=== PATIENT | male | born 1950 | race Caucasian/White ===

== ENCOUNTER → 2023-09-30 10:44 | Outpatient (REF) | payer MEDICARE, OTHER, SELFPAY ==
[2023-09-30 12:09] LABS: ALT (SGPT) 18 U/L (0-50); AST (SGOT) 31 U/L (17-59); Albumin 4.4 g/dl (3.5-5.0); Alkaline Phosphatase 36 U/L (38-126); Direct Bilirubin 0.6 mg/dl (0.0-0.4); Glucose 83 mg/dl (70-99); HDL Cholesterol 55 mg/dl; LDL Cholesterol, Calculated 26 mg/dl; Total Bilirubin 0.6 mg/dl (0.2-1.3); Total Cholesterol 105 mg/dl (50-199); Total Protein 6.4 g/dl (6.3-8.2); Triglyceride 123 mg/dl (10-149); Very Low Density Lipoprotein 24 mg/dl (0-30)
[2023-09-30 12:13] LABS: Glycohemoglobin (HgbA1c) 6.3 % (4.0-5.6)
[2023-10-04 08:35] LABS: Pancreatic Elastase, Fecal 80 ug/g (>=100)
== END ==
LOC: REG 10:44
PROVIDERS: ATTENDING PHYSICIAN Internal Medicine Gastroenterology; FAMILY PHYSICIAN Internal Medicine
DX: K86.1 Other chronic pancreatitis (principal); E11.59 Type 2 diabetes mellitus with other circulatory complications; E78.2 Mixed hyperlipidemia; I10 Essential (primary) hypertension
CPT/HCPCS: 36415; 80061; 80076; 82653; 82947; 83036

== ENCOUNTER → 2024-02-15 09:20 | Outpatient (REF) | payer MEDICARE, OTHER, SELFPAY ==
[2024-02-15 10:50] LABS: Protein/creatinine Ratio 0.1; Urine Protein 5 mg/dl
[2024-02-15 11:04] LABS: % Basophils 0.4 % (0-2); % Eosinophils 2.2 % (0-6); % Immature Granulocytes 0.4 % (0-0.5); % Lymphocytes 21.9 % (20.5-51.1); % Monocytes 7.8 % (1.7-9.3); % Neutrophils 67.3 % (42.2-75.2); Absolute Eosinophils 0.1 10^3/uL (0-0.7); Absolute Lymphocytes 1.2 10^3/uL (1.2-3.4); Absolute Monocytes 0.4 10^3/uL (0.1-0.6); Absolute Neutrophils 3.7 10^3/uL (1.4-6.5); Hematocrit 42.8 % (39.0-52.0); Hemoglobin 14.1 g/dL (13.0-18.0); Mean Corp Hgb Conc. 32.9 g/dL (33.0-37.0); Mean Corpuscular Hgb 31.3 pg (27.0-31.0); Mean Corpuscular Volume 94.9 fL (80.0-94.0); Mean Platelet Volume 12.3 fL (7.4-10.4); Nucleated Red Blood Cells % 0 % (-); Platelet Count 122 10^3/uL (130-400); Red Blood Cell Count 4.51 10^6/uL (4.70-6.10); Red Cell Dist. Width 12.1 % (11.5-14.5); White Blood Cell Count 5.5 10^3/uL (4.8-10.8)
[2024-02-15 11:55] LABS: ALT (SGPT) 15 U/L (0-50); AST (SGOT) 29 U/L (17-59); Albumin 4.7 g/dl (3.5-5.0); Alkaline Phosphatase 34 U/L (38-126); Blood Urea Nitrogen 29 mg/dl (9-20); Carbon Dioxide 30 mmol/L (22-30); Chloride 102 mmol/L (98-107); Direct Bilirubin 0.3 mg/dl (0.0-0.4); Glucose 88 mg/dl (70-99); HDL Cholesterol 59 mg/dl; LDL Cholesterol, Calculated 49 mg/dl; Magnesium 1.8 mg/dl (1.6-2.3); Phosphorus 3.6 mg/dl (2.5-4.5); Potassium 4.9 mmol/L (3.5-5.1); Sodium 140 mmol/L (135-145); Total Bilirubin 0.6 mg/dl (0.2-1.3); Total Cholesterol 126 mg/dl (50-199); Total Protein 6.8 g/dl (6.3-8.2); Triglyceride 94 mg/dl (10-149); Very Low Density Lipoprotein 18 mg/dl (0-30); eGFR 52.74
[2024-02-15 12:15] LABS: Glycohemoglobin (HgbA1c) 6.1 % (4.0-5.6)
[2024-02-16 09:26] LABS: Intact PTH 22.5 pg/ml (13.6-85.8)
[2024-02-17 12:20] LABS: Tacrolimus (Prograft - FK506) 2.9 ng/mL
== END ==
LOC: REG 09:20
PROVIDERS: ATTENDING PHYSICIAN Specialist; FAMILY PHYSICIAN Internal Medicine
DX: Z94.0 Kidney transplant status (principal); E11.59 Type 2 diabetes mellitus with other circulatory complications; E78.5 Hyperlipidemia, unspecified
CPT/HCPCS: 36415; 80053; 80061; 80197; 82248; 82570; 83036; 83735; 83970; 84100; 84156; 85025

== ENCOUNTER → 2024-04-18 15:04 | Outpatient (REF) | payer MEDICARE, OTHER, SELFPAY ==
[2024-04-18 16:03] LABS: % Basophils 0.2 % (0-2); % Eosinophils 0.5 % (0-6); % Immature Granulocytes 1.5 % (0-0.5); % Lymphocytes 36.1 % (20.5-51.1); % Monocytes 8.2 % (1.7-9.3); % Neutrophils 53.5 % (42.2-75.2); Absolute Immature Granulocytes 0.1 10^3/uL (0-0.05); Absolute Lymphocytes 1.5 10^3/uL (1.2-3.4); Absolute Monocytes 0.3 10^3/uL (0.1-0.6); Absolute Neutrophils 2.2 10^3/uL (1.4-6.5); Mean Corp Hgb Conc. 33.3 g/dL (33.0-37.0); Mean Corpuscular Hgb 32.4 pg (27.0-31.0); Mean Corpuscular Volume 97.3 fL (80.0-94.0); Mean Platelet Volume 12.3 fL (7.4-10.4); Nucleated Red Blood Cells % 0 % (-); Platelet Count 95 10^3/uL (130-400); Red Blood Cell Count 4.01 10^6/uL (4.70-6.10); Red Cell Dist. Width 12.2 % (11.5-14.5)
[2024-04-18 16:10] LABS: ALT (SGPT) 21 U/L (0-50); AST (SGOT) 33 U/L (17-59); Albumin 4.3 g/dl (3.5-5.0); Alkaline Phosphatase 33 U/L (38-126); Amylase 52 U/L (30-110); Direct Bilirubin 0.3 mg/dl (0.0-0.4); Lipase 97 U/L (23-300); Total Bilirubin 0.6 mg/dl (0.2-1.3); Total Protein 6.2 g/dl (6.3-8.2)
== END ==
LOC: REG 15:04
PROVIDERS: ATTENDING PHYSICIAN Internal Medicine
DX: R10.13 Epigastric pain (principal); Z86.79 Personal history of other diseases of the circulatory system; I48.0 Paroxysmal atrial fibrillation
CPT/HCPCS: 36415; 80076; 82150; 83690; 85025

== ENCOUNTER 2024-05-15 10:17 | Inpatient (IN) | payer MEDICARE, OTHER, SELFPAY ==
[2024-05-15 06:54] VITALS: BP 128/69
--- NOTE | 2024-05-15 07:24 | ED.MUSCINJ ---
HPI-Injury
General
Chief Complaint: Musculo-Skeletal Complaint
Source: patient
Exam Limitations: none
Time Seen by Provider: 05/15/24 07:24
Nursing documentation reviewed up to this point in time: agreed with
History of Present Illness-Injury
Initial Injury comments:
74-year-old male with history of acute on chronic pancreatitis, renal transplant, PAF on Eliquis, CABG, polycythemia vera, gout, chronic alcohol use disorder, chronic pain under care of [facility], is on day 8 of [facility], presents for
swelling, pain right elbow.
'My arm is killing me.'
Pain right elbow started one week ago. Was on vacation 3 weeks ago and retuned one week ago. Was lifting heavy suitcases.
Saw [facility] last week and elbow was injected with steroid and pt was told 'it may be infected.'
Has had worsening pain and swelling since.
Denies fever. Chronic nausea/vomiting/diarrhea and has abdominal pain from chronic gastritis. Has Zofran prn. Denies nausea at this time. Last emesis 'a few days ago.' On Prilosec BID past two weeks from PCP. Followed by GI.
Past History
Past History
ED Past Medical History: Arrthythmia (paroxysmal afib), CAD, HTN, Hypercholesterolemia, [place], Other (thrombocytopenia, polycythemia vera.), Other (DVT) and Other
ED Past Surgical History: Cardiac (CABG 2006) and Other (renal transplant 2004)
Patient has exhibited threatening behavior?: No
PSI?: No
Social History
Tobacco: Non-smoker
Alcohol: Chronic alcoholic (states he no longer drinks)
Personal:
Living: with family
Review of Systems
Review of Systems
Allergies reviewed?: Yes
All Other Systems: ROS reviewed and negative except as documented in HPI and ROS
Constitutional: Denies fever or chills
Respiratory: Denies trouble breathing
Cardiac: Denies chest pain
ABD/GI: Reports abdominal pain (chronic); Denies nausea, vomiting or diarrhea
Musculoskeletal: Reports other (pain, redness, swelling right elbow)
Neurological: Reports no symptoms
Phy Exam
Physical Exam
Physical Exam:
GENERAL: No acute distress. A&Ox3.
CONSTITUTIONAL: Afebrile.
EYES: clear, conjunctivae normal
ENMT: moist mucus membranes, Pharynx nl
RESPIRATORY: Regular respirations, nonlabored, lungs clear.
CARDIOVASCULAR: Regular rate and rhythm, no murmurs, no rubs.
GI: Soft, nontender, normal BS
MUSCULOSKELETAL: Right elbow mildly swollen, mildly erythematous lateral and posteriorly, full ROM but with pain, tender to touch, warm. Distal n/v intact. Moves with ease. Well perfused.
SKIN: Warm, dry, pink
PSYCH: anxious mood and affect. Well kept, interactive and appropriate
NEUROLOGIC: Awake, alert and oriented. No focal neurological deficits
Injury Course
Orders/Labs/Results
Orders:
Orders
05/15/24 07:33
HYDROmorphone [Dilaudid] 1 mg IV NOW STA
05/15/24 07:34
Ondansetron Injectable [Zofran] 4 mg IV NOW STA
Elbow, Right 3 View [CR Elbow - Right Min 3 Views] Urgent
Comment:
Reason For Exam: red, swollen,painful
05/15/24 08:04
Complete Blood Count/With Diff Urgent
Comprehensive Metabolic Panel Urgent
Uric Acid Urgent
05/15/24 09:22
0.9% Sodium Chloride 500 ml [Nss] 500 ml IV BOLUS
05/15/24 09:36
Vancomycin [Vancocin] 1,500 mg 0.9% Sodium Chloride [Nss] 20 ml 0.9% Sodium Chloride 250 ml [Nss] 250 ml IV NOW
05/15/24 09:52
Add On- LAB Routine
Tests Added?: tacrolimus level
05/15/24 Lunch
Cholesterol Lowering
At Your Request: Full Participation
Cholesterol Lowering: Sodium, 2 Gram
05/15/24 10:04
INFECTIOUS DISEASE CONSULT Routine
Consulting Provider: Ezio Jalloh
Was physician already notified: Yes
ORTHOPEDIC CONSULT Routine
Consulting Provider: Eddie Peck
Was physician already notified: Yes
05/15/24 10:07
Admit/Transfer Patient As Directed
Co-Sign Provider:
Level of Care: Inpatient admission
Assign to:: Telemetry
Physician / Group: Neeraj/hospitalist
Diagnosis: R elbow bursitis
Reason for Telemetry: Arrhythmia
Date to Stop Telemetry: 05/18/24
Time to Stop Telemetry: 11:00
Reason for Hospitalization: R elbow bursitis
Expected length of stay greater than two midnights?: Yes
ELOS- Estimated Length of Stay in days: 3
I certify the patient meets the requirements for IP care: Yes
PRN Pain Medication Management As Directed
May give lesser potent ordered pain med per pt: Yes
preference::
Protocol:: Medication orders for pain may be administered in a
manner that supports deferring to patient preference
when the pt is:
- Requesting an ordered lesser potent pain medication.
Least to most potent pain medications are defined
as: acetaminophen < NSAID < tramadol < opioids
(morphine, oxycodone, hydromorphone).
- Requesting a lesser dose of the same medication IF
ORDERED.
- Requesting a less intrusive route of administration
if both routes are prescribed by the provider (PO <
IV).
05/15/24 10:10
Code Status As Directed
Resuscitation Status: Full Code
05/15/24 11:53
Oxycodone [Roxicodone] 20 mg PO Q6HPRN PRN
05/15/24 14:08
0.9% Sodium Chloride 1000 ml [Nss] 1,000 ml IV 60 mls/hr
Bisacodyl [Dulcolax] 10 mg RECTAL [id number] PRN
Dextrose 50%-Water [Dextrose 50% Syringe] 12.5 grams IV [id number] PRN
Docusate W/Senna [Senokot-S] 1 tablet PO BIDPRN PRN
Glucagon [GlucaGen] 1 mg IM PRN PRN
Insulin Aspart Corrective Low [Novolog Flexpen-Low Resistance] See Protocol SC AC
Morphine Sulfate 2 mg IV Q4HPRN PRN
Ondansetron Injectable [Zofran] 4 mg IV Q6HPRN PRN
Pantoprazole [Protonix IV] 40 mg IV DAILY
Polyethylene Glycol Powder [Miralax] 17 grams PO DAILYPRN PRN
05/15/24 14:08
Activity As Directed
Activity Level: As Tolerated
Bedside Glucose Monitoring As Directed
Frequency: AC&HS
Additional Instructions:: Change to q6h if pt on TPN, tube feeding or not eating
Vital Signs As Directed
Frequency: Per unit guidelines
DX Deep Vein Thrombosis Video Routine
05/15/24 18:00
Rosuvastatin Calcium [Crestor] 20 mg PO QPM
Tacrolimus [Prograf] 0.5 mg PO QPM
05/15/24 20:00
Fenofibrate [Tricor] 48 mg PO BID
Mycophenolate [Cellcept] 500 mg PO BID
Tacrolimus [Prograf] 1 mg PO BID
05/16/24 06:00
Basic Metabolic Panel IN AM
Complete Blood Count/With Diff IN AM
Glycohemoglobin (HgbA1c) IN AM
Magnesium IN AM
05/16/24 08:00
Glimepiride [Amaryl] 2 mg PO DAILY
Metoprolol Xl [Toprol Xl] 12.5 mg PO DAILY
Prednisone [Deltasone] 5 mg PO DAILY
05/17/24 06:00
Basic Metabolic Panel IN AM
Complete Blood Count/With Diff IN AM
Magnesium IN AM
05/18/24 06:00
Basic Metabolic Panel IN AM
Complete Blood Count/With Diff IN AM
Magnesium IN AM
05/18/24 11:00
DC Protocol for Telemetry ONCE
05/19/24 06:00
Basic Metabolic Panel IN AM
Complete Blood Count/With Diff IN AM
05/20/24 06:00
Basic Metabolic Panel IN AM
Complete Blood Count/With Diff IN AM
05/21/24 06:00
Basic Metabolic Panel IN AM
Complete Blood Count/With Diff IN AM
05/22/24 06:00
Basic Metabolic Panel IN AM
Complete Blood Count/With Diff IN AM
Abnormal Lab Results
05/15/24
08:04
RBC 4.34 L 10^6/uL
(4.70-6.10)
Hct 38.5 L %
(39.0-52.0)
MCH 31.1 H pg
(27.0-31.0)
MPV 11.9 H fL
(7.4-10.4)
Abs Immat Gran (auto) 0.1 H 10^3/uL
(0-0.05)
Absolute Neuts (auto) 8.2 H 10^3/uL
(1.4-6.5)
Absolute Lymphs (auto) 0.5 L 10^3/uL
(1.2-3.4)
Absolute Monos (auto) 1.3 H 10^3/uL
(0.1-0.6)
Neutrophils % 81.9 H %
(42.2-75.2)
Lymphocytes % 4.5 L %
(20.5-51.1)
Monocytes % 13.0 H %
(1.7-9.3)
Sodium 128 L mmol/L
(135-145)
Potassium 5.4 H mmol/L
(3.5-5.1)
Chloride 91 L mmol/L
(98-107)
BUN 56 H mg/dl
(9-20)
Creatinine 2.7 H mg/dL
(0.7-1.3)
Glucose 288 H mg/dl
(70-99)
05/15/24 08:04
05/15/24 08:04
MDM/Problems Addressed
Differential Diagnosis Includes:
septic joint, cellulitis, osteoarthritis, gout
MDM/Problems Addressed:
74-year-old male with history of acute on chronic pancreatitis, renal transplant, PAF on Eliquis, CABG, polycythemia vera, gout, chronic alcohol use disorder, chronic pain under care of [facility], is on day 8 of [facility], presents for
swelling, pain right elbow.
'My arm is killing me.'
Pain right elbow started one week ago. Was on vacation 3 weeks ago and retuned one week ago. Was lifting heavy suitcases.
Saw [facility] last week and elbow was injected with steroid and pt was told 'it may be infected.'
Has had worsening pain and swelling since.
Denies fever. Chronic nausea/vomiting/diarrhea and has abdominal pain from chronic gastritis. Has Zofran prn. Denies nausea at this time. Last emesis 'a few days ago.' On Prilosec BID past two weeks from PCP. Followed by GI.
9:15 AM:
CBC elevated neutrophils otherwise no clinically significant abnormality
CMP: Sodium 128, potassium 5.4, BUN/creat 56/2.7, glucose 288
Xray R elbow: STS, no bony abnormality
Plan: Admit: Cellulitis right elbow, Hyponatremia, mild hyperkalemia, acute kidney insufficiency in renal transplant patient
Hospitalist notified of admission
In lieu of kidney status, spoke with Liv, Pharmacist for Vanco dosage: recommends 20mg/kg. or 1500 mg now the check level tomorrow.
Pt and updated
Pt states no relief of pain after Dilaudid, cold compress provided.
*Critical Care Note
Total Time (30-74mins, 75-104mins- exclusive of procedures): Not Applicable
ED Attending Note
-
Portions of this chart may have been created with voice recognition software.� Occasional wrong word or��sound alike� substitutions may have occurred due to the inherent limitations of voice recognition software.
Discharge Plan
Departure
Patient Disposition: Admit
Date of Disposition: 05/15/24
Time of Disposition: 09:14
Admit to: Med/Surg
Presentation/result/management discussed w/ accepting MD/DO: Hospitalist
Condition: Fair
Discharge Problem:
Renal transplant, status post, Acute hyponatremia, Acute kidney insufficiency, Cellulitis of right elbow
Interventions
Interventions:
*Risk Screen - Suicide Last Done: 05/15/24 06:59
*General Assessment Last Done: 05/15/24 07:55
*Neglect/Abuse Screening Last Done: 05/15/24 06:59
ED- Fall Risk Assessment Last Done: 05/15/24 07:55
*ED COVID-19 Vaccine History Last Done: 05/15/24 07:55
ED-Musculoskeletal Assessment Last Done: 05/15/24 07:55
[2024-05-15] MEDS: DILAUDID 1 MG IV ×3 (08:04→20:56)
[2024-05-15] MEDS: ZOFRAN 4 MG IV (08:04)
[2024-05-15 08:43] LABS: % Basophils 0.1 % (0-2); % Immature Granulocytes 0.5 % (0-0.5); % Lymphocytes 4.5 % (20.5-51.1); % Neutrophils 81.9 % (42.2-75.2); Absolute Immature Granulocytes 0.1 10^3/uL (0-0.05); Absolute Lymphocytes 0.5 10^3/uL (1.2-3.4); Absolute Monocytes 1.3 10^3/uL (0.1-0.6); Absolute Neutrophils 8.2 10^3/uL (1.4-6.5); Hematocrit 38.5 % (39.0-52.0); Hemoglobin 13.5 g/dL (13.0-18.0); Mean Corp Hgb Conc. 35.1 g/dL (33.0-37.0); Mean Corpuscular Hgb 31.1 pg (27.0-31.0); Mean Corpuscular Volume 88.7 fL (80.0-94.0); Mean Platelet Volume 11.9 fL (7.4-10.4); Nucleated Red Blood Cells % 0 % (-); Platelet Count 181 10^3/uL (130-400); Red Blood Cell Count 4.34 10^6/uL (4.70-6.10); Red Cell Dist. Width 12.8 % (11.5-14.5)
[2024-05-15 08:57] LABS: ALT (SGPT) 19 U/L (0-50); AST (SGOT) 20 U/L (17-59); Albumin 4.1 g/dl (3.5-5.0); Alkaline Phosphatase 41 U/L (38-126); Blood Urea Nitrogen 56 mg/dl (9-20); Calcium 9.4 mg/dl (8.4-10.2); Carbon Dioxide 22 mmol/L (22-30); Chloride 91 mmol/L (98-107); Glucose 288 mg/dl (70-99); Potassium 5.4 mmol/L (3.5-5.1); Sodium 128 mmol/L (135-145); Total Bilirubin 1.3 mg/dl (0.2-1.3); Total Protein 6.3 g/dl (6.3-8.2); eGFR 23.83
[2024-05-15 09:29] LABS: Uric Acid 4.9 mg/dl (3.5-8.5)
--- NOTE | 2024-05-15 09:44 | HPS.HSE ---
Family Physician
-
Family Physician: Richard Paz
Chief Complaint
-
R elbow pain
History of Present Illness
HPI: 74-year-old male with PMH chronic pancreatitis, renal transplant, PAF on Eliquis, CABG, polycythemia vera, gout, chronic back pain under care of [facility], currently day 8 of , presented for swelling and pain in right
elbow.
Pain in right elbow started one week ago. He was on vacation 3 weeks ago and retuned one week ago. He was lifting heavy suitcases.
Pt saw [facility] the week prior and his elbow was injected with steroid. Has had worsening pain and swelling since.
Pt denies to fever/chills etc.
He endorsed to chronic nausea/vomiting/diarrhea and has abdominal pain from chronic gastritis. He us on Prilosec BID past two weeks from PCP. Followed by GI.
Medical History
Past Medical History
Past Medical History: Reports Other (Arrthythmia (paroxysmal afib), CAD, HTN, Hypercholesterolemia, [place], Other (thrombocytopenia, polycythemia vera) and Other (DVT))
Past Surgical History: Reports Other (Cardiac (CABG 2006) and Other (renal transplant 2004))
Social History
Tobacco: Non-smoker
Alcohol: Former (quit 1 year ago)
Personal:
Living: With Family
Family History
Family History: Not pertinent
Allergies / Home Medications
Allergies reflects when Allergies were last updated in [employer].
Home Medications with original date entered in [employer]
Allergy/Medication List:
Allergies
Allergy/AdvReac Type Severity Reaction Status Date / Time
No Known Allergies Allergy Verified 05/15/24 06:59
Home Medications
fenofibrate nanocrystallized 48 mg tablet (Tricor) 48 mg PO BID High cholesterol 03/12/08
mycophenolate mofetil 250 mg capsule (CellCept) 500 mg PO BID Transplant 03/12/08
tacrolimus 0.5 mg capsule, immediate-release 0.5 mg PO QPM Transplant 01/01/16
tacrolimus 1 mg capsule, immediate-release 1 mg PO BID Transplant 01/01/16
apixaban 5 mg tablet (Eliquis) 5 mg PO BID #60 tabs 04/21/20
glimepiride 2 mg tablet 2 mg PO DAILY 08/16/22
prednisone 5 mg tablet 5 mg PO DAILY Transplant #0 tabs 08/17/22
metoprolol succinate 25 mg tablet,extended release 24 hr 12.5 mg PO DAILY 03/22/23
multivitamin 1 tab PO DAILY 03/22/23
pantoprazole 40 mg tablet,delayed release 40 mg PO DAILY #30 tabs 03/25/23
oxycodone 20 mg tablet 20 mg PO Q6HPRN PRN severe pain 05/15/24
rosuvastatin 20 mg tablet 20 mg PO QPM 05/15/24
multivitamin 1 tab PO DAILY 03/22/23
Review of Systems
-
Abdomen/GI: Reports See HPI
Musculoskeletal: Reports See HPI, Joint Pain (R elbow) and Joint Swelling (R elbow)
Physical Exam
Vital Signs
Vital Signs
Temp Pulse Resp BP Pulse Ox
37.1 C 82 16 128/69 96
05/15/24 06:54 05/15/24 06:54 05/15/24 06:54 05/15/24 06:54 05/15/24 06:54
Physical Exam
General: Well Developed, Well Nourished, Conversant and Pain
HEENT: NormoCephalic, Moist mucous membranes and Atraumatic
Respiratory: Clear and Non Labored Respirations; No Accessory Resp Muscle Use
Cardiac: S1/S2 and Regular Rhythm; No Murmur or Rub
GI: Soft, Non Tender, Non Distended and Normal Bowel Sounds; No Organomegaly
Rectal: Deferred by Provider
Musculoskeletal: Other (R elbow swelling and redness)
Neuro: Awake and Alert
Psych: Calm and Intact Judgment/Insight
Laboratory Results
-
05/15/24 08:04
05/15/24 08:04
Laboratory Results
Total Bilirubin 1.3 mg/dl (0.2-1.3) 05/15/24 08:04
AST 20 U/L (17-59) 05/15/24 08:04
ALT 19 U/L (0-50) 05/15/24 08:04
Alkaline Phosphatase 41 U/L (38-126) 05/15/24 08:04
Data Reviewed
-
Diagnostic Radiology: Report Reviewed by me
Lab Data: Labs Reviewed by me
Impression/Plan
-
HPI: 74-year-old male with PMH chronic pancreatitis, renal transplant, PAF on Eliquis, CABG, polycythemia vera, gout, chronic back pain under care of [facility], currently day 8 of [facility], presented for swelling and pain in right
elbow.
Pain in right elbow started one week ago. He was on vacation 3 weeks ago and retuned one week ago. He was lifting heavy suitcases.
Pt saw [facility] the week prior and his elbow was injected with steroid. Has had worsening pain and swelling since.
Pt denies to fever/chills etc.
He endorsed to chronic nausea/vomiting/diarrhea and has abdominal pain from chronic gastritis. He us on Prilosec BID past two weeks from PCP. Followed by GI.
A/P:
# Right elbow pain and swelling, likely due to bursitis with surrounding cellulitis
Elbow XR: Diffuse soft tissue swelling of the right elbow. No definite radiographic evidence of osteomyelitis.
s/p Vanc in ED
Ortho CS for arthrocentesis , holding REVERSE ENGINEER Eliquis for now
ID CS for Abx recc
Pain control with REVERSE ENGINEER oxycodone and IV morphine
Eventual PT OT
# DANYA on CKD stage 2, suspect DANYA 2/2 dehydration
# Polycystic Kidney Disease
# s/p Renal Transplant
SCr at 2.7 on admission, from baseline 1.1
s/p 500 cc bolus in ED, cont gentle IVF
Continue tacrolimus and check level.
continue REVERSE ENGINEER prednisone and Cellcept
Consider renal CS if SCr does not improve
# Hyponatremia, likely hypovolemic
Sodium level 128 on admission
IVF as above
# chronic pancreatitis
# Paroxysmal A fib
REVERSE ENGINEER Eliquis for stroke risk reduction.
# DMT2
SSI low
REVERSE ENGINEER glimepiride
# Chronic Back Pain
# DDD
Patient severely limited in terms of spine mobility due to pain / stiffness.
Cont Pain control with REVERSE ENGINEER oxycodone and tizanidine
Followed by Pain Management as an outpatient.
DVT Prophylaxis:� REVERSE ENGINEER Eliquis on hold anticipating arthrocentesis, HSQ for now
Code Status:� Full
[2024-05-15] MEDS: VANCOCIN 300 MG IV (09:49)
[2024-05-15] MEDS: NSS 500 IV (09:49)
[2024-05-15] MEDS: VANCOCIN 300 ML IV (09:49)
[2024-05-15 11:35] VITALS: BP 130/90
[2024-05-15] MEDS: ROXICODONE 20 MG PO ×2 (12:03→18:27)
[2024-05-15] MEDS: NOVOLOG FLEXPEN-LOW RESISTANCE SC (14:11)
--- NOTE | 2024-05-15 14:11 | CON.ID ---
Consultation
-
Date/Time Consultation Requested: 05/15/24 10:04
Date/Time Consultation Performed: 05/15/24 14:11
Requesting Provider: Dr Pickard
Performing Provider: Dr Pascual
Reason for Consultation: R elbow pain
Chief Complaint / Past History
Chief Complaint
right elbow pain
History of Present Illness
Mr Dee is a 74 year old male with history of renal transplant 2004, chronic pancreatitis, alcohol use disorder, gout who presented here today for right elbow pain and swelling x 1 week. Saying pain began with lifting heavy suitcases 3 weeks ago.
Reports he had a steroid injection into the elbow 1 week ago and was told that it might be infected at that time (?) No fevers or chills. Reports chronic gastritis with chronic nausea, vomiting and diarrhea.
Since arrival here he has been afebrile, bp stable, wbc count 10.0, hgb 13.5, plt 181, L shift is noted, Na 128, K 5.4, Cr 2.7 today from 1.3 at baseline, a1c within the last two months 6.1, tacro level pending, elbow xray today: diffuse soft tissue
swelling, no definite effusion, no evidence of osteomyelitis, had a dose of vancomycin and not currently on antibiotics
Past History
Additional Past Medical History:
Arrthythmia (paroxysmal afib), CAD, HTN, Hypercholesterolemia, [place], Other (thrombocytopenia, polycythemia vera) and Other (DVT)
Additional Past Surgical History:
(Cardiac (CABG 2006) and Other (renal transplant 2004))
Allergy History:
No Known Allergies Allergy (Verified 05/15/24 06:59)
Medications Reviewed: Yes
Social History
Tobacco: Non-Smoker
Alcohol: Former (quit 1 year ago)
Personal:
Family History
Family History: Not Pertinent
Review of Systems
Review of Systems
General: Negative Fever or Chills
All systems: All other systems were reviewed and were negative
Vital Signs
Temp Pulse Resp BP Pulse Ox
98.2 F 66 18 130/90 96
05/15/24 10:00 05/15/24 13:45 05/15/24 13:45 05/15/24 11:35 05/15/24 13:45
Physical Exam
Physical Exam
Constitutional: No Acute Distress
Cardiovascular: Regular Rate and S1/S2; Negative Murmur or Rub
Pulmonary: Clear and Symmetric; Negative Wheezes, Rales or Rhonchi
Gastrointestinal: Soft, Non Tender, Non Distended and Normal Bowel Sounds
Musculoskeletal: Other (marked swelling, decreased range of motion, mild erythema over right elbow)
Skin: Warm and Dry; Negative Rash or Jaundice
Lab / Diagnostic Study Results
05/15/24 08:04
05/15/24 08:04
Abs Immat Gran (auto) 0.1 10^3/uL (0-0.05) H 05/15/24 08:04
Absolute Neuts (auto) 8.2 10^3/uL (1.4-6.5) H 05/15/24 08:04
Absolute Lymphs (auto) 0.5 10^3/uL (1.2-3.4) L 05/15/24 08:04
Absolute Monos (auto) 1.3 10^3/uL (0.1-0.6) H 05/15/24 08:04
Absolute Basos (auto) 0.0 10^3/uL (0-0.2) 05/15/24 08:04
Immature Gran % 0.5 % (0-0.5) 05/15/24 08:04
Neutrophils % 81.9 % (42.2-75.2) H 05/15/24 08:04
Lymphocytes % 4.5 % (20.5-51.1) L 05/15/24 08:04
Monocytes % 13.0 % (1.7-9.3) H 05/15/24 08:04
Eosinophils % 0.0 % (0-6) 05/15/24 08:04
Basophils % 0.1 % (0-2) 05/15/24 08:04
Assessment / Plan
Suspected Septic R Elbow Joint
DANYA on CKD
Immunosuppression
S/p Renal Transplant 2004
Gout
- blood cultures x2 recommended when [place] septic joint considered
- Xray without definite lesions
- MR elbow - noncontrast per discussion with Dr Garber radiology
- uric acid level on the serum - h/o gout and currently in DANYA which can lead to gout flare
- no known h/o lyme - sent serology and please send PCR from synovial fluid
- would tap joint when feasible whether with orthopedics or IR
- records request from Dr Markos Zuleta [phone]
- continue vancomycin
- add ceftriaxone
- pain management per medical team
- follow clinically
[2024-05-15] MEDS: NSS 1000 IV (14:53)
[2024-05-15] MEDS: PROTONIX IV 40 MG IV (14:54)
[2024-05-15] MEDS: MORPHINE SULFATE 2 MG IV (14:54)
[2024-05-15 16:39] VITALS: BP 153/83
[2024-05-15] MEDS: HEPARIN 5000 UNITS SC ×2 (16:46→23:10)
[2024-05-15 17:18] LABS: Glucose - Point of Care 216 mg/dl (70-99)
--- NOTE | 2024-05-15 17:27 | CON.ORTHO ---
Consultation
-
Date/Time Consultation Requested: 05/15/2024
Date/Time Consultation Performed: 9 Am
Requesting Provider: Primary
Performing Provider: Liv
Reason for Consultation: Right elbow pain
Consultation - Orthopedics
History
74-year-old male [id number] presented v to the emergency department complaints of right elbow pain. He was admitted to the hospitalist service and orthopedics was consulted for further evaluation and treatment. Reports he has had several
weeks of pain that is acutely worsened the last few days. He was seen on outpatient basis by her provider and was reportedly given a steroid injection right elbow. He is unclear what his diagnosis was or where he was injected in his elbow. He
reports diffuse pain with any motion of the right elbow. Patient with a history of chronic pancreatitis, gout, polycythemia vera as well as renal transplantation 2004 on tacrolimus. Denies any fevers or chills.
Allergies / Home Medications
Past medical history: Coronary artery disease, A-fib, hypertension, hypercholesterolemia, [place], polycythemia vera, DVT, chronic pancreatitis
Past surgical history: CABG, renal transplant 2004
Social history: Non-smoker, former alcohol use,
Family history: Not pertinent
Allergy/AdvReac Type Severity Reaction Status Date / Time
No Known Allergies Allergy Verified 05/15/24 06:59
�Medication �Instructions �Recorded
fenofibrate nanocrystallized 48 mg 48 mg PO BID High cholesterol 03/12/08
tablet (Tricor)
mycophenolate mofetil 250 mg 500 mg PO BID Transplant 03/12/08
capsule (CellCept)
tacrolimus 0.5 mg capsule, 0.5 mg PO QPM Transplant 01/01/16
immediate-release
tacrolimus 1 mg capsule, 1 mg PO BID Transplant 01/01/16
immediate-release
apixaban 5 mg tablet (Eliquis) 5 mg PO BID #60 tabs 04/21/20
glimepiride 2 mg tablet 2 mg PO DAILY 08/16/22
prednisone 5 mg tablet 5 mg PO DAILY Transplant #0 tabs 08/17/22
metoprolol succinate 25 mg 12.5 mg PO DAILY 03/22/23
tablet,extended release 24 hr
multivitamin 1 tab PO DAILY 03/22/23
pantoprazole 40 mg tablet,delayed 40 mg PO DAILY #30 tabs 03/25/23
release
oxycodone 20 mg tablet 20 mg PO Q6HPRN PRN severe pain 05/15/24
rosuvastatin 20 mg tablet 20 mg PO QPM 05/15/24
Vital Signs / Lab Results
Temp Pulse Resp BP Pulse Ox
98.0 F 76 20 153/83 100
05/15/24 16:39 05/15/24 16:39 05/15/24 16:39 05/15/24 16:39 05/15/24 16:39
05/15/24 08:04
05/15/24 08:04
10 point review systems reviewed and negative unless otherwise stated
General: Uncomfortable appearing, in some distress at rest
Musculoskeletal right upper extremity
Has diffuse tenderness palpation about the right elbow including tenderness palpation over tip of olecranon, common extensors, lateral epicondyle, medial epicondyle, flexor pronator mass
Limited active flexion extension pronation supination secondary to pain
There are some reproducible lateral elbow pain with resisted wrist extension
There is no palpable fluctuance or palpable superficial fluid collection over the tip of olecranon
There is some moderate bogginess however diffusely without discrete fluid palpable
There is faint erythema diffusely over elbow
Diagnostic studies
X-rays elbow reviewed by myself. No fracture dislocations. Well-preserved joint space. There is negative posterior fat pad sign.
Assessment / Plan
74-year-old male history of renal transplant, gout with several weeks of worsening right elbow pain. Patient not currently septic in appearance. Patient status post recent corticosteroid injection. Differential would include septic arthritis
versus septic bursitis, tennis elbow, gout, overlying cellulitis. There is low index of suspicion based on examination for septic olecranon bursitis given lack of discrete fluid collection. Given patient's recent steroid injection, injection
certainly on the differential. There is no obvious effusion clinically or on plain radiographs. There is an MRI ordered and hopefully this will shed some light on whether or not patient has fusion or discrete fluid collection that may be amenable
to aspiration. He does have some clinical evidence of a lateral condyle lightest although I doubt this would be the only contributor to his significant symptoms on examination. I would recommend immobilization, pain control. Antibiotics per
primary team/infectious disease. Please reach out with questions or concerns. Will follow-up MRI to identify if there is evidence of fluid collection that may be amenable to the bedside aspiration or IR guided aspiration.
[2024-05-15] MEDS: STERILE WATER FOR INJECTION 20 ML IV (17:54)
--- NOTE | 2024-05-15 17:55 | PHA.VAN.IN ---
Assessment
- Assessment
Renal Function: Appears elevated from baseline (02/15/24 BASELINE SCR: 1.4)
Concomitant Antimicrobials: ROCEPHIN
- Previous Dosing Experience
Previous Regimen: NONE
Plan
- Plan
Initial / Loading Dose: 1500MG
Maintenance Regimen: DOSING BY RANDOM LEVELS
Monitoring: RANDOM VANCOMYCIN LEVEL 05/16/24 AM
Pharmacokinetics Vancomycin I
- -
Patient Age: 74
Patient Sex: Male
Vancomycin Day #: 1
Indication: Bone And Joint ([R] ELBOW JOINT INFECTION)
Requesting Provider: SERGE
Height / Weight:
Height 5 ft 11 in
Actual Weight 70.9 kg
- Vital Signs / Lab Results
Temp Pulse Resp BP Pulse Ox
98.0 F 76 20 153/83 100
05/15/24 16:39 05/15/24 16:39 05/15/24 16:39 05/15/24 16:39 05/15/24 16:39
Lab Results - Hematology
05/15/24
08:04
WBC 10.0
Lab Results - Chemistry
05/15/24
08:04
BUN 56 H
Creatinine 2.7 H
Albumin 4.1
[2024-05-15] MEDS: ROCEPHIN 2000 MG IV (17:56)
[2024-05-15] MEDS: CRESTOR 20 MG PO (17:56)
[2024-05-15] MEDS: NOVOLOG FLEXPEN-LOW RESISTANCE 2 UNITS SC (18:03)
[2024-05-15] MEDS: PROGRAF 0.5 MG PO (18:26)
[2024-05-15 19:48] VITALS: BP 137/78
[2024-05-15] MEDS: PROGRAF 1 MG PO (20:23)
[2024-05-15] MEDS: TRICOR 48 MG PO (20:23)
[2024-05-15] MEDS: CELLCEPT 500 MG PO (20:43)
[2024-05-15 21:05] LABS: Glucose - Point of Care 257 mg/dl (70-99)
[2024-05-15 23:10] VITALS: BP 126/75
[2024-05-16 03:30] VITALS: BP 128/69
[2024-05-16 07:04] LABS: Blood Urea Nitrogen 40 mg/dl (9-20); Calcium 9.3 mg/dl (8.4-10.2); Carbon Dioxide 16 mmol/L (22-30); Chloride 101 mmol/L (98-107); Estimated Creatinine Clearance 36 ml/min; Glucose 187 mg/dl (70-99); Magnesium 1.6 mg/dl (1.6-2.3); Potassium 5.1 mmol/L (3.5-5.1); Sodium 132 mmol/L (135-145); eGFR 38.77
[2024-05-16 07:06] LABS: % Immature Granulocytes 0.3 % (0-0.5); % Monocytes 12.5 % (1.7-9.3); % Neutrophils 73.2 % (42.2-75.2); Absolute Lymphocytes 0.9 10^3/uL (1.2-3.4); Absolute Monocytes 0.9 10^3/uL (0.1-0.6); Hemoglobin 13.6 g/dL (13.0-18.0); Mean Corp Hgb Conc. 35.1 g/dL (33.0-37.0); Mean Corpuscular Volume 88.5 fL (80.0-94.0); Mean Platelet Volume 11.5 fL (7.4-10.4); Nucleated Red Blood Cells % 0 % (-); Platelet Count 136 10^3/uL (130-400); Red Blood Cell Count 4.35 10^6/uL (4.70-6.10); Red Cell Dist. Width 13.2 % (11.5-14.5); White Blood Cell Count 6.8 10^3/uL (4.8-10.8)
[2024-05-16 07:09] LABS: Vancomycin Random 9.3 ug/ml
[2024-05-16 07:35] VITALS: BP 130/77
[2024-05-16 08:05] LABS: Glucose - Point of Care 192 mg/dl (70-99)
--- NOTE | 2024-05-16 08:38 | PHA.VAN.FU ---
Vancomycin Assessment / Plan
- Assessment
Renal Function: SCR Decreasing
WBC's are: WNL
In the past 24 hrs, patient has been: Afebrile
Concomitant Antimicrobials: ceftriaxone
- Assessment - Therapeutic Drug Monitoring
Random Level: 9.3 - drawn ~20.5H after initial dose of 1500mg
- Dosing Plan
Dosing by Level: Re-dose today (Vanc 1000mg)
- Monitoring Plan
Random Level: 05/17 0600
- Follow Up
Pharmacy will continue to follow.
Vancomycin Follow UP
- -
Patient Age: 74
Patient Sex: Male
Vancomycin Day #: 2
Indication: Bone And Joint
Requesting Provider: Dr. Pascual
Pertinent Antimicrobial Allergies:
NKDA
Height / Weight:
Height 5 ft 11 in
Actual Weight 70.9 kg
Pertinent Past Medical History: Renal Transplant (2004), CKD (baseline ~1.1)
- Vital Signs / Lab Results
Temp Pulse Resp BP Pulse Ox
98.3 F 94 18 130/77 96
05/16/24 07:35 05/16/24 07:35 05/16/24 07:35 05/16/24 07:35 05/16/24 07:35
Lab Results - Hematology
05/15/24 05/16/24
08:04 06:30
WBC 10.0 6.8
Lab Results - Chemistry
05/15/24 05/16/24
08:04 06:30
BUN 56 H 40 H
Creatinine 2.7 H 1.8 H
Estimated Creat Clear 36
Albumin 4.1
Therapeutic Drug Monitoring
Random Vancomycin 9.3 ug/ml 05/16/24 06:30
[2024-05-16] MEDS: NOVOLOG FLEXPEN-LOW RESISTANCE 1 UNITS SC (08:42)
[2024-05-16] MEDS: NSS 1000 IV ×2 (08:42→23:47)
[2024-05-16] MEDS: DELTASONE 5 MG PO (08:43)
[2024-05-16] MEDS: TOPROL XL 12.5 MG PO (08:43)
[2024-05-16] MEDS: PROTONIX IV 40 MG IV (08:43)
[2024-05-16] MEDS: TRICOR 48 MG PO ×2 (08:44→19:14)
[2024-05-16] MEDS: HEPARIN 5000 UNITS SC ×3 (08:44→23:44)
[2024-05-16] MEDS: PROGRAF 1 MG PO ×2 (08:45→19:14)
[2024-05-16] MEDS: AMARYL 2 MG PO (08:45)
[2024-05-16] MEDS: CELLCEPT 500 MG PO ×2 (08:45→19:14)
[2024-05-16] MEDS: DILAUDID 1 MG IV ×2 (08:46→17:08)
[2024-05-16 09:06] LABS: Glycohemoglobin (HgbA1c) 6.4 % (4.0-5.6)
[2024-05-16] MEDS: VANCOCIN 200 IV (10:13)
[2024-05-16 11:16] VITALS: BP 115/72
--- NOTE | 2024-05-16 11:24 | W.PN.HOSP.TC ---
Today's Communication/Plan
-
see A/P
Assessment / Plan
Assessment / Plan
HPI: 74-year-old male with PMH chronic pancreatitis, renal transplant, PAF on Eliquis, CABG, polycythemia vera, gout, chronic back pain under care of [facility], currently day 8 of , presented for swelling and pain in right
elbow.
Pain in right elbow started one week ago. He was on vacation 3 weeks ago and retuned one week ago. He was lifting heavy suitcases.
Pt saw [facility] the week prior and his elbow was injected with steroid. Has had worsening pain and swelling since.
Pt denies to fever/chills etc.
He endorsed to chronic nausea/vomiting/diarrhea and has abdominal pain from chronic gastritis. He us on Prilosec BID past two weeks from PCP. Followed by GI.
A/P:
# Right elbow pain and swelling, Suspected Septic R Elbow Joint
Elbow XR: Diffuse soft tissue swelling of the right elbow. No definite radiographic evidence of osteomyelitis.
cont vancomycin and ceftriaxone per ID
Follow blood cultures x2
Lyme serology sent
Check MR elbow
Ortho CSed for arthrocentesis , recc to follow-up MRI to identify if there is evidence of fluid collection that may be amenable to the bedside aspiration or IR guided aspiration.
holding INSTRUCTOR WATCH ASSEMBLY Eliquis for now in case of procedure
Pain control with INSTRUCTOR WATCH ASSEMBLY oxycodone and IV Dilaudid
Eventual PT OT
# DANYA on CKD stage 2, suspect DANYA 2/2 dehydration
# Polycystic Kidney Disease
# s/p Renal Transplant
SCr at 2.7 -> 1.8; baseline around 1.1
cont gentle IVF
Continue tacrolimus and follow level.
continue INSTRUCTOR WATCH ASSEMBLY prednisone and Cellcept
# Hyponatremia, likely hypovolemic, improved with IVF
Sodium level 128 to 132
IVF as above
# chronic pancreatitis
# Paroxysmal A fib
INSTRUCTOR WATCH ASSEMBLY Eliquis for stroke risk reduction.
# DMT2
SSI low
INSTRUCTOR WATCH ASSEMBLY glimepiride
# Chronic Back Pain
# DDD
Patient severely limited in terms of spine mobility due to pain / stiffness.
Cont Pain control with INSTRUCTOR WATCH ASSEMBLY oxycodone and tizanidine
Followed by Pain Management as an outpatient.
DVT Prophylaxis:�INSTRUCTOR WATCH ASSEMBLY Eliquis on hold anticipating arthrocentesis, HSQ for now
Code Status:�Full
Anticipated Discharge: > 48 hours
Subjective/Interval History
-
Date of Service: May 16, 2024
Objective Data
-
Labs:
Laboratory Results
05/16/24
06:30
WBC 6.8
Hgb 13.6
Hct 39.0
Plt Count 136 D
Sodium 132 L
Potassium 5.1
Chloride 101
Carbon Dioxide 16 L
BUN 40 H
Creatinine 1.8 H
Glucose 187 H
Calcium 9.3
Vital Signs:
Vital Signs
Temp Pulse Resp BP Pulse Ox
36.9 C 81 18 115/72 99
05/16/24 11:16 05/16/24 11:16 05/16/24 11:16 05/16/24 11:16 05/16/24 11:16
I&O
05/15/24 05/16/24 05/17/24
06:59 06:59 06:59
Intake Total 960 / 960
Output Total 400 / 400
Balance 560 / 560
Review of Systems
-
Musculoskeletal: Reports Joint Pain (R elbow )
Physical Exam
-
General: Well Developed, Well Nourished, No Apparent Distress, Comfortable and Conversant
HEENT: Normocephalic and Atraumatic
Respiratory: Clear to Auscultation and Non Labored Respirations; Negative Wheezes, Rales or Accessory Resp Muscle Use
Cardiac: Regular Rhythm and S1/S2
GI: Soft and Nontender
Musculoskeletal: Other (R elbow in sling)
Neuro: Awake, Alert and Oriented
Psych: Calm and Intact Judgement/Insight
Data Reviewed
-
Labs: Labs Reviewed by me and Discussed with Patient
[2024-05-16 12:27] LABS: Glucose - Point of Care 281 mg/dl (70-99)
[2024-05-16] MEDS: NOVOLOG FLEXPEN-LOW RESISTANCE 3 UNITS SC ×2 (12:45→17:10)
[2024-05-16] MEDS: ROXICODONE 20 MG PO (12:54)
--- NOTE | 2024-05-16 12:57 | CM ---
CM reviewed chart, placed call to patient due to Covid positive. Patient resides with spouse in a single story home, four steps to enter (front), two steps to enter (back). Patient denies DME, VN, or SNF history. Patient confirms PCP Dr. Paz,
pharmacy [facility], confirms prescription coverage. Patient denies any needs to CM at this time, will continue to follow for all discharge planning needs.
Plan; home no needs anticipated.
[2024-05-16 15:32] VITALS: BP 116/72
--- NOTE | 2024-05-16 15:47 | W.PN.ID1 ---
Date of Service
Date of Service: May 16, 2024
Today's Communication
await MRI
continue vanc/ceftriaxone
isolation for covid through the end of tomorrow, off of isolation 05/18
Assessment / Plan
Suspected Septic R Elbow Joint
DANYA on CKD
Immunosuppression
S/p Renal Transplant 2004
Gout
- blood cultures x2 in progress no growth to date
- Xray without definite lesions
- MR elbow pending
- uric acid level normal - doesnt rule out gout
- no known h/o lyme - sent serology and please send PCR from synovial fluid if there is fluid aspirated
- if there is sufficient fluid, would tap joint when feasible whether with orthopedics or IR
- records request from Dr Markos Zuleta [phone]
- continue vancomycin and ceftriaxone
COVID
- remains on room air
- no therapies indicated at this time
- isolation 10 days from onset of symptoms - today is day 9
- follow clinically
Chief Complaint
-: Other (septic joint)
Subjective / Review of Systems
afebrile
bp stable
arm still very sore
shares he had gout flare after last episode of covid a few years ago - has not had gout in the elbow before
Vital Signs / Physical Exam
Vital Signs
Vital Signs
Temp Pulse Resp BP Pulse Ox
100.0 F 82 17 116/72 97
05/16/24 15:32 05/16/24 15:32 05/16/24 15:32 05/16/24 15:32 05/16/24 15:32
Physical Exam
Constitutional: No Acute Distress
Cardiovascular: Regular Rate and S1/S2; Negative Murmur or Rub
Pulmonary: Clear and Symmetric; Negative Wheezes or Rales
Gastrointestinal: Soft, Non Tender, Non Distended and Normal Bowel Sounds
Extremities: Other (swelling, mildly red right elbow)
Skin: Warm and Dry; Negative Rash or Jaundice
Objective Data
Lab Data
Lab Results
05/16/24 06:30
05/16/24 06:30
Estimated Creat Clear 36 ml/min 05/16/24 06:30
Total Bilirubin 1.3 mg/dl (0.2-1.3) 05/15/24 08:04
AST 20 U/L (17-59) 05/15/24 08:04
ALT 19 U/L (0-50) 05/15/24 08:04
Alkaline Phosphatase 41 U/L (38-126) 05/15/24 08:04
Most recent labs reviewed.
Micro Results:
05/15/24 17:56 Blood Culture - Pending
Blood/Venous
05/15/24 17:15 Blood Culture - Pending
Blood/Venous
[2024-05-16 16:36] LABS: Glucose - Point of Care 259 mg/dl (70-99)
[2024-05-16] MEDS: ROCEPHIN 2000 MG IV (16:54)
[2024-05-16] MEDS: CRESTOR 20 MG PO (16:54)
[2024-05-16] MEDS: STERILE WATER FOR INJECTION 20 ML IV (16:54)
[2024-05-16] MEDS: PROGRAF 0.5 MG PO (16:54)
[2024-05-16 19:45] VITALS: BP 122/66
[2024-05-16 21:41] LABS: Glucose - Point of Care 250 mg/dl (70-99)
[2024-05-16 23:20] VITALS: BP 123/70
[2024-05-17] VITALS (8 sets, daily range): BP systolic 78–118; BP diastolic 45–79
[2024-05-17] MEDS: DILAUDID 1 MG IV ×4 (04:24→21:55)
[2024-05-17 07:37] LABS: Glucose - Point of Care 160 mg/dl (70-99)
[2024-05-17] MEDS: NOVOLOG FLEXPEN-LOW RESISTANCE 1 UNITS SC ×2 (08:50→17:45)
[2024-05-17] MEDS: ROXICODONE 20 MG PO ×2 (08:51→14:45)
[2024-05-17] MEDS: CELLCEPT 500 MG PO ×2 (08:51→19:34)
[2024-05-17] MEDS: PROGRAF 1 MG PO ×2 (08:51→19:34)
[2024-05-17] MEDS: TOPROL XL 12.5 MG PO (08:52)
[2024-05-17] MEDS: NSS (PRESERVATIVE FREE) 10 ML IV (08:52)
[2024-05-17] MEDS: DELTASONE 5 MG PO (08:52)
[2024-05-17] MEDS: TRICOR 48 MG PO ×2 (08:52→19:34)
[2024-05-17] MEDS: PROTONIX IV 40 MG IV (08:52)
[2024-05-17] MEDS: HEPARIN 5000 UNITS SC ×2 (08:53→23:42)
[2024-05-17] MEDS: AMARYL 2 MG PO (08:53)
[2024-05-17 08:56] LABS: % Immature Granulocytes 0.4 % (0-0.5); % Lymphocytes 13.8 % (20.5-51.1); % Monocytes 10.6 % (1.7-9.3); % Neutrophils 75.2 % (42.2-75.2); Absolute Lymphocytes 0.8 10^3/uL (1.2-3.4); Absolute Monocytes 0.6 10^3/uL (0.1-0.6); Absolute Neutrophils 4.3 10^3/uL (1.4-6.5); Hematocrit 37.3 % (39.0-52.0); Hemoglobin 12.7 g/dL (13.0-18.0); Mean Corpuscular Hgb 31.4 pg (27.0-31.0); Mean Corpuscular Volume 92.3 fL (80.0-94.0); Mean Platelet Volume 12.1 fL (7.4-10.4); Nucleated Red Blood Cells % 0 % (-); Platelet Count 106 10^3/uL (130-400); Red Blood Cell Count 4.04 10^6/uL (4.70-6.10); White Blood Cell Count 5.7 10^3/uL (4.8-10.8)
[2024-05-17 09:07] LABS: Vancomycin Random 11.4 ug/ml
[2024-05-17 09:19] LABS: Blood Urea Nitrogen 35 mg/dl (9-20); Calcium 9.1 mg/dl (8.4-10.2); Carbon Dioxide 18 mmol/L (22-30); Chloride 104 mmol/L (98-107); Estimated Creatinine Clearance 43 ml/min; Glucose 156 mg/dl (70-99); Magnesium 1.6 mg/dl (1.6-2.3); Potassium 5.1 mmol/L (3.5-5.1); Sodium 135 mmol/L (135-145); eGFR 48.25
--- NOTE | 2024-05-17 10:09 | PHA.VAN.FU ---
Vancomycin Assessment / Plan
- Assessment
Renal Function: SCR Decreasing
WBC's are: WNL
In the past 24 hrs, patient has been: Afebrile
Concomitant Antimicrobials: ceftriaxone
- Assessment - Therapeutic Drug Monitoring
Random Level: 11.4 - drawn ~21.5H after previous dose of 1000mg
- Dosing Plan
Dosing by Level: Re-dose today (Vanc 1000mg)
- Monitoring Plan
Random Level: 05/18 06
- Follow Up
Pharmacy will continue to follow.
Vancomycin Follow UP
- -
Patient Age: 74
Patient Sex: Male
Vancomycin Day #: 3
Indication: Bone And Joint
Requesting Provider: Dr. Pascual
Pertinent Antimicrobial Allergies:
NKDA
Height / Weight:
Height 5 ft 11 in
Actual Weight 70.9 kg
Pertinent Past Medical History: Renal Transplant (2004), CKD (baseline ~1.1)
- Vital Signs / Lab Results
Temp Pulse Resp BP Pulse Ox
98.6 F 88 16 118/70 97
05/17/24 07:00 05/17/24 07:00 05/17/24 07:00 05/17/24 07:00 05/17/24 07:00
Lab Results - Hematology
05/15/24 05/16/24 05/17/24
08:04 06:30 08:29
WBC 10.0 6.8 5.7
Lab Results - Chemistry
05/15/24 05/16/24 05/17/24
08:04 06:30 08:28
BUN 56 H 40 H 35 H
Creatinine 2.7 H 1.8 H 1.5 H
Estimated Creat Clear 36 43
Albumin 4.1
Microbiology Results
05/15/24 17:56 Blood Culture - Preliminary
Blood/Venous No Growth in 24 hours- Final report to follow
05/15/24 17:15 Blood Culture - Preliminary
Blood/Venous No Growth in 24 hours- Final report to follow
Therapeutic Drug Monitoring
Random Vancomycin 11.4 ug/ml 05/17/24 08:05
--- NOTE | 2024-05-17 10:57 | W.PN.HOSP.TC ---
Today's Communication/Plan
-
see A/P
Assessment / Plan
Assessment / Plan
HPI: 74-year-old male with PMH chronic pancreatitis, renal transplant, PAF on Eliquis, CABG, polycythemia vera, gout, chronic back pain under care of [facility], currently day 8 of , presented for swelling and pain in right
elbow.
Pain in right elbow started one week ago. He was on vacation 3 weeks ago and retuned one week ago. He was lifting heavy suitcases.
Pt saw [facility] the week prior and his elbow was injected with steroid. Has had worsening pain and swelling since.
Pt denies to fever/chills etc.
He endorsed to chronic nausea/vomiting/diarrhea and has abdominal pain from chronic gastritis. He us on Prilosec BID past two weeks from PCP. Followed by GI.
A/P:
# Right elbow pain and swelling, Suspected Septic R Elbow Joint
Elbow XR: Diffuse soft tissue swelling of the right elbow. No definite radiographic evidence of osteomyelitis.
cont vancomycin and ceftriaxone per ID
blood cultures x2 negative
Follow Lyme serology
MR elbow noted Large joint effusion with synovitis. No convincing MR evidence for osteomyelitis or levi septic arthritis at this time, although early septic arthritis not excluded by MRI.
IR CS for arthrocentesis
Ortho on board
holding [employer]DRINIER WIRE WEAVER Eliquis prior to procedure
Pain control with FOURDRINIER WIRE WEAVER oxycodone and IV Dilaudid
Eventual PT OT
# DANYA on CKD stage 2, suspect DANYA 2/2 dehydration
# Polycystic Kidney Disease
# s/p Renal Transplant
SCr at 2.7 -> 1.5; baseline around 1.1
cont gentle IVF
Continue tacrolimus and follow level.
continue [employer]IN[employer] WIRE WEAVER prednisone and Cellcept
# Hyponatremia, likely hypovolemic, resolved
# chronic pancreatitis
# Paroxysmal A fib
FOURDRINIER WIRE WEAVER Eliquis for stroke risk reduction.
# DMT2
SSI low
FOURDRINIER WIRE WEAVER glimepiride
# Chronic Back Pain
# DDD
Patient severely limited in terms of spine mobility due to pain / stiffness.
Cont Pain control with FOURDRIN[employer] WIRE WEAVER oxycodone and tizanidine
Followed by Pain Management as an outpatient.
DVT Prophylaxis:�FOURDRINIER WIRE WEAVER Eliquis on hold anticipating arthrocentesis, HSQ for now
Code Status:�Full
DW Ortho and ID
Anticipated Discharge: > 48 hours
Subjective/Interval History
-
Date of Service: May 17, 2024
Objective Data
-
Labs:
Laboratory Results
05/17/24 05/17/24
08:28 08:29
WBC 5.7
Hgb 12.7 L
Hct 37.3 L
Plt Count 106 L D
Sodium 135
Potassium 5.1
Chloride 104
Carbon Dioxide 18 L
BUN 35 H
Creatinine 1.5 H
Glucose 156 H
Calcium 9.1
Vital Signs:
Vital Signs
Temp Pulse Resp BP Pulse Ox
37.0 C 88 16 118/70 97
05/17/24 07:00 05/17/24 07:00 05/17/24 07:00 05/17/24 07:00 05/17/24 07:00
I&O
05/16/24 05/17/24 05/18/24
06:59 06:59 06:59
Intake Total 960 / 960 2360 / 2360
Output Total 400 / 400 1000 / 1000
Balance 560 / 560 1360 / 1360
Review of Systems
-
Musculoskeletal: Reports Joint Pain (R elbow)
Physical Exam
-
General: Well Developed, Well Nourished, No Apparent Distress, Comfortable and Conversant
HEENT: Normocephalic and Atraumatic
Respiratory: Clear to Auscultation and Non Labored Respirations; Negative Wheezes, Rales or Accessory Resp Muscle Use
Cardiac: Regular Rhythm and S1/S2
GI: Soft and Nontender
Musculoskeletal: Other (R elbow in sling)
Neuro: Awake, Alert and Oriented
Psych: Calm and Intact Judgement/Insight
Data Reviewed
-
MRI: Report Reviewed by me and Discussed with Patient
Labs: Labs Reviewed by me and Discussed with Patient
--- NOTE | 2024-05-17 11:57 | CM ---
CM reviewed chart, per chart, patient off isolation 05/18. Patient remains on IV medications. CM will continue to follow for all discharge planning needs.
Plan; home, watch for possible VN needs closer to discharge.
[2024-05-17 12:46] LABS: Glucose - Point of Care 223 mg/dl (70-99)
[2024-05-17] MEDS: VANCOCIN 200 IV (12:51)
[2024-05-17] MEDS: NOVOLOG FLEXPEN-LOW RESISTANCE 2 UNITS SC (12:51)
--- NOTE | 2024-05-17 13:05 | W.PN.ID1 ---
Date of Service
Date of Service: May 17, 2024
Today's Communication
- discussed with orthopedics and consulted IR this am for aspiration for cell count, gram stain/culture, crystals, lyme pcr
- continue vancomycin and ceftriaxone
last day of covid isolation
Assessment / Plan
Suspected Septic R Elbow Joint
DANYA on CKD - improving
Immunosuppression
S/p Renal Transplant 2004
Gout
- blood cultures x2 in progress no growth to date
- Xray without definite lesions
- MR elbow - large effusion with synovitis - no evidence of septic joint but not fully excluded via MRI
- uric acid level normal - doesnt rule out gout
- no known h/o lyme - sent serology
- discussed with orthopedics and consulted IR this am for aspiration for cell count, gram stain/culture, crystals, lyme pcr
- continue vancomycin and ceftriaxone
COVID
- remains on room air
- no therapies indicated at this time
- isolation 10 days from onset of symptoms - today is day 10 - remove from isolation tomorrow
- follow clinically
Chief Complaint
-: Other (septic joint, covid)
Subjective / Review of Systems
afebrile
bp stable
no events overnight
elbow still painful
no new complaints
Vital Signs / Physical Exam
Vital Signs
Vital Signs
Temp Pulse Resp BP Pulse Ox
97.8 F 98 16 110/69 95
05/17/24 11:00 05/17/24 11:00 05/17/24 11:00 05/17/24 11:00 05/17/24 11:00
Physical Exam
Constitutional: No Acute Distress
Cardiovascular: Regular Rate and S1/S2; Negative Murmur or Rub
Pulmonary: Clear and Symmetric; Negative Wheezes or Rales
Gastrointestinal: Soft, Non Tender, Non Distended and Normal Bowel Sounds
Extremities: Other (stable swelling of the R elbow, minimal erythema, markedly tender)
Skin: Warm and Dry; Negative Rash or Jaundice
Objective Data
Lab Data
Lab Results
05/17/24 08:29
05/17/24 08:28
Estimated Creat Clear 43 ml/min 05/17/24 08:28
Total Bilirubin 1.3 mg/dl (0.2-1.3) 05/15/24 08:04
AST 20 U/L (17-59) 05/15/24 08:04
ALT 19 U/L (0-50) 05/15/24 08:04
Alkaline Phosphatase 41 U/L (38-126) 05/15/24 08:04
Most recent labs reviewed as above
Micro Results:
05/15/24 17:56 Blood Culture - Preliminary
Blood/Venous No Growth in 24 hours- Final report to follow
05/15/24 17:15 Blood Culture - Preliminary
Blood/Venous No Growth in 24 hours- Final report to follow
[2024-05-17] MEDS: HEPARIN SC (16:06)
[2024-05-17 17:08] LABS: Glucose - Point of Care 178 mg/dl (70-99)
[2024-05-17 17:22] LABS: Body Fluid WBC 38640 /CUMM
[2024-05-17 17:25] LABS: Body Fluid Second Tech RP
[2024-05-17] MEDS: ROCEPHIN 2000 MG IV (17:44)
[2024-05-17] MEDS: STERILE WATER FOR INJECTION 20 ML IV (17:44)
[2024-05-17] MEDS: CRESTOR 20 MG PO (17:44)
[2024-05-17] MEDS: PROGRAF 0.5 MG PO (17:44)
[2024-05-17] MEDS: NSS 1000 IV (17:46)
[2024-05-17 22:36] LABS: Glucose - Point of Care 232 mg/dl (70-99)
[2024-05-18] MEDS: DILAUDID 1 MG IV ×3 (03:47→19:00)
[2024-05-18 03:55] VITALS: BP 117/66
[2024-05-18 07:24] LABS: Glucose - Point of Care 165 mg/dl (70-99)
[2024-05-18] MEDS: ROXICODONE 20 MG PO (07:29)
[2024-05-18 07:30] VITALS: BP 114/82
--- NOTE | 2024-05-18 08:17 | W.PN.HOSP.TC ---
Today's Communication/Plan
-
see A/P
Assessment / Plan
Assessment / Plan
HPI: 74-year-old male with PMH chronic pancreatitis, renal transplant, PAF on Eliquis, CABG, polycythemia vera, gout, chronic back pain under care of [facility], currently day 8 of , presented for swelling and pain in right
elbow.
Pain in right elbow started one week ago. He was on vacation 3 weeks ago and retuned one week ago. He was lifting heavy suitcases.
Pt saw [facility] the week prior and his elbow was injected with steroid. Has had worsening pain and swelling since.
Pt denies to fever/chills etc.
He endorsed to chronic nausea/vomiting/diarrhea and has abdominal pain from chronic gastritis. He us on Prilosec BID past two weeks from PCP. Followed by GI.
A/P:
# Right elbow pain and swelling, Suspected Septic R Elbow Joint
Elbow XR: Diffuse soft tissue swelling of the right elbow. No definite radiographic evidence of osteomyelitis.
cont vancomycin and ceftriaxone per ID
blood cultures x2 negative
Follow Lyme serology
MR elbow noted Large joint effusion with synovitis. No convincing MR evidence for osteomyelitis or levi septic arthritis at this time, although early septic arthritis not excluded by MRI.
s/p IR arthrocentesis R elbow 05/17, follow culture result
Ortho on board
resume HOME ENERGY INSPECTOR Eliquis
Pain control with HOME ENERGY INSPECTOR oxycodone and IV Dilaudid
PT OT eval
# DANYA on CKD stage 2, suspect DANYA 2/2 dehydration
# Polycystic Kidney Disease
# s/p Renal Transplant
SCr at 2.7 -> 1.5; baseline around 1.1
cont gentle IVF
Continue tacrolimus and follow level.
continue HOME ENERGY INSPECTOR prednisone and Cellcept
# Hyponatremia, likely hypovolemic, resolved
# chronic pancreatitis
# Paroxysmal A fib
HOME ENERGY INSPECTOR Eliquis for stroke risk reduction.
# DMT2
SSI low
HOME ENERGY INSPECTOR glimepiride
# Chronic Back Pain
# DDD
Patient severely limited in terms of spine mobility due to pain / stiffness.
Cont Pain control with HOME ENERGY INSPECTOR oxycodone and tizanidine
Followed by Pain Management as an outpatient.
DVT Prophylaxis:�resume HOME ENERGY INSPECTOR Eliquis
Code Status:�Full
Anticipated Discharge: 24 - 48 hours
Subjective/Interval History
-
Date of Service: May 18, 2024
Objective Data
-
Labs:
Laboratory Results
05/18/24
06:00
WBC Pending
Hgb Pending
Hct Pending
Plt Count Pending
Sodium Pending
Potassium Pending
Chloride Pending
Carbon Dioxide Pending
BUN Pending
Creatinine Pending
Glucose Pending
Calcium Pending
Vital Signs:
Vital Signs
Temp Pulse Resp BP Pulse Ox
36.8 C 87 22 117/66 98
05/18/24 03:55 05/18/24 03:55 05/18/24 03:55 05/18/24 03:55 05/18/24 03:55
I&O
05/17/24 05/18/24 05/19/24
06:59 06:59 06:59
Intake Total 2360 / 2360 1580 / 1580
Output Total 1000 / 1000 600 / 600
Balance 1360 / 1360 980 / 980
Review of Systems
-
Musculoskeletal: Reports Joint Pain (R elbow)
Physical Exam
-
General: Well Developed, Well Nourished, No Apparent Distress, Comfortable and Conversant
HEENT: Normocephalic and Atraumatic
Respiratory: Clear to Auscultation and Non Labored Respirations; Negative Wheezes, Rales or Accessory Resp Muscle Use
Cardiac: Regular Rhythm and S1/S2
GI: Soft and Nontender
Musculoskeletal: Other (R elbow in sling)
Neuro: Awake, Alert and Oriented
Psych: Calm and Intact Judgement/Insight
Data Reviewed
-
MRI: Report Reviewed by me and Discussed with Patient
Labs: Labs Reviewed by me and Discussed with Patient
[2024-05-18 09:27] LABS: % Eosinophils 0.6 % (0-6); % Immature Granulocytes 1.6 % (0-0.5); % Monocytes 10.7 % (1.7-9.3); % Neutrophils 69.1 % (42.2-75.2); Absolute Immature Granulocytes 0.1 10^3/uL (0-0.05); Absolute Lymphocytes 1.1 10^3/uL (1.2-3.4); Absolute Monocytes 0.7 10^3/uL (0.1-0.6); Absolute Neutrophils 4.3 10^3/uL (1.4-6.5); Hematocrit 38.3 % (39.0-52.0); Hemoglobin 12.8 g/dL (13.0-18.0); Mean Corp Hgb Conc. 33.4 g/dL (33.0-37.0); Mean Corpuscular Hgb 30.4 pg (27.0-31.0); Nucleated Red Blood Cells % 0 % (-); Red Blood Cell Count 4.21 10^6/uL (4.70-6.10); Red Cell Dist. Width 13.2 % (11.5-14.5); White Blood Cell Count 6.2 10^3/uL (4.8-10.8)
[2024-05-18 09:35] LABS: Vancomycin Random 12.4 ug/ml
[2024-05-18 09:46] LABS: Mean Platelet Volume 12.8 fL (7.4-10.4); Platelet Count 103 10^3/uL (130-400)
[2024-05-18 10:24] LABS: Blood Urea Nitrogen 37 mg/dl (9-20); Calcium 9.6 mg/dl (8.4-10.2); Carbon Dioxide 16 mmol/L (22-30); Chloride 103 mmol/L (98-107); Estimated Creatinine Clearance 43 ml/min; Glucose 184 mg/dl (70-99); Magnesium 1.5 mg/dl (1.6-2.3); Potassium 5.4 mmol/L (3.5-5.1); Sodium 134 mmol/L (135-145); eGFR 48.25
[2024-05-18] MEDS: DELTASONE 5 MG PO (11:49)
[2024-05-18] MEDS: AMARYL 2 MG PO (11:49)
[2024-05-18] MEDS: TOPROL XL 12.5 MG PO (11:49)
[2024-05-18] MEDS: PROTONIX IV 40 MG IV (11:50)
[2024-05-18] MEDS: NSS (PRESERVATIVE FREE) 10 ML IV (11:50)
[2024-05-18] MEDS: CELLCEPT 500 MG PO ×2 (11:50→20:09)
[2024-05-18] MEDS: ELIQUIS 5 MG PO ×2 (11:50→20:09)
[2024-05-18] MEDS: NOVOLOG FLEXPEN-LOW RESISTANCE 2 UNITS SC (11:51)
[2024-05-18 11:52] LABS: Glucose - Point of Care 201 mg/dl (70-99)
[2024-05-18] MEDS: NSS 1000 IV (11:54)
[2024-05-18] MEDS: NOVOLOG FLEXPEN-LOW RESISTANCE SC (11:54)
[2024-05-18 11:55] VITALS: BP 137/78
[2024-05-18] MEDS: HEPARIN SC (11:58)
[2024-05-18] MEDS: TRICOR 48 MG PO ×2 (12:03→20:12)
--- NOTE | 2024-05-18 13:23 | PHA.VAN.FU ---
Vancomycin Assessment / Plan
- Assessment
Renal Function: Stable
WBC's are: WNL
In the past 24 hrs, patient has been: Afebrile
Concomitant Antimicrobials: ceftriaxone
- Assessment - Therapeutic Drug Monitoring
Random Level: 12.4 - drawn ~20H after previous dose of 1000mg
- Dosing Plan
Dosing by Level: Re-dose today (Vanc 1000mg)
- Monitoring Plan
Random Level: 05/19 0600
- Follow Up
Pharmacy will continue to follow.
Vancomycin Follow UP
- -
Patient Age: 74
Patient Sex: Male
Vancomycin Day #: 4
Indication: Bone And Joint
Requesting Provider: Dr. Pascual
Pertinent Antimicrobial Allergies:
NKDA
Height / Weight:
Height 5 ft 11 in
Actual Weight 70.9 kg
Pertinent Past Medical History: Renal Transplant (2004), CKD (baseline ~1.1)
- Vital Signs / Lab Results
Temp Pulse Resp BP Pulse Ox
98.6 F 103 20 137/78 98
05/18/24 11:55 05/18/24 11:55 05/18/24 11:55 05/18/24 11:55 05/18/24 11:55
Lab Results - Hematology
05/16/24 05/17/24 05/18/24
06:30 08:29 08:58
WBC 6.8 5.7 6.2
Lab Results - Chemistry
05/16/24 05/17/24 05/18/24
06:30 08:28 08:58
BUN 40 H 35 H 37 H
Creatinine 1.8 H 1.5 H 1.5 H
Estimated Creat Clear 36 43 43
Microbiology Results
05/17/24 16:19 Body Fluid Culture - Preliminary
Synovial Fluid No Growth After 18-24 Hours
Gram Stain - Preliminary
05/15/24 17:56 Blood Culture - Preliminary
Blood/Venous No Growth in 48 hours- Final report to follow
05/15/24 17:15 Blood Culture - Preliminary
Blood/Venous No Growth in 48 hours- Final report to follow
Therapeutic Drug Monitoring
Random Vancomycin 12.4 ug/ml 05/18/24 08:58
--- NOTE | 2024-05-18 14:10 | CM ---
Patient seen bedside, patient reports no needs at this time. Patient upset with receiving multiple spam calls, CM offered apologizes/support to patient. Patient remains on IV antibiotics. CM will watch for PT/OT evals, will continue to follow for
all discharge planning needs.
Plan; watch for PT/OT evals for further medical needs
[2024-05-18] MEDS: VANCOCIN 200 IV (14:28)
--- NOTE | 2024-05-18 14:40 | PTOTSP ---
The patient is independent with ambulation and elevations, offering no concerns regarding mobility upon return home. No PT needs at this time, will sign off. The patient is aware our services are available if needs arise.
[2024-05-18] MEDS: PROGRAF 1 MG PO (14:58)
[2024-05-18 14:59] LABS: Lyme Antibody Screen, EIA Negative (Negative)
[2024-05-18 15:00] VITALS: BP 118/76
--- NOTE | 2024-05-18 16:29 | W.PN.ID1 ---
Date of Service
Date of Service: May 18, 2024
Today's Communication
- follow culture
- continue vancomycin and ceftriaxone
- completed isolation, stopped
Assessment / Plan
Suspected Septic R Elbow Joint
DANYA on CKD - improving
Immunosuppression
S/p Renal Transplant 2004
Gout
- blood cultures x2 in progress no growth to date
- cell count and PMN count could be septic
- MR elbow - large effusion with synovitis - no evidence of septic joint but not fully excluded via MRI
- uric acid level normal and no crystals seen
- no known h/o lyme - sent serology, pcr on synovial fluid pending
- appreciate orthopedics input
- continue vancomycin and ceftriaxone
Recent COVID infection - resolved
- completed isolation, stopped
Chief Complaint
-: Other (septic joint, covid)
Subjective / Review of Systems
afebrile
bp stable
tolerating current therapies
less pain
Vital Signs / Physical Exam
Vital Signs
Vital Signs
Temp Pulse Resp BP Pulse Ox
98.6 F 103 20 137/78 98
05/18/24 11:55 05/18/24 11:55 05/18/24 11:55 05/18/24 11:55 05/18/24 11:55
Physical Exam
Constitutional: No Acute Distress
Cardiovascular: Regular Rate and S1/S2; Negative Murmur or Rub
Pulmonary: Clear and Symmetric; Negative Wheezes or Rales
Gastrointestinal: Soft, Non Tender, Non Distended and Normal Bowel Sounds
Musculoskeletal: Other (swelling and tenderness of the R elbow, no erythema)
Skin: Warm and Dry; Negative Rash or Jaundice
Objective Data
Lab Data
Lab Results
05/18/24 08:58
05/18/24 08:58
Estimated Creat Clear 43 ml/min 05/18/24 08:58
Total Bilirubin 1.3 mg/dl (0.2-1.3) 05/15/24 08:04
AST 20 U/L (17-59) 05/15/24 08:04
ALT 19 U/L (0-50) 05/15/24 08:04
Alkaline Phosphatase 41 U/L (38-126) 05/15/24 08:04
Most recent labs reviewed.
Micro Results:
05/17/24 16:19 Body Fluid Culture - Preliminary
Synovial Fluid No Growth After 18-24 Hours
Gram Stain - Preliminary
05/15/24 17:56 Blood Culture - Preliminary
Blood/Venous No Growth in 48 hours- Final report to follow
05/15/24 17:15 Blood Culture - Preliminary
Blood/Venous No Growth in 48 hours- Final report to follow
--- NOTE | 2024-05-18 17:14 | W.PN.UPDATE ---
Update Note
Progress Note Update
Patient seen and examined at bedside. Does report elbow pain is mildly improved with mildly improved ROM. Does still complain of pain with motion of right elbow however. I had a long discussion with the patient and his regarding his symptoms
and potential diagnoses. We discussed the possiblity of both an inflammatory condition such as gout or an infectious etiology. He does report today he believes he had an injection in his elbow last week for Tennis elbow. Discussed the diagnostic
difficulty of his situation given his immunocompromised state. His WBC cell count from aspiration is not typically concerning for septic arthritis but certainly numbers could be skewed given his immunocompromised state. Also has a history of gout
after COVID in the past but crystals have been negative. He was in agreement with following cultures and seeing if anything results, although he does understand the fact he was on antibiotics prior to aspiration could confound the results.
Reassuring his exam has improved somewhat but will continue to follow clinically. He understands the risks associated with potential surgery as well as the risks of septic arthritis to skilled nursing health of joint.
Continue immobilization in sling
Will follow clinically
antibiotics per ID and primary team
Please reach out with questions or concerns.
[2024-05-18 17:26] LABS: Glucose - Point of Care 195 mg/dl (70-99)
[2024-05-18] MEDS: ZOFRAN 4 MG IV (17:55)
[2024-05-18] MEDS: NOVOLOG FLEXPEN-LOW RESISTANCE 1 UNITS SC (17:56)
[2024-05-18] MEDS: STERILE WATER FOR INJECTION 20 ML IV (18:56)
[2024-05-18] MEDS: CRESTOR 20 MG PO (18:56)
[2024-05-18] MEDS: PROGRAF 0.5 MG PO (18:56)
[2024-05-18] MEDS: ROCEPHIN 2000 MG IV (18:57)
[2024-05-18 21:01] LABS: Glucose - Point of Care 216 mg/dl (70-99)
[2024-05-18 23:40] VITALS: BP 125/66
[2024-05-19] MEDS: DILAUDID 1 MG IV ×4 (02:15→20:17)
[2024-05-19] MEDS: NSS 1000 IV (05:20)
[2024-05-19 07:24] LABS: Glucose - Point of Care 111 mg/dl (70-99)
[2024-05-19 07:28] LABS: % Eosinophils 0.3 % (0-6); % Immature Granulocytes 0.3 % (0-0.5); % Lymphocytes 26.9 % (20.5-51.1); % Monocytes 12.8 % (1.7-9.3); % Neutrophils 59.7 % (42.2-75.2); Absolute Lymphocytes 0.8 10^3/uL (1.2-3.4); Absolute Monocytes 0.4 10^3/uL (0.1-0.6); Absolute Neutrophils 1.9 10^3/uL (1.4-6.5); Hematocrit 33.3 % (39.0-52.0); Hemoglobin 11.4 g/dL (13.0-18.0); Mean Corp Hgb Conc. 34.2 g/dL (33.0-37.0); Mean Corpuscular Hgb 32.3 pg (27.0-31.0); Mean Corpuscular Volume 94.3 fL (80.0-94.0); Mean Platelet Volume 12.2 fL (7.4-10.4); Nucleated Red Blood Cells % 0 % (-); Platelet Count 115 10^3/uL (130-400); Red Blood Cell Count 3.53 10^6/uL (4.70-6.10); Red Cell Dist. Width 13.2 % (11.5-14.5); White Blood Cell Count 3.1 10^3/uL (4.8-10.8)
[2024-05-19 07:44] LABS: Vancomycin Random 13.3 ug/ml
[2024-05-19 07:49] VITALS: BP 103/59
[2024-05-19 07:54] LABS: Blood Urea Nitrogen 31 mg/dl (9-20); Calcium 9.2 mg/dl (8.4-10.2); Carbon Dioxide 21 mmol/L (22-30); Chloride 103 mmol/L (98-107); Estimated Creatinine Clearance 46 ml/min; Glucose 123 mg/dl (70-99); Potassium 5.2 mmol/L (3.5-5.1); Sodium 135 mmol/L (135-145); eGFR 52.41
[2024-05-19] MEDS: MAGNESIUM SULFATE 100 IV (08:19)
[2024-05-19] MEDS: CELLCEPT 500 MG PO ×2 (08:23→20:07)
[2024-05-19] MEDS: TOPROL XL 12.5 MG PO (08:23)
[2024-05-19] MEDS: DELTASONE 5 MG PO (08:24)
[2024-05-19] MEDS: ELIQUIS 5 MG PO ×2 (08:24→20:07)
[2024-05-19] MEDS: TRICOR 48 MG PO ×2 (08:24→20:08)
[2024-05-19] MEDS: AMARYL 2 MG PO (08:24)
[2024-05-19] MEDS: NOVOLOG FLEXPEN-LOW RESISTANCE SC (08:25)
[2024-05-19] MEDS: PROTONIX IV 40 MG IV (08:26)
[2024-05-19] MEDS: NSS (PRESERVATIVE FREE) 10 ML IV (08:26)
--- NOTE | 2024-05-19 09:57 | W.CON.NEPH ---
Consultation
-
Date/Time Consultation Requested: 05/19/24929
Date/Time Consultation Performed: 05/19/24939
Requesting Provider: Rochelle Bronson
Performing Provider: Candice Villalobos
Reason for Consultation: DANYA, s/p K txp and high Tac level
Medical History
-
Chief Complaint: Right elbow pain
History of Present Illness:
74-year-old male with PMH of DDKTP [address] Wang baseline cr 1.3-1.5, PCKD ESRD on HD prior TXP, P afib on Eliquis, MGUS, ITP, chronic pancreatitis, CABG, polycythemia vera, gout, HLD on statin, fibrate, DM on glemipride, chronic back
pain on under care of [facility] on 05/15 day of Cov, presented for swelling and pain in right elbow for 1 week with out fever. pt was taking Paxlovid and completed course SHIPPING/RECEIVING MANAGER.
He was on vacation 3 weeks ago prior onset of symptoms where he lifting heavy suit cases. Subsequently he saw Pain [facility] and his elbow was injected with steroid. since then had worsening pain and swelling. He is treated for septic arthritis of
right elbow with IV abx.
On admit his cr was 2.7 which has improved to baseline 1.4 with IVF. HIs tac level on admit was at 255, repeat was 47 yesterday. He reports not missing dose and has not taken any double dose with vomiting too. No change in tac dose recently, he has
been same dose for 20yrs. His tac currently held. Nephrology asked to assist in management of immunosuppression with high levels.
He endorsed to chronic nausea/vomiting/diarrhea and has abdominal pain from chronic gastritis. He us on Prilosec BID past two weeks from PCP, SHIPPING/RECEIVING MANAGER. currently no active GI symptoms. No Cp or sob or cough or fevers. C/o severe pain and swelling of
right elbow.
Past Medical History
1. PKD.
2. ESRD.
3. Renal transplant, donor.
4. Cardiovascular disease.
5. Atrial fibrillation.
6. ITP, PV
7. MGUS.
8. Degenerate joint disease.
9. Chronic pain.
10.Hypertension.
11.Diabetes mellitus, type 2.
12.Skin cancer.
13.Atrial fibrillation ablation.
14.Cholecystectomy.
15.Colonoscopy.
16.Epidural injection for the cervical spine.
steroid injection of right elbow SHIPPING/RECEIVING MANAGER
Past Surgical History: Other (CABG 2006, KTP 2004)
Social History
Tobacco: Non-Smoker
Alcohol: Former (quit 1 yr ago)
Living: With Family
Family History
Significant for PKD in mother, daughter.
Allergies / Home Medications
Allergy/AdvReac Type Severity Reaction Status Date / Time
No Known Allergies Allergy Verified 05/15/24 06:59
�Medication �Instructions �Recorded �Confirmed �Type
fenofibrate nanocrystallized 48 mg 48 mg PO BID High cholesterol 03/12/08 05/15/24 History
tablet (Tricor)
mycophenolate mofetil 250 mg 500 mg PO BID Transplant 03/12/08 05/15/24 History
capsule (CellCept)
tacrolimus 0.5 mg capsule, 0.5 mg PO QPM Transplant 01/01/16 05/15/24 History
immediate-release
tacrolimus 1 mg capsule, 1 mg PO BID Transplant 01/01/16 05/15/24 History
immediate-release
glimepiride 2 mg tablet 2 mg PO DAILY Diabetes 08/16/22 05/15/24 History
prednisone 5 mg tablet 5 mg PO DAILY Transplant #0 tabs 08/17/22 05/15/24 Rx
metoprolol succinate 25 mg 12.5 mg PO DAILY Blood Pressure 03/22/23 05/15/24 History
tablet,extended release 24 hr
multivitamin 1 tab PO DAILY Supplement 03/22/23 05/15/24 History
oxycodone 20 mg tablet 20 mg PO Q6HPRN PRN severe pain 05/15/24 05/15/24 History
rosuvastatin 20 mg tablet 20 mg PO QPM High Cholesterol 05/15/24 05/15/24 History
apixaban 5 mg tablet (Eliquis) 5 mg PO BID Blood Clot 05/16/24 05/15/24 History
Prevention/Tx
pantoprazole 40 mg tablet,delayed 40 mg PO DAILY GERD 05/16/24 05/15/24 History
release
Review of Systems
-
All complete 12 point ROS have been inquired and found negative other than stated in HPI
Physical Exam
Vital Signs
Vital Signs
Temp Pulse Resp BP Pulse Ox
97.9 F 88 18 103/59 98
05/19/24 07:49 05/19/24 07:49 05/19/24 07:49 05/19/24 07:49 05/19/24 07:49
Lab Results
WBC 3.1 10^3/uL (4.8-10.8) L 05/19/24 06:58
RBC 3.53 10^6/uL (4.70-6.10) L 05/19/24 06:58
Hgb 11.4 g/dL (13.0-18.0) L 05/19/24 06:58
Hct 33.3 % (39.0-52.0) L 05/19/24 06:58
Plt Count 115 10^3/uL (130-400) L 05/19/24 06:58
Sodium 135 mmol/L (135-145) 05/19/24 06:58
Potassium 5.2 mmol/L (3.5-5.1) H 05/19/24 06:58
Chloride 103 mmol/L (98-107) 05/19/24 06:58
Carbon Dioxide 21 mmol/L (22-30) L 05/19/24 06:58
BUN 31 mg/dl (9-20) H 05/19/24 06:58
Creatinine 1.4 mg/dL (0.7-1.3) H 05/19/24 06:58
eGFR 52.41 05/19/24 06:58
Glucose 123 mg/dl (70-99) H 05/19/24 06:58
Calcium 9.2 mg/dl (8.4-10.2) 05/19/24 06:58
Albumin 4.1 g/dl (3.5-5.0) 05/15/24 08:04
MRI:elbow
IMPRESSION:
Large joint effusion with synovitis. No convincing MR evidence for osteomyelitis or levi septic arthritis at this time, although early septic arthritis not excluded by MRI.
Physical Exam
General: Awake, Alert, Oriented, AOx3 and No Distress
HEENT: EOMI, Anicteric, Facial Symmetry and Neck Supple
Respiratory: Clear, Normal Excursion and Nonlabored Respirations
Cardiac: S1/S2 and Regular Rate/Rhythm
Breast: Deferred by me
Abdomen: Soft, Nontender and Nondistended
Musculoskeletal: No Cyanosis, No Edema and Other (right elbow edema and TTP)
Skin: No Rash
Neuro: Nonfocal/Grossly Intact
Psych: Mood/afflect pleasant, Insight/judgement good and Appropriate
Data Reviewed
-
Radiology: Report Reviewed by me
Labs: Labs Reviewed by me, Discussed with Physician and Discussed with Patient
Assessment/Plan
-
IMp:
Suspected Septic R Elbow Joint
DANYA on CKD stage 3-baseline cr 1.3-1.5
Tac toxicity-based on lab
DDRTx 2004
-ADPKD
-recent COVID-SHIPPING/RECEIVING MANAGER
-DM2
-chronic back pain
-PAFib
-Hyponatremia
mild hyperkalemia
chronic pancreatitis
DDD
Plan:
A/w Right elbow pain and swelling, COVID SHIPPING/RECEIVING MANAGER s/p Paxlovid
Currently treated for septic arthritis , abx per ID
DANYA-likely prerenal and Tac toxicity level 266
cr improving to baseline with IVF
Tac level repeat at 47 on 05/18, cont to hold Tac
fortunately pt with out overt clinical symp of toxicity
suspect interaction with Paxlovid is likely the reason for elevated tac level
check daily levels till it improves to therapeutic range
cont other IS meds MMF and steroid
BP are soft, on IVF-attempt to wean off soon as po intake improves
dose meds renally
monitor mild hyperkalemia with low k diet
met acidosis is improving, follow labs
improved hyponatremia with IVF suggest hypovolemia etiology
d/w primary and pt
--- NOTE | 2024-05-19 10:55 | PHA.VAN.FU ---
Vancomycin Assessment / Plan
- Assessment
Renal Function: Stable
In the past 24 hrs, patient has been: Afebrile
Concomitant Antimicrobials: ceftriaxone
- Assessment - Therapeutic Drug Monitoring
Random Level: 13.3 - drawn ~16.5H after previous dose of 1000mg
- Dosing Plan
Dosing by Level: Re-dose today (Vanc 1000mg)
- Monitoring Plan
Random Level: 05/20 06
- Follow Up
Pharmacy will continue to follow.
Vancomycin Follow UP
- -
Patient Age: 74
Patient Sex: Male
Vancomycin Day #: 5
Indication: Bone And Joint
Requesting Provider: Dr. Pascual
Pertinent Antimicrobial Allergies:
NKDA
Height / Weight:
Height 5 ft 11 in
Actual Weight 70.9 kg
Pertinent Past Medical History: Renal Transplant (2004), CKD (baseline ~1.1)
- Vital Signs / Lab Results
Temp Pulse Resp BP Pulse Ox
97.9 F 88 18 103/59 98
05/19/24 07:49 05/19/24 07:49 05/19/24 07:49 05/19/24 07:49 05/19/24 07:49
Lab Results - Hematology
05/17/24 05/18/24 05/19/24
08:29 08:58 06:58
WBC 5.7 6.2 3.1 L
Lab Results - Chemistry
05/17/24 05/18/24 05/19/24
08:28 08:58 06:58
BUN 35 H 37 H 31 H
Creatinine 1.5 H 1.5 H 1.4 H
Estimated Creat Clear 43 43 46
Microbiology Results
05/15/24 17:56 Blood Culture - Preliminary
Blood/Venous No Growth in 72 hours- Final report to follow
05/15/24 17:15 Blood Culture - Preliminary
Blood/Venous No Growth in 72 hours- Final report to follow
05/17/24 16:19 Body Fluid Culture - Preliminary
Synovial Fluid No Growth After 18-24 Hours
Gram Stain - Preliminary
Therapeutic Drug Monitoring
Random Vancomycin 13.3 ug/ml 05/19/24 06:58
[2024-05-19 11:02] LABS: Glucose - Point of Care 163 mg/dl (70-99)
--- NOTE | 2024-05-19 11:12 | W.PN.HOSP.TC ---
Today's Communication/Plan
-
see A/P
Assessment / Plan
Assessment / Plan
HPI: 74-year-old male with PMH chronic pancreatitis, renal transplant, PAF on Eliquis, CABG, polycythemia vera, gout, chronic back pain under care of [facility], currently day 8 of , presented for swelling and pain in right
elbow.
Pain in right elbow started one week ago. He was on vacation 3 weeks ago and retuned one week ago. He was lifting heavy suitcases.
Pt saw Pain and Sp[facility] the week prior and his elbow was injected with steroid. Has had worsening pain and swelling since.
Pt denies to fever/chills etc.
He endorsed to chronic nausea/vomiting/diarrhea and has abdominal pain from chronic gastritis. He us on Prilosec BID past two weeks from PCP. Followed by GI.
A/P:
# Right elbow pain and swelling, Suspected Septic R Elbow Joint
Elbow XR: Diffuse soft tissue swelling of the right elbow. No definite radiographic evidence of osteomyelitis.
cont vancomycin and ceftriaxone per ID
blood cultures x2 negative
Follow Lyme serology
MR elbow noted Large joint effusion with synovitis. No convincing MR evidence for osteomyelitis or levi septic arthritis at this time, although early septic arthritis not excluded by MRI.
s/p IR arthrocentesis R elbow 05/17, culture so far no growth
resumed CIVIL TECHNICIAN Eliquis
Pain control with CIVIL TECHNICIAN oxycodone and IV Dilaudid
PT OT eval: No PT needs at this time,
# DANYA on CKD stage 2, suspect DANYA 2/2 dehydration
# Polycystic Kidney Disease
# s/p Renal Transplant
SCr at 2.7 -> 1.4; baseline around 1.1
cont gentle IVF
tacrolimus trough noted to be elevated, will CS renal to address this
Tacrolimus on hold
continue CIVIL TECHNICIAN prednisone and Cellcept
# Hyponatremia, likely hypovolemic, resolved
# chronic pancreatitis
# Paroxysmal A fib
CIVIL TECHNICIAN Eliquis for stroke risk reduction.
# DMT2
SSI low
CIVIL TECHNICIAN glimepiride
# Chronic Back Pain
# DDD
Patient severely limited in terms of spine mobility due to pain / stiffness.
Cont Pain control with CIVIL TECHNICIAN oxycodone and tizanidine
Followed by Pain Management as an outpatient.
DVT Prophylaxis:�CIVIL TECHNICIAN Eliquis
Code Status:�Full
DW Renal and pharmacy
total time spent 51 min
Anticipated Discharge: 24 - 48 hours
Subjective/Interval History
-
Date of Service: May 19, 2024
Objective Data
-
Labs:
Laboratory Results
05/19/24
06:58
WBC 3.1 L
Hgb 11.4 L
Hct 33.3 L
Plt Count 115 L
Sodium 135
Potassium 5.2 H
Chloride 103
Carbon Dioxide 21 L
BUN 31 H
Creatinine 1.4 H
Glucose 123 H
Calcium 9.2
Vital Signs:
Vital Signs
Temp Pulse Resp BP Pulse Ox
36.6 C 88 18 103/59 98
05/19/24 07:49 05/19/24 07:49 05/19/24 07:49 05/19/24 07:49 05/19/24 07:49
I&O
05/18/24 05/19/24 05/20/24
06:59 06:59 06:59
Intake Total 1580 / 1580 1700 / 1700
Output Total 600 / 600 725 / 725
Balance 980 / 980 975 / 975
Review of Systems
-
Musculoskeletal: Reports Joint Pain (R elbow)
Physical Exam
-
General: Well Developed, Well Nourished, No Apparent Distress, Comfortable and Conversant
HEENT: Normocephalic and Atraumatic
Respiratory: Clear to Auscultation and Non Labored Respirations; Negative Wheezes, Rales or Accessory Resp Muscle Use
Cardiac: Regular Rhythm and S1/S2
GI: Soft and Nontender
Musculoskeletal: Other (R elbow swelling has improved )
Neuro: Awake, Alert and Oriented
Psych: Calm and Intact Judgement/Insight
Data Reviewed
-
MRI: Report Reviewed by me
Labs: Labs Reviewed by me
[2024-05-19] MEDS: VANCOCIN 200 IV (11:59)
[2024-05-19] MEDS: NOVOLOG FLEXPEN-LOW RESISTANCE 1 UNITS SC ×2 (12:00→17:18)
--- NOTE | 2024-05-19 14:38 | W.PN.ID1 ---
Date of Service
Date of Service: May 19, 2024
Today's Communication
Continue vancomycin and ceftriaxone pending final cx data.
Assessment / Plan
Suspected Septic R Elbow Joint
DANYA on CKD - improving
Immunosuppression
S/p Renal Transplant 2004
Gout
- blood cultures x2 in progress no growth to date
- cell count and PMN count could be septic
- MR elbow - large effusion with synovitis - no evidence of septic joint but not fully excluded via MRI
- uric acid level normal and no crystals seen
- no known h/o lyme - sent serology, pcr on synovial fluid pending
- appreciate orthopedics input
- Synovial fluid cx neg x 48h (specimen obtained on day 3 abx's).
- continue vancomycin and ceftriaxone pending final cx data.
Recent COVID infection - resolved
- completed isolation, stopped
Chief Complaint
-: Other (septic joint, covid)
Subjective / Review of Systems
Right elbow slowly improve.
Vital Signs / Physical Exam
Vital Signs
Vital Signs
Temp Pulse Resp BP Pulse Ox
97.9 F 88 18 103/59 98
05/19/24 07:49 05/19/24 07:49 05/19/24 07:49 05/19/24 07:49 05/19/24 07:49
Physical Exam
Constitutional: No Acute Distress
Gastrointestinal: Soft, Non Tender and Non Distended
Musculoskeletal: Other (Right UE 3+ edema elbow to wrist, + warmth)
Neurological: AO x 3
Objective Data
Lab Data
Lab Results
05/19/24 06:58
05/19/24 06:58
Estimated Creat Clear 46 ml/min 05/19/24 06:58
Total Bilirubin 1.3 mg/dl (0.2-1.3) 05/15/24 08:04
AST 20 U/L (17-59) 05/15/24 08:04
ALT 19 U/L (0-50) 05/15/24 08:04
Alkaline Phosphatase 41 U/L (38-126) 05/15/24 08:04
Most recent labs reviewed.
Micro Results:
05/17/24 16:19 Body Fluid Culture - Preliminary
Synovial Fluid No Growth After 48 Hours
Gram Stain - Preliminary
05/15/24 17:56 Blood Culture - Preliminary
Blood/Venous No Growth in 72 hours- Final report to follow
05/15/24 17:15 Blood Culture - Preliminary
Blood/Venous No Growth in 72 hours- Final report to follow
--- NOTE | 2024-05-19 15:15 | CM ---
CM reviewed chart, met with patient bedside. CM discussed OT recommendations of outpatient therapy, patient not agreeable at this time. Patient remains on IV antibiotics. CM will continue to follow for all discharge planning needs.
Plan; home when stable, declining outpatient OT at this time, watch for antibiotic needs.
[2024-05-19 15:26] VITALS: BP 118/64
[2024-05-19 16:14] LABS: Glucose - Point of Care 192 mg/dl (70-99)
[2024-05-19] MEDS: CRESTOR 20 MG PO (17:18)
[2024-05-19] MEDS: STERILE WATER FOR INJECTION 20 ML IV (17:18)
[2024-05-19] MEDS: ROCEPHIN 2000 MG IV (17:19)
[2024-05-19 21:35] LABS: Glucose - Point of Care 154 mg/dl (70-99)
[2024-05-19 22:13] LABS: Lyme Disease DNA by PCR Not Detected; Lyme Source Synovial fluid
[2024-05-19 23:06] VITALS: BP 118/61
[2024-05-20] MEDS: DILAUDID 1 MG IV ×4 (00:41→22:34)
[2024-05-20 07:11] LABS: % Eosinophils 0.3 % (0-6); % Immature Granulocytes 0.3 % (0-0.5); % Lymphocytes 22.2 % (20.5-51.1); % Monocytes 15.7 % (1.7-9.3); % Neutrophils 61.5 % (42.2-75.2); Absolute Lymphocytes 0.7 10^3/uL (1.2-3.4); Absolute Monocytes 0.5 10^3/uL (0.1-0.6); Absolute Neutrophils 1.9 10^3/uL (1.4-6.5); Hematocrit 33.4 % (39.0-52.0); Hemoglobin 11.4 g/dL (13.0-18.0); Mean Corp Hgb Conc. 34.1 g/dL (33.0-37.0); Mean Corpuscular Hgb 30.9 pg (27.0-31.0); Mean Corpuscular Volume 90.5 fL (80.0-94.0); Mean Platelet Volume 11.6 fL (7.4-10.4); Nucleated Red Blood Cells % 0 % (-); Platelet Count 126 10^3/uL (130-400); Red Blood Cell Count 3.69 10^6/uL (4.70-6.10); White Blood Cell Count 3.1 10^3/uL (4.8-10.8)
[2024-05-20 07:20] LABS: Blood Urea Nitrogen 27 mg/dl (9-20); Carbon Dioxide 23 mmol/L (22-30); Chloride 101 mmol/L (98-107); Estimated Creatinine Clearance 53 ml/min; Glucose 118 mg/dl (70-99); Potassium 5.2 mmol/L (3.5-5.1); Sodium 134 mmol/L (135-145); eGFR > 60.00
[2024-05-20 07:21] LABS: Vancomycin Random 14.2 ug/ml
[2024-05-20 07:27] VITALS: BP 114/79
[2024-05-20 07:47] LABS: Glucose - Point of Care 114 mg/dl (70-99)
--- NOTE | 2024-05-20 07:52 | W.PN.UPDATE ---
Update Note
Progress Note Update
Pt states he is slowly feeling better
R UE NVI
no signs of compartment syndrome
Moderate edema R elbow but can fully pronate supinate--moderate limitation of F/E arc
All cxs are neg thus far including 2 elbow and blood
Also with history of gout
Tx options discussed at length with patient
He prefers observation as he is improving
Hopefully he will continue to improve--but if worsens clinically may need to consider operative treatment
Very difficult case given all clinical information
Our service will follow
GGMD
--- NOTE | 2024-05-20 08:15 | PHA.VAN.FU ---
Vancomycin Assessment / Plan
- Assessment
Renal Function: SCR Decreasing
WBC's are: Stable
In the past 24 hrs, patient has been: Afebrile
Concomitant Antimicrobials: CEFTRIAXONE
- Assessment - Therapeutic Drug Monitoring
Random Level: 14.2
- Dosing Plan
Dosing by Level: Re-dose today (1000MG)
- Monitoring Plan
Random Level: 10/6 IN AM
- Follow Up
Pharmacy will continue to follow.
Vancomycin Follow UP
- -
Patient Age: 74
Patient Sex: Male
Vancomycin Day #: 6
Indication: Bone And Joint
Requesting Provider: Dr. Pascual
Pertinent Antimicrobial Allergies:
NKDA
Height / Weight:
Height 5 ft 11 in
Actual Weight 70.9 kg
Pertinent Past Medical History: Renal Transplant (2004), CKD (baseline ~1.1)
- Vital Signs / Lab Results
Temp Pulse Resp BP Pulse Ox
98.2 F 82 18 118/61 99
05/19/24 23:06 05/19/24 23:06 05/19/24 23:06 05/19/24 23:06 05/19/24 23:06
Lab Results - Hematology
05/17/24 05/18/24 05/19/24
08:29 08:58 06:58
WBC 5.7 6.2 3.1 L
05/20/24
06:56
WBC 3.1 L
Lab Results - Chemistry
05/17/24 05/18/24 05/19/24
08:28 08:58 06:58
BUN 35 H 37 H 31 H
Creatinine 1.5 H 1.5 H 1.4 H
Estimated Creat Clear 43 43 46
05/20/24
06:56
BUN 27 H
Creatinine 1.2
Estimated Creat Clear 53
Microbiology Results
05/15/24 17:56 Blood Culture - Preliminary
Blood/Venous No Growth in 4 days- Final report to follow
05/15/24 17:15 Blood Culture - Preliminary
Blood/Venous No Growth in 4 days- Final report to follow
05/17/24 16:19 Body Fluid Culture - Preliminary
Synovial Fluid No Growth After 48 Hours
Gram Stain - Preliminary
Therapeutic Drug Monitoring
Random Vancomycin 14.2 ug/ml 05/20/24 06:56
--- NOTE | 2024-05-20 08:43 | W.PN.HOSP.TC ---
Today's Communication/Plan
-
see A/P
Assessment / Plan
Assessment / Plan
HPI: 74-year-old male with PMH chronic pancreatitis, renal transplant, PAF on Eliquis, CABG, polycythemia vera, gout, chronic back pain under care of [facility], currently day 8 of , presented for swelling and pain in right
elbow.
Pain in right elbow started one week ago. He was on vacation 3 weeks ago and retuned one week ago. He was lifting heavy suitcases.
Pt saw Pain and Spine the week prior and his elbow was injected with steroid. Has had worsening pain and swelling since.
Pt denies to fever/chills etc.
He endorsed to chronic nausea/vomiting/diarrhea and has abdominal pain from chronic gastritis. He us on Prilosec BID past two weeks from PCP. Followed by GI.
A/P:
# Right elbow pain and swelling, Suspected Septic R Elbow Joint
Elbow XR: Diffuse soft tissue swelling of the right elbow. No definite radiographic evidence of osteomyelitis.
cont vancomycin and ceftriaxone per ID
blood cultures x2 negative, Lyme serology negative
MR elbow noted Large joint effusion with synovitis. No convincing MR evidence for osteomyelitis or levi septic arthritis at this time, although early septic arthritis not excluded by MRI.
s/p IR arthrocentesis R elbow 05/17, culture so far no growth
resumed SUBSTATION OPERATOR HELPER GENERATION Eliquis
Pain control with SUBSTATION OPERATOR HELPER GENERATION oxycodone and IV Dilaudid
PT OT eval: No PT needs at this time,
# DANYA on CKD stage 2, suspect DANYA 2/2 dehydration which has resolved
# Polycystic Kidney Disease
# s/p Renal Transplant
SCr at 2.7 -> 1.2; baseline around 1.1
s/p gentle IVF
tacrolimus level noted to be significantly elevated, initially at 266, then repeat trough on 05/18 at 47, felt likely 2/2 interaction with Paxlovid (clinically no evidence of taciolimus toxicity)
follow repeat tacrolimus trough (05/19 and 05/20)
Cont to hold Tacrolimus and monitor level
continue SUBSTATION OPERATOR HELPER GENERATION prednisone and Cellcept
# Recent COVID infection s/p Paxlovid 5 days
# Hyponatremia, likely hypovolemic, improved
# chronic pancreatitis
# Paroxysmal A fib
SUBSTATION OPERATOR HELPER GENERATION Eliquis for stroke risk reduction.
# DMT2
SSI low
SUBSTATION OPERATOR HELPER GENERATION glimepiride
# Chronic Back Pain
# DDD
Patient severely limited in terms of spine mobility due to pain / stiffness.
Cont Pain control with SUBSTATION OPERATOR HELPER GENERATION oxycodone and tizanidine
Followed by Pain Management as an outpatient.
DVT Prophylaxis:�SUBSTATION OPERATOR HELPER GENERATION Eliquis
Code Status:�Full
total time spent 51 min
Anticipated Discharge: 24 - 48 hours
Subjective/Interval History
-
Date of Service: May 20, 2024
Objective Data
-
Labs:
Laboratory Results
05/20/24
06:56
WBC 3.1 L
Hgb 11.4 L
Hct 33.4 L
Plt Count 126 L
Sodium 134 L
Potassium 5.2 H
Chloride 101
Carbon Dioxide 23
BUN 27 H
Creatinine 1.2
Glucose 118 H
Calcium 9.0
Vital Signs:
Vital Signs
Temp Pulse Resp BP Pulse Ox
36.4 C 94 16 114/79 98
05/20/24 07:27 05/20/24 07:27 05/20/24 07:27 05/20/24 07:27 05/20/24 07:27
I&O
05/19/24 05/20/24 05/21/24
06:59 06:59 06:59
Intake Total 1700 / 1700 720 / 720
Output Total 725 / 725 800 / 800
Balance 975 / 975 -80 / -80
Review of Systems
-
Musculoskeletal: Reports Joint Pain (R elbow)
Physical Exam
-
General: Well Developed, Well Nourished, No Apparent Distress, Comfortable and Conversant
HEENT: Normocephalic and Atraumatic
Respiratory: Clear to Auscultation and Non Labored Respirations; Negative Wheezes, Rales or Accessory Resp Muscle Use
Cardiac: Regular Rhythm and S1/S2
GI: Soft and Nontender
Musculoskeletal: Other (R elbow swelling has improved )
Neuro: Awake, Alert and Oriented
Psych: Calm and Intact Judgement/Insight
Data Reviewed
-
MRI: Report Reviewed by me
Labs: Labs Reviewed by me
[2024-05-20] MEDS: NOVOLOG FLEXPEN-LOW RESISTANCE SC ×2 (09:02→17:26)
[2024-05-20 09:17] LABS: Magnesium 1.8 mg/dl (1.6-2.3)
[2024-05-20] MEDS: CELLCEPT 500 MG PO ×2 (09:48→20:11)
[2024-05-20] MEDS: DELTASONE 5 MG PO (09:49)
[2024-05-20] MEDS: TRICOR 48 MG PO ×2 (09:49→20:11)
[2024-05-20] MEDS: TOPROL XL 12.5 MG PO (09:49)
[2024-05-20] MEDS: AMARYL 2 MG PO (09:49)
[2024-05-20] MEDS: ELIQUIS 5 MG PO ×2 (09:51→20:11)
[2024-05-20] MEDS: NSS (PRESERVATIVE FREE) 10 ML IV (09:51)
[2024-05-20] MEDS: PROTONIX IV 40 MG IV (09:52)
--- NOTE | 2024-05-20 09:53 | W.PN.ID1 ---
Date of Service
Date of Service: May 20, 2024
Today's Communication
Continue current antibiotics. Upper extremity elevation.
Assessment / Plan
Suspected Septic R Elbow Joint +/- forearm cellulitis
DANYA on CKD - improving
Immunosuppression
Hx Renal Transplant (2004)
Hx Gout
- blood cultures x2 NGTD
- MR elbow - large effusion with synovitis - no evidence of septic joint but not fully excluded via MRI
-Borrelia PCR on synovial fluid negative.
- Synovial fluid cx neg x 48h (cx on day 3 abx's).
- continue vancomycin and ceftriaxone pending final cx data.
Recent COVID infection - resolved
- completed isolation, stopped
����������������������������������������������������������
Chief Complaint
-: Other (Suspected (R) elbow septic joint. Recent covid.)
Subjective / Review of Systems
Patient seen and examined. Reports ongoing right arm pain from right elbow and along the forearm. Notes ongoing swelling of the forearm.
Review of Systems: No Fever
Vital Signs / Physical Exam
Vital Signs
Vital Signs
Temp Pulse Resp BP Pulse Ox
97.6 F 94 16 114/79 98
05/20/24 07:27 05/20/24 07:27 05/20/24 07:27 05/20/24 07:27 05/20/24 07:27
Physical Exam
Constitutional: No Acute Distress, Comfortable and Non-toxic
Eyes: Sclera Anicteric
Cardiovascular: S1/S2; Negative S3/S4
Gastrointestinal: Soft, Non Tender and Non Distended
Musculoskeletal: Other (Right UE 3+ edema elbow to wrist. (+) warmth. Good radial/ulnar pulses.)
Skin: Warm and Dry
Neurological: AO x 3
Objective Data
Lab Data
Lab Results
05/20/24 06:56
05/20/24 06:56
Estimated Creat Clear 53 ml/min 05/20/24 06:56
Total Bilirubin 1.3 mg/dl (0.2-1.3) 05/15/24 08:04
AST 20 U/L (17-59) 05/15/24 08:04
ALT 19 U/L (0-50) 05/15/24 08:04
Alkaline Phosphatase 41 U/L (38-126) 05/15/24 08:04
Most recent labs reviewed.
Micro Results:
05/15/24 17:56 Blood Culture - Preliminary
Blood/Venous No Growth in 4 days- Final report to follow
05/15/24 17:15 Blood Culture - Preliminary
Blood/Venous No Growth in 4 days- Final report to follow
05/17/24 16:19 Body Fluid Culture - Preliminary
Synovial Fluid No Growth After 48 Hours
Gram Stain - Preliminary
[2024-05-20] MEDS: VANCOCIN 200 IV (10:01)
[2024-05-20 11:40] LABS: Glucose - Point of Care 162 mg/dl (70-99)
[2024-05-20] MEDS: NOVOLOG FLEXPEN-LOW RESISTANCE 1 UNITS SC (12:13)
--- NOTE | 2024-05-20 13:25 | W.PN.NEPH.PH ---
Today's Communication / Plan
-
await Tac levels
Assessment/Plan
-
IMp:
Suspected Septic R Elbow Joint
JAYA on CKD stage 3-baseline cr 1.3-1.5
Tac toxicity-based on lab
DDRTx 2004
-ADPKD
-recent COVID-RACK CARRIER
-DM2
-chronic back pain
-PAFib
-Hyponatremia
mild hyperkalemia
chronic pancreatitis
DDD
Plan:
A/w Right elbow pain and swelling, COVID RACK CARRIER s/p Paxlovid
Currently treated for infection , abx per ID
JAYA-likely prerenal , cr down to 1.2 baseline and off IVF
Initial Tac 266, repeat at 47 on 05/18, cont to hold Tac , await repeat level 05/19, 05/20
fortunately pt with out overt clinical symp of toxicity
suspect interaction with Paxlovid is likely the reason for elevated tac level
check daily levels till it improves to therapeutic range
cont other IS meds MMF and steroid
BP are soft and stable
monitor mild hyperkalemia with low k diet
monitor hyponatremia
d/w primary and pt
-
-
Date of Service: May 20, 2024
CC / HPI / ROS
-
Chief Complaint:
Jaya, CKD, h/o KTP
History of Present Illness:
cr better at 1.2, k at 5.2 no change
BP soft but stable
sodium 134
Review of Systems:
improving right elbow pain and swelling but slow
no other complaints
no fever
no cp or sob
Labs
-
Labs:
WBC 3.1 10^3/uL (4.8-10.8) L 05/20/24 06:56
RBC 3.69 10^6/uL (4.70-6.10) L 05/20/24 06:56
Hgb 11.4 g/dL (13.0-18.0) L 05/20/24 06:56
Hct 33.4 % (39.0-52.0) L 05/20/24 06:56
Plt Count 126 10^3/uL (130-400) L 05/20/24 06:56
Sodium 134 mmol/L (135-145) L 05/20/24 06:56
Potassium 5.2 mmol/L (3.5-5.1) H 05/20/24 06:56
Chloride 101 mmol/L (98-107) 05/20/24 06:56
Carbon Dioxide 23 mmol/L (22-30) 05/20/24 06:56
BUN 27 mg/dl (9-20) H 05/20/24 06:56
Creatinine 1.2 mg/dL (0.7-1.3) 05/20/24 06:56
eGFR > 60.00 05/20/24 06:56
Glucose 118 mg/dl (70-99) H 05/20/24 06:56
Calcium 9.0 mg/dl (8.4-10.2) 05/20/24 06:56
Albumin 4.1 g/dl (3.5-5.0) 05/15/24 08:04
Physical Exam
-
Vital Signs:
Vital Signs
Temp Pulse Resp BP Pulse Ox
97.6 F 94 16 114/79 98
05/20/24 07:27 05/20/24 07:27 05/20/24 07:27 05/20/24 07:27 05/20/24 07:27
Cardiovascular:: Regular rate and rhythm
Respiratory:: Bilateral: CTA
Lung Excursion:: Normal
Abdomen:: Nontender and Soft
Extremity Edema:: None: Bilateral:
Courtney Catheter: No
Other Findings::
right forearm edema noted
[2024-05-20 15:05] VITALS: BP 116/69
[2024-05-20 16:59] LABS: Glucose - Point of Care 113 mg/dl (70-99)
[2024-05-20] MEDS: ROCEPHIN 2000 MG IV (17:25)
[2024-05-20] MEDS: CRESTOR 20 MG PO (17:25)
[2024-05-20] MEDS: STERILE WATER FOR INJECTION 20 ML IV (17:26)
[2024-05-20 21:18] LABS: Glucose - Point of Care 159 mg/dl (70-99)
[2024-05-20 22:54] LABS: Tacrolimus (Prograft - FK506) 29.4 ng/mL
[2024-05-20 23:00] VITALS: BP 113/63
[2024-05-21] MEDS: DILAUDID 1 MG IV ×3 (03:34→22:29)
[2024-05-21 07:00] VITALS: BP 121/65
[2024-05-21] MEDS: NOVOLOG FLEXPEN-LOW RESISTANCE SC (07:30)
[2024-05-21] MEDS: AMARYL PO (07:30)
[2024-05-21 07:31] LABS: Glucose - Point of Care 60 mg/dl (70-99)
[2024-05-21 07:33] LABS: Blood Urea Nitrogen 29 mg/dl (9-20); Calcium 9.7 mg/dl (8.4-10.2); Carbon Dioxide 24 mmol/L (22-30); Chloride 99 mmol/L (98-107); Estimated Creatinine Clearance 46 ml/min; Glucose 68 mg/dl (70-99); Magnesium 1.5 mg/dl (1.6-2.3); Potassium 4.9 mmol/L (3.5-5.1); Sodium 137 mmol/L (135-145); eGFR 52.41
[2024-05-21 07:33] LABS: Glucose - Point of Care 59 mg/dl (70-99)
[2024-05-21 07:42] LABS: Vancomycin Random 15.4 ug/ml
[2024-05-21 07:51] LABS: Glucose - Point of Care 57 mg/dl (70-99)
[2024-05-21 08:13] LABS: Glucose - Point of Care 70 mg/dl (70-99)
--- NOTE | 2024-05-21 08:23 | PHA.VAN.FU ---
Vancomycin Assessment / Plan
- Assessment
Renal Function: SCR Increasing
WBC's are: Trending Down
In the past 24 hrs, patient has been: Afebrile
- Assessment - Therapeutic Drug Monitoring
Random Level: 15.4
- Dosing Plan
Dosing by Level: Re-dose today (750MG)
- Monitoring Plan
Random Level: 10 IN AM
- Follow Up
Pharmacy will continue to follow.
Vancomycin Follow UP
- -
Patient Age: 74
Patient Sex: Male
Vancomycin Day #: 7
Indication: Bone And Joint
Requesting Provider: Dr. Pascual
Pertinent Antimicrobial Allergies:
NKDA
Height / Weight:
Height 5 ft 11 in
Actual Weight 70.9 kg
Pertinent Past Medical History: Renal Transplant (2004), CKD (baseline ~1.1)
- Vital Signs / Lab Results
Temp Pulse Resp BP Pulse Ox
98.6 F 88 18 121/65 98
05/21/24 07:00 05/21/24 07:00 05/21/24 07:00 05/21/24 07:00 05/21/24 07:00
Lab Results - Hematology
05/18/24 05/19/24 05/20/24
08:58 06:58 06:56
WBC 6.2 3.1 L 3.1 L
Lab Results - Chemistry
05/18/24 05/19/24 05/20/24
08:58 06:58 06:56
BUN 37 H 31 H 27 H
Creatinine 1.5 H 1.4 H 1.2
Estimated Creat Clear 43 46 53
05/21/24
07:02
BUN 29 H
Creatinine 1.4 H
Estimated Creat Clear 46
Microbiology Results
05/15/24 17:56 Blood Culture - Final
Blood/Venous No Growth - Final Report
05/15/24 17:15 Blood Culture - Final
Blood/Venous No Growth - Final Report
05/17/24 16:19 Body Fluid Culture - Final
Synovial Fluid No Growth After 72 Hours
Gram Stain - Final
Therapeutic Drug Monitoring
Random Vancomycin 15.4 ug/ml 05/21/24 07:02
[2024-05-21 08:25] LABS: % Eosinophils 0.4 % (0-6); % Immature Granulocytes 0.5 % (0-0.5); % Lymphocytes 13.5 % (20.5-51.1); % Monocytes 10.2 % (1.7-9.3); % Neutrophils 75.4 % (42.2-75.2); Absolute Lymphocytes 0.7 10^3/uL (1.2-3.4); Absolute Monocytes 0.6 10^3/uL (0.1-0.6); Absolute Neutrophils 4.1 10^3/uL (1.4-6.5); Hematocrit 37.5 % (39.0-52.0); Hemoglobin 12.4 g/dL (13.0-18.0); Mean Corp Hgb Conc. 33.1 g/dL (33.0-37.0); Mean Corpuscular Hgb 30.5 pg (27.0-31.0); Mean Corpuscular Volume 92.4 fL (80.0-94.0); Nucleated Red Blood Cells % 0 % (-); Platelet Count 155 10^3/uL (130-400); Red Blood Cell Count 4.06 10^6/uL (4.70-6.10); Red Cell Dist. Width 13.2 % (11.5-14.5); White Blood Cell Count 5.5 10^3/uL (4.8-10.8)
[2024-05-21] MEDS: VANCOCIN 150 IV (09:37)
[2024-05-21] MEDS: TOPROL XL 12.5 MG PO (09:41)
[2024-05-21] MEDS: ELIQUIS 5 MG PO ×2 (09:41→20:13)
[2024-05-21] MEDS: DELTASONE 5 MG PO (09:42)
[2024-05-21] MEDS: CELLCEPT 500 MG PO ×2 (09:42→20:13)
[2024-05-21] MEDS: NSS (PRESERVATIVE FREE) 10 ML IV (09:44)
[2024-05-21] MEDS: PROTONIX IV 40 MG IV (09:44)
[2024-05-21] MEDS: FLUSH (NSS) 1 FLUSH IV (09:46)
[2024-05-21] MEDS: TRICOR 48 MG PO ×2 (09:49→20:12)
--- NOTE | 2024-05-21 10:41 | W.PN.HOSP.TC ---
Today's Communication/Plan
-
see A/P
Assessment / Plan
Assessment / Plan
HPI: 74-year-old male with PMH chronic pancreatitis, renal transplant, PAF on Eliquis, CABG, polycythemia vera, gout, chronic back pain under care of [facility], currently day 8 of , presented for swelling and pain in right
elbow.
Pain in right elbow started one week ago. He was on vacation 3 weeks ago and retuned one week ago. He was lifting heavy suitcases.
Pt saw [facility] the week prior and his elbow was injected with steroid. Has had worsening pain and swelling since.
Pt denies to fever/chills etc.
He endorsed to chronic nausea/vomiting/diarrhea and has abdominal pain from chronic gastritis. He us on Prilosec BID past two weeks from PCP. Followed by GI.
A/P:
# Right elbow pain and swelling, Suspected Septic R Elbow Joint
Elbow XR: Diffuse soft tissue swelling of the right elbow. No definite radiographic evidence of osteomyelitis.
cont vancomycin and ceftriaxone per ID
blood cultures x2 negative, Lyme serology negative
MR elbow noted Large joint effusion with synovitis. No convincing MR evidence for osteomyelitis or levi septic arthritis at this time, although early septic arthritis not excluded by MRI.
s/p IR arthrocentesis R elbow 05/17, culture so far no growth
resumed INSTALLER INSPECTOR FINAL Eliquis
Pain control with INSTALLER INSPECTOR FINAL oxycodone and IV Dilaudid
PT OT eval: No PT needs at this time,
# DANYA on CKD stage 2, suspect DANYA 2/2 dehydration which has resolved
# Polycystic Kidney Disease
# s/p Renal Transplant
SCr at 2.7 -> 1.4; baseline around 1.1
s/p gentle IVF
tacrolimus level noted to be significantly elevated, initially at 266, repeat trough on 05/18 at 47, felt likely 2/2 interaction with Paxlovid (clinically no evidence of taciolimus toxicity)
follow up tacrolimus trough on 05/19 at 29
follow tacrolimus from 05/20
tacrolimus level ordered for 05/22
Cont to hold Tacrolimus and monitor level
continue INSTALLER INSPECTOR FINAL prednisone and Cellcept
Renal on board
# Recent COVID infection s/p Paxlovid 5 days
# Hyponatremia, likely hypovolemic, improved
# chronic pancreatitis
# Paroxysmal A fib
INSTALLER INSPECTOR FINAL Eliquis for stroke risk reduction.
# DMT2
SSI low
INSTALLER INSPECTOR FINAL glimepiride
# Chronic Back Pain
# DDD
Patient severely limited in terms of spine mobility due to pain / stiffness.
Cont Pain control with INSTALLER INSPECTOR FINAL oxycodone and tizanidine
Followed by Pain Management as an outpatient.
DVT Prophylaxis:�INSTALLER INSPECTOR FINAL Eliquis
Code Status:�Full
Anticipated Discharge: > 48 hours
Subjective/Interval History
-
Date of Service: May 21, 2024
Objective Data
-
Labs:
Laboratory Results
05/21/24
07:02
WBC 5.5
Hgb 12.4 L
Hct 37.5 L
Plt Count 155 D
Sodium 137
Potassium 4.9
Chloride 99
Carbon Dioxide 24
BUN 29 H
Creatinine 1.4 H
Glucose 68 L
Calcium 9.7
Vital Signs:
Vital Signs
Temp Pulse Resp BP Pulse Ox
37.0 C 88 18 121/65 98
05/21/24 07:00 05/21/24 07:00 05/21/24 07:00 05/21/24 07:00 05/21/24 07:00
I&O
05/20/24 05/21/24 05/22/24
06:59 06:59 06:59
Intake Total 720 / 720 750 / 750 150 / 150
Output Total 800 / 800
Balance -80 / -80 750 / 750 150 / 150
Review of Systems
-
Musculoskeletal: Reports Joint Pain (R elbow)
Physical Exam
-
General: Well Developed, Well Nourished, No Apparent Distress, Comfortable and Conversant
HEENT: Normocephalic and Atraumatic
Respiratory: Clear to Auscultation and Non Labored Respirations; Negative Wheezes, Rales or Accessory Resp Muscle Use
Cardiac: Regular Rhythm and S1/S2
GI: Soft and Nontender
Musculoskeletal: Other (R elbow swelling has improved )
Neuro: Awake, Alert and Oriented
Psych: Calm and Intact Judgement/Insight
Data Reviewed
-
MRI: Report Reviewed by me
Labs: Labs Reviewed by me
[2024-05-21 11:25] LABS: Glucose - Point of Care 170 mg/dl (70-99)
--- NOTE | 2024-05-21 11:29 | W.PN.ID1 ---
Date of Service
Date of Service: May 21, 2024
Today's Communication
continue abx.
Assessment / Plan
Suspected Septic R Elbow Joint +/- forearm cellulitis
DANYA on CKD - improving
Immunosuppression
Hx Renal Transplant (2004)
Hx Gout
- blood cultures x2 NGTD
- MR elbow - large effusion with synovitis - no evidence of septic joint but not fully excluded via MRI
-Borrelia PCR on synovial fluid negative.
- Synovial fluid cx neg x 48h (cx obtained on day 3 abx's).
- continue vancomycin and ceftriaxone.
Recent COVID infection - resolved
- completed isolation, stopped
����������������������������������������������������������
Chief Complaint
-: Other (Suspected (R) elbow septic joint. Recent covid.)
Subjective / Review of Systems
Patient seen and examined. Reports ongoing right elbow joint pain. Notes increased range of motion.
Review of Systems: No Fever and No Chills
Vital Signs / Physical Exam
Vital Signs
Vital Signs
Temp Pulse Resp BP Pulse Ox
98.6 F 88 18 121/65 98
05/21/24 07:00 05/21/24 07:00 05/21/24 07:00 05/21/24 07:00 05/21/24 07:00
Physical Exam
Constitutional: No Acute Distress, Comfortable and Non-toxic
Eyes: Sclera Anicteric
Pulmonary: Non Labored
Gastrointestinal: Non Distended
Musculoskeletal: Other (Right UE 3+ edema elbow to wrist. (+) warmth. Good radial/ulnar pulses.)
Skin: Warm and Dry
Neurological: AO x 3
Objective Data
Lab Data
Lab Results
05/21/24 07:02
05/21/24 07:02
Estimated Creat Clear 46 ml/min 05/21/24 07:02
Total Bilirubin 1.3 mg/dl (0.2-1.3) 05/15/24 08:04
AST 20 U/L (17-59) 05/15/24 08:04
ALT 19 U/L (0-50) 05/15/24 08:04
Alkaline Phosphatase 41 U/L (38-126) 05/15/24 08:04
Most recent labs reviewed.
Micro Results:
05/15/24 17:56 Blood Culture - Final
Blood/Venous No Growth - Final Report
05/15/24 17:15 Blood Culture - Final
Blood/Venous No Growth - Final Report
05/17/24 16:19 Body Fluid Culture - Final
Synovial Fluid No Growth After 72 Hours
Gram Stain - Final
[2024-05-21] MEDS: MAGNESIUM SULFATE 100 IV (12:21)
[2024-05-21] MEDS: AMARYL 2 MG PO (12:26)
[2024-05-21] MEDS: NOVOLOG FLEXPEN-LOW RESISTANCE 1 UNITS SC (12:27)
--- NOTE | 2024-05-21 13:43 | W.PN.UPDATE ---
Update Note
Progress Note Update
Patient seen at bedside. Reports moderate improvement in pain swelling and range of motion. is at bedside.
Patient with improved flexion extension arc compared to last several days ago. He is able to supinate approximately 60 degrees with near complete pronation
Very little warmth palpable over elbow, mild bogginess and diffuse moderate swelling
Motor and sensation grossly intact distally
74-year-old male continued right elbow pain with right elbow effusion on MRI. Cultures remain negative. Clinically he continues to improve. I did discuss both surgical nonsurgical options with him. I explained to him that the difficult clinical
picture given his history of of renal transplant with his immunocompromise status, history of gout particularly after bouts of COVID in the past. At this point he would like to continue to take a watch and wait approach. Certainly if he continues
to clinically improve would not recommend more aggressive intervention. Should symptoms worsen, he understands that surgical irrigation debridement would be a treatment option available to him. Will continue to follow clinically. Please reach out
any questions or concerns.
[2024-05-21 15:00] VITALS: BP 130/58
--- NOTE | 2024-05-21 16:26 | W.PN.NEPH.PH ---
Today's Communication / Plan
-
follow Tac level, resume med tomorrow
Assessment/Plan
-
IMp:
Suspected Septic R Elbow Joint
JAYA on CKD stage 3-baseline cr 1.3-1.5
Tac toxicity-based on lab
DDRTx 2004
-ADPKD
-recent COVID-SECRETARY RECEPTIONIST
-DM2
-chronic back pain
-PAFib
-Hyponatremia
mild hyperkalemia
chronic pancreatitis
DDD
Plan:
A/w Right elbow pain and swelling, COVID s/p Paxlovid SECRETARY RECEPTIONIST
Currently treated for infection right elbow, abx per ID
JAYA-likely prerenal , cr 1.4 baseline and off IVF
Initial Tac 266, repeat at 47 on 05/18, 21.6 on 05/20cont to hold Tac , await repeat level 05/21
resume Tac from tomorrow while awaiting levels
fortunately pt with out overt clinical symp of toxicity
suspect interaction with Paxlovid is likely the reason for elevated tac level
check daily levels till it improves to therapeutic range
cont other IS meds MMF and steroid
BP are stable
replace mg
monitor mild hyperkalemia with low k diet-improved
monitor hyponatremia-resolved
d/w pt and at bedside
-
-
Date of Service: May 21, 2024
CC / HPI / ROS
-
Chief Complaint:
Jaya, CKD, h/o KTP
History of Present Illness:
cr 1.4 baseline, k normal
BP stable, better
sodium 137 better
no fever
Review of Systems:
improving right elbow pain and swelling
no other complaints
no cp or sob
Labs
-
Labs:
WBC 5.5 10^3/uL (4.8-10.8) 05/21/24 07:02
RBC 4.06 10^6/uL (4.70-6.10) L 05/21/24 07:02
Hgb 12.4 g/dL (13.0-18.0) L 05/21/24 07:02
Hct 37.5 % (39.0-52.0) L 05/21/24 07:02
Plt Count 155 10^3/uL (130-400) D 05/21/24 07:02
Sodium 137 mmol/L (135-145) 05/21/24 07:02
Potassium 4.9 mmol/L (3.5-5.1) 05/21/24 07:02
Chloride 99 mmol/L (98-107) 05/21/24 07:02
Carbon Dioxide 24 mmol/L (22-30) 05/21/24 07:02
BUN 29 mg/dl (9-20) H 05/21/24 07:02
Creatinine 1.4 mg/dL (0.7-1.3) H 05/21/24 07:02
eGFR 52.41 05/21/24 07:02
Glucose 68 mg/dl (70-99) L 05/21/24 07:02
Calcium 9.7 mg/dl (8.4-10.2) 05/21/24 07:02
Albumin 4.1 g/dl (3.5-5.0) 05/15/24 08:04
Physical Exam
-
Vital Signs:
Vital Signs
Temp Pulse Resp BP Pulse Ox
98.5 F 88 18 130/58 98
05/21/24 15:00 05/21/24 15:00 05/21/24 15:00 05/21/24 15:00 05/21/24 15:00
Cardiovascular:: Regular rate and rhythm
Respiratory:: Bilateral: CTA
Lung Excursion:: Normal
Abdomen:: Nontender and Soft
Extremity Edema:: None: Bilateral:
Courtney Catheter: No
[2024-05-21 16:43] LABS: Glucose - Point of Care 225 mg/dl (70-99)
[2024-05-21] MEDS: STERILE WATER FOR INJECTION 20 ML IV (18:32)
[2024-05-21] MEDS: NOVOLOG FLEXPEN-LOW RESISTANCE 2 UNITS SC (18:33)
[2024-05-21] MEDS: CRESTOR 20 MG PO (18:41)
[2024-05-21] MEDS: ROCEPHIN 2000 MG IV (18:41)
[2024-05-21] MEDS: ROXICODONE 20 MG PO (20:13)
[2024-05-21 23:23] LABS: Glucose - Point of Care 166 mg/dl (70-99)
[2024-05-21 23:29] VITALS: BP 102/61
[2024-05-22 03:53] LABS: Glucose - Point of Care 129 mg/dl (70-99)
[2024-05-22 07:40] VITALS: BP 122/70
[2024-05-22 07:40] LABS: % Basophils 0.2 % (0-2); % Eosinophils 0.6 % (0-6); % Immature Granulocytes 0.2 % (0-0.5); % Lymphocytes 23.6 % (20.5-51.1); % Monocytes 7.9 % (1.7-9.3); % Neutrophils 67.5 % (42.2-75.2); Absolute Lymphocytes 1.5 10^3/uL (1.2-3.4); Absolute Monocytes 0.5 10^3/uL (0.1-0.6); Absolute Neutrophils 4.2 10^3/uL (1.4-6.5); Hematocrit 37.6 % (39.0-52.0); Hemoglobin 12.4 g/dL (13.0-18.0); Mean Corpuscular Hgb 30.2 pg (27.0-31.0); Mean Corpuscular Volume 91.7 fL (80.0-94.0); Mean Platelet Volume 11.7 fL (7.4-10.4); Nucleated Red Blood Cells % 0 % (-); Platelet Count 186 10^3/uL (130-400); Red Cell Dist. Width 13.1 % (11.5-14.5); White Blood Cell Count 6.2 10^3/uL (4.8-10.8)
[2024-05-22 07:44] LABS: Glucose - Point of Care 104 mg/dl (70-99)
[2024-05-22 07:55] LABS: Vancomycin Random 12.7 ug/ml
[2024-05-22] MEDS: NOVOLOG FLEXPEN-LOW RESISTANCE SC ×2 (08:01→12:39)
[2024-05-22 08:05] LABS: Erythrocyte Sed Rate 45 mm/hour (0-20)
[2024-05-22] MEDS: NSS (PRESERVATIVE FREE) 10 ML IV (08:25)
[2024-05-22] MEDS: ELIQUIS 5 MG PO ×2 (08:27→20:56)
[2024-05-22] MEDS: TOPROL XL 12.5 MG PO (08:28)
[2024-05-22 08:32] LABS: Blood Urea Nitrogen 25 mg/dl (9-20); Calcium 9.8 mg/dl (8.4-10.2); Carbon Dioxide 26 mmol/L (22-30); Chloride 97 mmol/L (98-107); Estimated Creatinine Clearance 49 ml/min; Glucose 113 mg/dl (70-99); Magnesium 2.1 mg/dl (1.6-2.3); Sodium 137 mmol/L (135-145); eGFR 57.29
[2024-05-22] MEDS: AMARYL 2 MG PO (08:34)
[2024-05-22] MEDS: TRICOR 48 MG PO ×2 (08:34→20:58)
[2024-05-22] MEDS: CELLCEPT 500 MG PO ×2 (08:34→20:54)
[2024-05-22] MEDS: DELTASONE 5 MG PO (08:34)
[2024-05-22] MEDS: PROTONIX IV 40 MG IV (08:35)
[2024-05-22] MEDS: PROGRAF 1 MG PO ×2 (08:35→20:55)
[2024-05-22] MEDS: ROXICODONE 20 MG PO ×2 (08:57→17:39)
--- NOTE | 2024-05-22 09:35 | W.PN.HOSP.TC ---
Today's Communication/Plan
-
see bold
Assessment / Plan
Assessment / Plan
HPI: 74-year-old male with PMH chronic pancreatitis, renal transplant, PAF on Eliquis, CABG, polycythemia vera, gout, chronic back pain under care of [facility], currently day 8 of , presented for swelling and pain in right
elbow.
Pain in right elbow started one week ago. He was on vacation 3 weeks ago and retuned one week ago. He was lifting heavy suitcases.
Pt saw [facility] the week prior and his elbow was injected with steroid. Has had worsening pain and swelling since.
Pt denies to fever/chills etc.
He endorsed to chronic nausea/vomiting/diarrhea and has abdominal pain from chronic gastritis. He us on Prilosec BID past two weeks from PCP. Followed by GI.
A/P:
# Right elbow pain and swelling, Suspected Septic R Elbow Joint
Elbow XR: Diffuse soft tissue swelling of the right elbow. No definite radiographic evidence of osteomyelitis.
Blood cultures x2 negative, Lyme serology negative
MR elbow noted Large joint effusion with synovitis. No convincing MR evidence for osteomyelitis or levi septic arthritis at this time, although early septic arthritis not excluded by MRI.
S/p IR arthrocentesis R elbow 05/17, culture so far no growth
Appreciate ID input, suspect inflammatory arthritis, less likely septic joint
ID changed Rocephin/vancomycin to ciprofloxacin and doxycycline to complete two weeks of treatment 05/15-05/28
Needs to follow-up with rheumatology outpatient
Resumed UTILITY AGENT Eliquis
Pain control with UTILITY AGENT oxycodone and IV Dilaudid
PT OT eval: No PT needs at this time,
# DANYA on CKD stage 2, suspect DANYA 2/2 dehydration which has resolved
# Polycystic Kidney Disease
# s/p Renal Transplant
SCr at 2.7 -> 1.4; baseline around 1.1
s/p gentle IVF
tacrolimus level noted to be significantly elevated, initially at 266, repeat trough on 05/18 at 47, felt likely 2/2 interaction with Paxlovid (clinically no evidence of taciolimus toxicity)
follow up tacrolimus trough on 05/19 at 29
follow tacrolimus from 05/20 - pending
tacrolimus level ordered for 05/22 - pending
Cont to hold Tacrolimus and monitor level
continue UTILITY AGENT prednisone and Cellcept
Renal on board
# Recent COVID infection s/p Paxlovid 5 days
# Hyponatremia, likely hypovolemic, improved
# chronic pancreatitis
# Paroxysmal A fib
UTILITY AGENT Eliquis for stroke risk reduction.
# DMT2
SSI low
UTILITY AGENT glimepiride
# Chronic Back Pain
# DDD
Patient severely limited in terms of spine mobility due to pain / stiffness.
Cont Pain control with UTILITY AGENT oxycodone and tizanidine
Followed by Pain Management as an outpatient.
DVT Prophylaxis:�UTILITY AGENT Eliquis
Code Status:�Full
Total time spent to see the patient on the floor, examine the patient, review data and lab results, discuss treatment plan with patient, nursing staff around 39 minutes.
Physical Exam
General: No acute distress
HEENT: Normocephalic, Atraumatic, EOMI, MMM
Respiratory: Clear to Auscultation bilaterally
Cardiac: Normal S1/S2, Regular Rate and Rhythm
GI: Soft, Nontender, Nondistended, Normal Bowel Sounds
Extremities: No Clubbing, Cyanosis
Right elbow with edema, effusion, no erythema noted
Neuro: Nonfocal/Grossly Intact
Psych: Calm, Cooperative
Derm: No Visible lesions
Anticipated Discharge: Within 24 hours
Subjective/Interval History
-
Date of Service: May 22, 2024
Patient reports that his right elbow pain is improved. No fever, no vomiting.
Objective Data
-
Labs:
Laboratory Results
05/22/24
07:27
WBC 6.2
Hgb 12.4 L
Hct 37.6 L
Plt Count 186
Sodium 137
Potassium 5.0
Chloride 97 L
Carbon Dioxide 26
BUN 25 H
Creatinine 1.3
Glucose 113 H
Calcium 9.8
Vital Signs:
Vital Signs
Temp Pulse Resp BP Pulse Ox
97.9 F 97 18 122/70 97
05/22/24 07:40 05/22/24 08:28 05/22/24 07:40 05/22/24 08:28 05/22/24 07:40
I&O
05/21/24 05/22/24 05/23/24
06:59 06:59 06:59
Intake Total 750 / 750 990 / 990
Balance 750 / 750 990 / 990
--- NOTE | 2024-05-22 10:24 | PHA.VAN.FU ---
Vancomycin Assessment / Plan
- Assessment
Renal Function: SCR Decreasing
WBC's are: WNL
In the past 24 hrs, patient has been: Afebrile
Concomitant Antimicrobials: ceftriaxone
- Assessment - Therapeutic Drug Monitoring
Random Level: 12.7 - drawn ~22H after previous dose of 750mg
- Dosing Plan
Dosing by Level: Re-dose today (Vanc 750mg)
- Monitoring Plan
Random Level: 05/23 0600
Monitoring Comments: if level stable, may consider scheduleding Vanc 750mg Q24H
- Follow Up
Pharmacy will continue to follow.
Vancomycin Follow UP
- -
Patient Age: 74
Patient Sex: Male
Vancomycin Day #: 8
Indication: Bone And Joint
Requesting Provider: Dr. Pascual
Pertinent Antimicrobial Allergies:
NKDA
Height / Weight:
Height 5 ft 11 in
Actual Weight 70.9 kg
Pertinent Past Medical History: Renal Transplant (2004), CKD (baseline ~1.1)
- Vital Signs / Lab Results
Temp Pulse Resp BP Pulse Ox
97.9 F 97 18 122/70 97
05/22/24 07:40 05/22/24 08:28 05/22/24 07:40 05/22/24 08:28 05/22/24 07:40
Lab Results - Hematology
05/20/24 05/21/24 05/22/24
06:56 07:02 07:27
WBC 3.1 L 5.5 6.2
Lab Results - Chemistry
05/20/24 05/21/24 05/22/24
06:56 07:02 07:27
BUN 27 H 29 H 25 H
Creatinine 1.2 1.4 H 1.3
Estimated Creat Clear 53 46 49
Microbiology Results
05/15/24 17:56 Blood Culture - Final
Blood/Venous No Growth - Final Report
05/15/24 17:15 Blood Culture - Final
Blood/Venous No Growth - Final Report
05/17/24 16:19 Body Fluid Culture - Final
Synovial Fluid No Growth After 72 Hours
Gram Stain - Final
Therapeutic Drug Monitoring
Random Vancomycin 12.7 ug/ml 05/22/24 07:27
--- NOTE | 2024-05-22 10:35 | W.PN.NEPH.PH ---
Today's Communication / Plan
-
follow FK
Assessment/Plan
-
IMp:
Suspected Septic R Elbow Joint
JAYA on CKD stage 3-baseline cr 1.3-1.5
Tac toxicity-based on lab
DDRTx 2004
-ADPKD
-recent COVID-SNAKER TRACTOR DRIVER
-DM2
-chronic back pain
-PAFib
-Hyponatremia
mild hyperkalemia
chronic pancreatitis
DDD
Plan:
follow BMP
follow FK levels
restarted lower dose tacro for now
abx for elbow per primary team
-
-
Date of Service: May 22, 2024
CC / HPI / ROS
-
Chief Complaint:
Jaya, CKD, h/o KTP
History of Present Illness:
cr 1.3 baseline, k normal
BP stable
sodium normal
no fever
Review of Systems:
improving right elbow pain and swelling
no other complaints
no cp or sob
Labs
-
Labs:
WBC 6.2 10^3/uL (4.8-10.8) 05/22/24 07:27
RBC 4.10 10^6/uL (4.70-6.10) L 05/22/24 07:27
Hgb 12.4 g/dL (13.0-18.0) L 05/22/24 07:27
Hct 37.6 % (39.0-52.0) L 05/22/24 07:27
Plt Count 186 10^3/uL (130-400) 05/22/24 07:27
Sodium 137 mmol/L (135-145) 05/22/24 07:27
Potassium 5.0 mmol/L (3.5-5.1) 05/22/24 07:27
Chloride 97 mmol/L (98-107) L 05/22/24 07:27
Carbon Dioxide 26 mmol/L (22-30) 05/22/24 07:27
BUN 25 mg/dl (9-20) H 05/22/24 07:27
Creatinine 1.3 mg/dL (0.7-1.3) 05/22/24 07:27
eGFR 57.29 05/22/24 07:27
Glucose 113 mg/dl (70-99) H 05/22/24 07:27
Calcium 9.8 mg/dl (8.4-10.2) 05/22/24 07:27
Albumin 4.1 g/dl (3.5-5.0) 05/15/24 08:04
Physical Exam
-
Vital Signs:
Vital Signs
Temp Pulse Resp BP Pulse Ox
97.9 F 97 18 122/70 97
05/22/24 07:40 05/22/24 08:28 05/22/24 07:40 05/22/24 08:28 05/22/24 07:40
Cardiovascular:: Regular rate and rhythm
Respiratory:: Bilateral: CTA
Lung Excursion:: Normal
Abdomen:: Nontender and Soft
Bowel Sounds:: Normal
Extremity Edema:: None: Bilateral:
[2024-05-22 12:07] VITALS: BP 110/67
--- NOTE | 2024-05-22 12:11 | PTOTSP ---
pt demonstrates ability to complete simple ADLs, use of RUE with functional tasks. pt continues to complete exercises, ROM independently. pt also reports decreased strength, endurance when using RUE. encouraged to continue completing exercises. no
further OT needs identified, will sign off.
[2024-05-22 12:16] LABS: Glucose - Point of Care 159 mg/dl (70-99)
[2024-05-22] MEDS: VANCOCIN 150 IV (12:42)
--- NOTE | 2024-05-22 14:02 | W.PN.ID1 ---
Date of Service
Date of Service: May 22, 2024
Today's Communication
- switch to ciprofloxacin and doxycycline to complete two weeks of treatment 05/15-05/28
- referral sent to rheumatology outpatient
- follow up with PCP/nephro
Assessment / Plan
Inflammatory Arthritis (RA) vs less likely septic joint
DANYA on CKD - improving
Immunosuppression
Hx Renal Transplant (2004)
Hx Gout
- h/o gout flare (vs RA) immediately post his last covid infection - hand was involved, no arthrocentesis, unclear if treated with colchicine or steroids but reporting full improvement with oral antiinflammatories.
- currently with remarkable improvement, most consistent with reactive arthritis - considered steroids however patient reporting minimal pain at this time
- blood cultures x2 NGTD
- Synovial fluid cx neg x 48h (cx obtained on day 3 abx's); cell count is inflammatory
- MR elbow - large effusion with synovitis - no evidence of septic joint
- Borrelia PCR on synovial fluid negative, serology also negative
- switch to ciprofloxacin and doxycycline to complete two weeks of treatment 05/15-05/28
- referral sent to rheumatology outpatient
- follow up with PCP/nephro
Recent COVID infection - resolved
- completed isolation, stopped
����������������������������������������������������������
Chief Complaint
-: Other (Suspected (R) elbow septic joint. Recent covid.)
Subjective / Review of Systems
afebrile
now with full ROM of the right elbow and minimal tenderness
no complaints
Vital Signs / Physical Exam
Vital Signs
Vital Signs
Temp Pulse Resp BP Pulse Ox
98.1 F 75 19 110/67 96
05/22/24 12:07 05/22/24 12:07 05/22/24 12:07 05/22/24 12:07 05/22/24 12:07
Physical Exam
Constitutional: No Acute Distress
Cardiovascular: Regular Rate and S1/S2; Negative Murmur or Rub
Pulmonary: Clear and Symmetric; Negative Wheezes or Rales
Gastrointestinal: Soft, Non Tender, Non Distended and Normal Bowel Sounds
Musculoskeletal: Other (right elbow, no swelling, full range of motion, no erythema)
Skin: Warm and Dry; Negative Rash or Jaundice
Objective Data
Lab Data
Lab Results
05/22/24 07:27
05/22/24 07:27
ESR 45 mm/hour (0-20) H 05/22/24 07:27
Estimated Creat Clear 49 ml/min 05/22/24 07:27
Total Bilirubin 1.3 mg/dl (0.2-1.3) 05/15/24 08:04
AST 20 U/L (17-59) 05/15/24 08:04
ALT 19 U/L (0-50) 05/15/24 08:04
Alkaline Phosphatase 41 U/L (38-126) 05/15/24 08:04
C-Reactive Protein 69.60 mg/L (0.0-10.00) H 05/22/24 07:27
Most recent labs reviewed.
Micro Results:
05/15/24 17:56 Blood Culture - Final
Blood/Venous No Growth - Final Report
05/15/24 17:15 Blood Culture - Final
Blood/Venous No Growth - Final Report
05/17/24 16:19 Body Fluid Culture - Final
Synovial Fluid No Growth After 72 Hours
Gram Stain - Final
[2024-05-22] MEDS: CIPRO 500 MG PO ×2 (14:09→20:56)
[2024-05-22] MEDS: VIBRAMYCIN 100 MG PO ×2 (14:09→20:56)
[2024-05-22 15:17] VITALS: BP 102/49
--- NOTE | 2024-05-22 15:30 | CM ---
CM reviewed chart, met with patient. CM discussed OT recommendations of outpatient therapy, patient not interested at this time. Patient inquiring about discharge, per nurse, patient not for discharge today. CM will continue to follow for all
discharge planning needs.
Plan; home when stable, declining outpatient therapy.
[2024-05-22 16:34] LABS: Rheumatoid Agglutinin Positive (<10 IU)
[2024-05-22 16:43] LABS: Rheumatoid Agg. Semi-quant 64 IU
[2024-05-22 17:25] LABS: Glucose - Point of Care 221 mg/dl (70-99)
[2024-05-22] MEDS: NOVOLOG FLEXPEN-LOW RESISTANCE 2 UNITS SC (17:38)
[2024-05-22] MEDS: CRESTOR 20 MG PO (17:39)
--- NOTE | 2024-05-22 17:57 | W.PN.UPDATE ---
Update Note
Progress Note Update
Patient seen at bedside. Fairly significant improvement today in range of motion, swelling and pain.
Certainly no role for surgical intervention. Would agree with outpatient follow up with rheumatology.
Please reach out with questions or concerns.
[2024-05-22 21:48] LABS: Glucose - Point of Care 108 mg/dl (70-99)
[2024-05-22 23:30] VITALS: BP 109/70
[2024-05-23 07:00] VITALS: BP 118/66
--- NOTE | 2024-05-23 07:54 | W.PN.HOSP.TC ---
Addendum entered and electronically signed by Hussain Foster MD 05/24/24 13:42:
Patient has suspected primary inflammatory arthritis.
Cellulitis ruled out.
Original Note:
Today's Communication/Plan
-
Cleared by ID and nephrology for discharge today
Assessment / Plan
Assessment / Plan
HPI: 74-year-old male with PMH chronic pancreatitis, renal transplant, PAF on Eliquis, CABG, polycythemia vera, gout, chronic back pain under care of [facility], currently day 8 of Covpr, presented for swelling and pain in right
elbow.
Pain in right elbow started one week ago. He was on vacation 3 weeks ago and retuned one week ago. He was lifting heavy suitcases.
Pt saw [facility] the week prior and his elbow was injected with steroid. Has had worsening pain and swelling since.
Pt denies to fever/chills etc.
He endorsed to chronic nausea/vomiting/diarrhea and has abdominal pain from chronic gastritis. He us on Prilosec BID past two weeks from PCP. Followed by GI.
A/P:
# Right elbow pain and swelling, Suspected inflammatory arthritis, less likely septic joint
Elbow XR: Diffuse soft tissue swelling of the right elbow. No definite radiographic evidence of osteomyelitis.
Blood cultures x2 negative, Lyme serology negative
MR elbow noted Large joint effusion with synovitis. No convincing MR evidence for osteomyelitis or levi septic arthritis at this time, although early septic arthritis not excluded by MRI.
S/p IR arthrocentesis R elbow 05/17, culture - no growth
Appreciate ID input, suspect inflammatory arthritis, less likely septic joint
S/p Rocephin/vancomycin, ID rec ciprofloxacin and doxycycline to complete two weeks of treatment 05/15-05/28
Cleared by ID and nephrology for discharge today
Needs to follow-up with rheumatology outpatient
# DANYA on CKD stage 2, suspect DANYA 2/2 dehydration which has resolved
# Polycystic Kidney Disease
# s/p Renal Transplant
SCr at 2.7 -> 1.2; baseline around 1.1
s/p gentle IVF
tacrolimus level noted to be significantly elevated, initially at 266, repeat trough on 05/18 at 47, felt likely 2/2 interaction with Paxlovid (clinically no evidence of taciolimus toxicity)
follow up tacrolimus trough on 05/19 at 29
follow tacrolimus from 05/20 - pending
tacrolimus level ordered for 05/22 - pending
continue AUDIT CLERK prednisone and Cellcept
Cleared by nephrology for discharge, nephrology recommends patient being discharged on tacrolimus 2 mg in the morning, 1.5 mg in the evening
Patient has slip for repeat blood work on Wednesday
# Recent COVID infection s/p Paxlovid 5 days
# Hyponatremia, likely hypovolemic, improved
# chronic pancreatitis
# Paroxysmal A fib
AUDIT CLERK Eliquis for stroke risk reduction.
# DMT2
SSI low
AUDIT CLERK glimepiride
# Chronic Back Pain
# DDD
Patient severely limited in terms of spine mobility due to pain / stiffness.
Cont Pain control with AUDIT CLERK oxycodone and tizanidine
Followed by Pain Management as an outpatient.
DVT Prophylaxis:�AUDIT CLERK Eliquis
Code Status:�Full
Physical Exam
General: No acute distress
HEENT: Normocephalic, Atraumatic, EOMI, MMM
Respiratory: Clear to Auscultation bilaterally
Cardiac: Normal S1/S2, Regular Rate and Rhythm
GI: Soft, Nontender, Nondistended, Normal Bowel Sounds
Extremities: No Clubbing, Cyanosis
Right elbow with edema, effusion, no erythema noted
Neuro: Nonfocal/Grossly Intact
Psych: Calm, Cooperative
Derm: No Visible lesions
Anticipated Discharge: Today
Subjective/Interval History
-
Date of Service: May 23, 2024
Patient reports improvement in his right elbow pain. No fever, no vomiting.
Objective Data
-
Labs:
Laboratory Results
05/23/24
08:38
WBC Pending
Hgb Pending
Hct Pending
Plt Count Pending
Sodium Pending
Potassium Pending
Chloride Pending
Carbon Dioxide Pending
BUN Pending
Creatinine Pending
Glucose Pending
Calcium Pending
Vital Signs:
Vital Signs
Temp Pulse Resp BP Pulse Ox
97.8 F 96 18 118/66 97
05/23/24 07:00 05/23/24 07:00 05/23/24 07:00 05/23/24 07:00 05/23/24 07:00
I&O
05/22/24 05/23/24 05/24/24
06:59 06:59 06:59
Intake Total 990 / 990 540 / 540
Balance 990 / 990 540 / 540
[2024-05-23 08:00] LABS: Glucose - Point of Care 84 mg/dl (70-99)
[2024-05-23] MEDS: NOVOLOG FLEXPEN-LOW RESISTANCE SC (08:04)
[2024-05-23] MEDS: CIPRO 500 MG PO (08:57)
[2024-05-23] MEDS: AMARYL 2 MG PO (08:57)
[2024-05-23] MEDS: CELLCEPT 500 MG PO (08:57)
[2024-05-23] MEDS: ELIQUIS 5 MG PO (08:57)
[2024-05-23] MEDS: PROGRAF 1 MG PO (08:58)
[2024-05-23] MEDS: VIBRAMYCIN 100 MG PO (08:58)
[2024-05-23] MEDS: DELTASONE 5 MG PO (08:58)
[2024-05-23] MEDS: TRICOR 48 MG PO (08:59)
[2024-05-23] MEDS: NSS (PRESERVATIVE FREE) 10 ML IV (08:59)
[2024-05-23] MEDS: PROTONIX IV 40 MG IV (08:59)
[2024-05-23 09:07] LABS: Hematocrit 37.2 % (39.0-52.0); Hemoglobin 12.2 g/dL (13.0-18.0); Mean Corp Hgb Conc. 32.8 g/dL (33.0-37.0); Mean Corpuscular Hgb 31.3 pg (27.0-31.0); Mean Corpuscular Volume 95.4 fL (80.0-94.0); Mean Platelet Volume 11.9 fL (7.4-10.4); Platelet Count 173 10^3/uL (130-400); White Blood Cell Count 3.6 10^3/uL (4.8-10.8)
[2024-05-23] MEDS: TOPROL XL 12.5 MG PO (09:08)
[2024-05-23] MEDS: ROXICODONE 20 MG PO (09:24)
[2024-05-23 09:41] LABS: Blood Urea Nitrogen 27 mg/dl (9-20); Calcium 9.4 mg/dl (8.4-10.2); Carbon Dioxide 28 mmol/L (22-30); Chloride 97 mmol/L (98-107); Estimated Creatinine Clearance 53 ml/min; Glucose 112 mg/dl (70-99); Potassium 4.8 mmol/L (3.5-5.1); Sodium 137 mmol/L (135-145); eGFR > 60.00
--- NOTE | 2024-05-23 11:23 | W.DCSUMMARY ---
Discharge Summary
Discharge Data
Date of Admission: 05/15/24
Date of Discharge: 05/23/24
-
Pending Results: No
Hospital Course
Discharge diagnosis:
Inflammatory arthritis of the right elbow
Acute kidney injury superimposed on stage II chronic kidney disease
History of renal transplant
Supratherapeutic tacrolimus level
Polycystic kidney disease
Recent coronavirus infection
Hyponatremia
Chronic pancreatitis
Paroxysmal atrial fibrillation on Eliquis
Type 2 diabetes
Chronic back pain
Degenerative disc disease
Consults: ID, orthopedic surgery, nephrology
R elbow MRI:
Large joint effusion with synovitis. No convincing MR evidence for osteomyelitis or levi septic arthritis at this time, although early septic arthritis not excluded by MRI.
Hospital course:
74-year-old male with a past medical history of chronic pancreatitis, renal transplant, PAF on Eliquis, CABG, polycythemia vera, gout, chronic back pain under care of [facility], and recent coronavirus infection status post Paxlovid
was admitted for pain and swelling in his right elbow. He did not have fever or leukocytosis. Patient was seen in conjunction with orthopedic surgery and ID. He was treated with IV vancomycin and Rocephin for possible septic arthritis. He had
arthrocentesis of his right elbow joint on 05/17/2024. Cultures were negative. Since patient's cultures were negative, ID suspects that he has inflammatory arthritis of the right elbow, less likely septic joint. ID recommends that he take
ciprofloxacin and doxycycline to complete a 2-week course.
Patient has a history of renal transplant due to polycystic kidney disease. He had acute kidney injury superimposed on stage II chronic kidney disease. He was seen in conjunction with nephrology. He received IV fluids, his creatinine normalized.
He was also found to have a supratherapeutic tacrolimus level, likely secondary to drug interaction with Paxlovid. Initial levels were 266, he did not have any evidence of toxicity. Patient's tacrolimus was held during his hospitalization. His
tacrolimus level decreased to 29.4 on 05/19/24. Nephrology recommends discharge on tacrolimus 2 mg every morning, 1.5 mg every afternoon. Patient has been provided a lab slip to get a repeat tacrolimus level on 05/26/2024.
Patient is medically stable and cleared by ID and nephrology for discharge. He needs to follow-up with his primary care doctor in 1 week, nephrology in the office, and rheumatology in the office.
Disposition: Home self-care
Discharge planning: Required 45 minutes
Discharge Plan
-
Patient Disposition: Home (Routine Discharge)
Discharge Diagnosis/Procedures: Inflammatory arthritis of the right elbow, acute kidney injury, supratherapeutic tacrolimus levels
Condition: Good
Additional Diets: Low potassium diet
Activity: As tolerated
Driving Restrictions: As prior to admission
Blood Work: Please get outpatient bloodwork on Wednesday as per nephrology.
Activity Restrictions/Additional Instructions:
Continue ciprofloxacin and doxycycline to complete two weeks of treatment through 05/28.
Nephrology recommends you take tacrolimus 2 mg in the morning, 1.5 mg in the evening.
Please get outpatient bloodwork on Wednesday as per nephrology.
Follow-up with rheumatology in the office, and your primary care doctor in 1 week.
Referrals:
Larry Paz MD [Family Provider] - in one week
Patricia Abrams MD [Active] - in three to four weeks
Prescriptions:
New
doxycycline hyclate 100 mg Capsule
100 mg PO Q12 6 Days Qty: 12 0RF
ciprofloxacin HCl 500 mg Tablet
500 mg PO BID 6 Days Qty: 12 0RF
Continued
mycophenolate mofetil [CellCept] 250 MG capsule
500 mg PO BID
Rx Instructions:
cell cept 500mg in am and 500mg pm (250mg x2)
fenofibrate nanocrystallized [Tricor] 48 MG tablet
48 mg PO BID
glimepiride 2 mg Tablet
2 mg PO DAILY
prednisone 5 MG tablet
5 mg PO DAILY Qty: 0 0RF
Rx Instructions:
resume this dosing after completion of taper prescription
multivitamin Tablet
1 tab PO DAILY
metoprolol succinate 25 mg tablet extended release 24 hr
12.5 mg PO DAILY
rosuvastatin 20 mg Tablet
20 mg PO QPM
oxycodone 20 mg Tablet
20 mg PO Q6HPRN PRN (Reason: severe pain)
pantoprazole 40 mg tablet,delayed release (DR/EC)
40 mg PO DAILY
Eliquis 5 MG tablet
5 mg PO BID
Changed
tacrolimus 1 MG capsule
2 mg PO DAILY Qty: 0 0RF
tacrolimus 0.5 MG capsule
1.5 mg PO QPM Qty: 0 0RF
Discharge Orders:
Discharge Patient (As Directed); Ordered 05/23/24
Ordered By: Hussain Foster
Discharge Date and Time
Discharge Date/Time: 05/23/24 15:11
Print Language: TURKISH
--- NOTE | 2024-05-23 11:44 | W.PN.NEPH.PH ---
Today's Communication / Plan
-
dc planning
Assessment/Plan
-
IMp:
Suspected Septic R Elbow Joint
JAYA on CKD stage 3-baseline cr 1.3-1.5
Tac toxicity-based on lab
DDRTx 2004
-ADPKD
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
-DM2
-chronic back pain
-PAFib
-Hyponatremia
mild hyperkalemia
chronic pancreatitis
DDD
Plan:
follow BMP
follow FK levels
return to origial FK dosing
abx for elbow per primary team
ok for dc and labs wednesday
-
-
Date of Service: May 23, 2024
CC / HPI / ROS
-
Chief Complaint:
Jaya, CKD, h/o KTP
History of Present Illness:
cr 1.2 baseline, k normal
BP stable
sodium normal
FK level 6 05/22
no fever
Review of Systems:
improving right elbow pain and swelling
no other complaints
no cp or sob
Labs
-
Labs:
WBC 3.6 10^3/uL (4.8-10.8) L 05/23/24 08:38
RBC 3.90 10^6/uL (4.70-6.10) L 05/23/24 08:38
Hgb 12.2 g/dL (13.0-18.0) L 05/23/24 08:38
Hct 37.2 % (39.0-52.0) L 05/23/24 08:38
Plt Count 173 10^3/uL (130-400) 05/23/24 08:38
Sodium 137 mmol/L (135-145) 05/23/24 08:38
Potassium 4.8 mmol/L (3.5-5.1) 05/23/24 08:38
Chloride 97 mmol/L (98-107) L 05/23/24 08:38
Carbon Dioxide 28 mmol/L (22-30) 05/23/24 08:38
BUN 27 mg/dl (9-20) H 05/23/24 08:38
Creatinine 1.2 mg/dL (0.7-1.3) 05/23/24 08:38
eGFR > 60.00 05/23/24 08:38
Glucose 112 mg/dl (70-99) H 05/23/24 08:38
Calcium 9.4 mg/dl (8.4-10.2) 05/23/24 08:38
Albumin 4.1 g/dl (3.5-5.0) 05/15/24 08:04
Physical Exam
-
Vital Signs:
Vital Signs
Temp Pulse Resp BP Pulse Ox
97.8 F 96 18 118/66 97
05/23/24 07:00 05/23/24 09:08 05/23/24 07:00 05/23/24 09:08 05/23/24 07:00
Cardiovascular:: Regular rate and rhythm
Respiratory:: Bilateral: CTA
Lung Excursion:: Normal
Abdomen:: Nontender and Soft
Bowel Sounds:: Normal
Extremity Edema:: +1: Bilateral: (RUE)
[2024-05-23 12:08] LABS: Glucose - Point of Care 167 mg/dl (70-99)
--- NOTE | 2024-05-23 12:21 | CM ---
Patient seen bedside, discussed plan for discharge today. Patient denies needs upon discharge, denies script for outpatient OT. IMM reviewed, signed, placed in chart. Patient reports his will provide transportation home. CM will continue to
follow for all discharge planning needs.
Plan; home no needs.
[2024-05-23] MEDS: NOVOLOG FLEXPEN-LOW RESISTANCE 1 UNITS SC (12:28)
[2024-05-23 12:33] VITALS: BP 124/62
[2024-05-23] MEDS: FLUAD (65 yr+) 2024-2025 FORMULA 0.5 ML IM (13:28)
--- NOTE | 2024-05-24 08:58 | PN.CDI ---
CDI
- -
CDI:
Physician Documentation Request
Admit Date: 05/15/24 10:17
Dear Doctor Do,
Patient presented complaining of 'Pain in right elbow started one week ago. He was on vacation 3 weeks ago and retuned one week ago. He was lifting heavy suitcases. Pt saw [facility] the week prior and his elbow was injected with steroid. Has
had worsening pain and swelling since.'
05/23 hospitalist progress note states 'Right elbow pain and swelling, Suspected inflammatory arthritis'
Pt has a history of renal transplant and Tacrolimus.
Please clarify the type of inflammatory arthritis:
Primary
Secondary
Post traumatic
Other - please specify
Use of terms such as suspected, likely, concern for, or probable (associated with a specific diagnosis that is being evaluated, monitored, or treated as if it exists) are acceptable and can be coded in the inpatient setting, when documented at the
time of discharge.
Thank you,
Laurie Hawkins RN, BSN
CDI Specialist
tiger text
Please use your independent medical judgment in providing your response.
--- NOTE | 2024-05-24 09:13 | PN.CDI ---
CDI
- -
CDI:
Physician Documentation Request
Admit Date: 05/15/24 10:17
Dear Doctor Do,
The diagnosis of Cellulitis was documented on 05/15 in ED chart and H&P, but is not consistently noted in subsequent documentation.
Please clarify the following:
____ - Cellulitis was present on admission and is now resolved.
____ - Cellulitis was ruled out
____ - Cellulitis is still a likely, suspected, probable diagnosis
____ - Other
Use of terms such as suspected, likely, concern for, or probable (associated with a specific diagnosis that is being evaluated, monitored, or treated as if it exists) are acceptable and can be coded in the inpatient setting, when documented at the
time of discharge.
Thank you,
Laurie Hawkins RN, BSN
CDI Specialist
tiger text
Please use your independent medical judgment in providing your response.
[2024-05-25 02:03] LABS: CCP Antibody IgG/IgA 3 Units (0-19)
== END 2024-05-23 15:11 | disposition home or self-care (01) | DRG 546 ==
LOC: 4 WEST ACU 10:17
PROVIDERS: Internal Medicine Infectious Disease; Radiology Vascular & Interventional Radiology; Registered Nurse; Specialist; ADMITTING PHYSICIAN Internal Medicine; ATTENDING PHYSICIAN Family Medicine; CONSULT PHYSICIAN Internal Medicine; CONSULT PHYSICIAN Orthopaedic Surgery; EMERGENCY PHYSICIAN Emergency Medicine; FAMILY PHYSICIAN Internal Medicine; OTHER PHYSICIAN Student in an Organized Health Care Education/Training Program
PROC: 0R9L3ZZ Drainage of Right Elbow Joint, Percutaneous Approach (ICD-10-PCS; 2024-05-17)
DX: M05.721 Rheumatoid arthritis with rheumatoid factor of right elbow without organ or systems involvement (principal); E87.1 Hypo-osmolality and hyponatremia; N17.9 Acute kidney failure, unspecified; T86.19 Other complication of kidney transplant; K86.1 Other chronic pancreatitis; Q61.2 Polycystic kidney, adult type; N18.2 Chronic kidney disease, stage 2 (mild); M00.9 Pyogenic arthritis, unspecified; Y83.0 Surgical operation with transplant of whole organ as the cause of abnormal reaction of the patient, or of later complication, without mention of misadventure at the time of the procedure; E86.1 Hypovolemia; Z79.01 Long term (current) use of anticoagulants; I48.0 Paroxysmal atrial fibrillation; E11.22 Type 2 diabetes mellitus with diabetic chronic kidney disease; M19.021 Primary osteoarthritis, right elbow
CPT/HCPCS: 20606; 73080; 73221; 80048; 80053; 80197; 80202; 82962; 83036; 83735; 84550; 85025; 85027; 85652; 86140; 86200; 86430; 86431; 86618; 87015; 87040; 87070; 87205; 87476; 89051; 89060; 90662; 96365; 96375; 97110; 97161; 97166; 97530; 99285; G0008

== ENCOUNTER → 2024-05-26 07:16 | Outpatient (REF) | payer MEDICARE, OTHER, SELFPAY ==
[2024-05-26 10:23] LABS: Blood Urea Nitrogen 42 mg/dl (9-20); Calcium 9.8 mg/dl (8.4-10.2); Carbon Dioxide 27 mmol/L (22-30); Chloride 99 mmol/L (98-107); Glucose 106 mg/dl (70-99); Potassium 5.5 mmol/L (3.5-5.1); Sodium 138 mmol/L (135-145); eGFR 38.77
== END ==
LOC: REG 07:16
PROVIDERS: ATTENDING PHYSICIAN Specialist; FAMILY PHYSICIAN Internal Medicine
DX: I10 Essential (primary) hypertension (principal); E78.2 Mixed hyperlipidemia; E78.5 Hyperlipidemia, unspecified; Z94.0 Kidney transplant status
CPT/HCPCS: 36415; 80048; 80197

== ENCOUNTER 2024-06-02 15:24 | Inpatient (IN) | payer MEDICARE, OTHER, SELFPAY ==
[2024-06-02] VITALS (20 sets, daily range): BP systolic 87–137; BP diastolic 58–92; BMI 21.7
--- NOTE | 2024-06-02 11:16 | ED.GENMED ---
History of Present Illness
<Shankar Lake MD, Resident - Last Filed: 06/02/24 14:25>
General
Chief Complaint: Musculo-Skeletal Complaint
Source: patient, records and family
Time Seen by Provider: 06/02/24 11:11
Travel History
Have you traveled to any high risk areas for coronavirus over the past 14 days?: No
Have you had any contact with someone who has COVID-19?: No
Do you have any symptoms of coronavirus? Fever > 100 degrees, chills, cough, shortness of breath, sore throat, loss of taste or smell, muscle aches, or headache?: No
History of Present Illness
History of Present Illness:
Sukhjinder Dee, 74-year-old male status-post renal transplant on prednisone, tacrolimus and mycophenolate, history of suspected gout, paroxysmal atrial fibrillation on apixaban, and recent hospitalization for septic vs. inflammatory right elbow
arthritis, has had progressive right wrist swelling, erythema, pain, tenderness and limited range of motion for the past 3-4 days. He was admitted with a similar presentation in his right elbow from 05-15-24 to 05-23-24; infectious work-up was
unremarkable but he was treated empirically with 2 weeks of antibiotics, which he completed 5 days ago. Outpatient rheumatology consultation was recommended to get evaluated for inflammatory causes of his symptoms. He went to the clinic today since
he developed this new swelling, and was recommended to go to the emergency for further care. Denies fever, night sweats, chills, fatigue or weakness. No recent changes to medications or to his health. Of note, he has had a similar flare of right
wrist arthritis in early 2022, which was suspected to be gout but he was never formally diagnosed.
Past History
<Shankar Lake MD, Resident - Last Filed: 06/02/24 14:25>
Past History
ED Past Medical History: Arrthythmia (paroxysmal afib), CAD, HTN, Hypercholesterolemia, IA, Other (thrombocytopenia, polycythemia vera.), Other (DVT) and Other
ED Past Surgical History: Cardiac (CABG 2006) and Other (renal transplant 2004)
Patient has exhibited threatening behavior?: No
PSI?: No
Social History
Tobacco: Non-smoker
Alcohol: Chronic alcoholic (states he no longer drinks)
Personal:
Living: with family
Review of Systems
<Shankar Lake MD, Resident - Last Filed: 06/02/24 14:25>
Review of Systems
All Other Systems: ROS reviewed and negative except as documented in HPI and ROS
Phy Exam
<Shankar Lake MD, Resident - Last Filed: 06/02/24 14:25>
General Physical Exam
General Presentation: well appearing and no apparent distress
General Skin: warm and dry
General Habitus: normal
General Mental: alert
General Hydration: appears well hydrated
ENT Exam
ENT Exam: EOMI, pharynx normal, neck supple and normocephalic
Eye Exam
Eye Exam: PERRL, cornea clear and conjunctiva normal
Cardiovascular Exam
Cardiovascular Exam: regular rate/rhythm, no edema, no murmur and normal peripheral pulses
Pulmonary Exam
Pulmonary Exam: lungs clear, no respiratory distress, no rales, no crackles, no rhonchi, no stridor, no wheezing and no cough
Gastrointestinal Exam
Gastrointestinal Exam: normal bowel sounds, non tender, soft, no organomegaly, no pulsatile mass and non distended
Neurological Exam
Neurological Exam: alert, oriented x3, no motor deficits and speech normal
Musculoskeletal Exam
Musculoskeletal Exam: other (right wrist tenderness, erythema, swelling; limited active and passive range of motion from pain; unremarkable rest of the RUE exam)
Skin Exam
Skin Exam: normal color, warm/dry, no rash and no petechia
Psychiatric Exam
Psychiatric Exam: normal mood/affect
Course
<Shankar Lake MD, Resident - Last Filed: 06/02/24 14:25>
Orders/Labs/Results
Orders:
Orders
06/02/24 11:40
CR Wrist - Right Min 3 Views Urgent
Comment:
Reason For Exam: right wrist pain
06/02/24 11:41
Body Fluid Cell Count Urgent
What is the Body Fluid: joint
Comment: with DIFF
Body Fluid Crystals Urgent
What is the Body Fluid: joint
Body Fluid Glucose Urgent
Fluid Source: Other
Other Source: wrist
Gram Stain Stat
NATO Source: Joint
Specimen Description:
06/02/24 11:48
HYDROmorphone [Dilaudid] 0.5 mg IV NOW STA
06/02/24 11:59
CRP [C-Reactive Protein] Urgent
Complete Blood Count/With Diff Urgent
Comprehensive Metabolic Panel Urgent
ESR [Erythrocyte Sed Rate] Urgent
Uric Acid Urgent
06/02/24 12:35
Fentanyl Citrate/Pf [Sublimaze] 100 mcg IV NOW STA
Midazolam HCl [Versed] 1 mg IV NOW STA
06/02/24 13:57
Fluid Culture with Gram Stain Urgent
NATO Source: Joint Fluid
Specimen Description:
Date Specimen was Collected: 06/02/24
Time Specimen was Collected: 13:55
06/02/24 14:04
Blood Culture Urgent
NATO Source: Blood/Venous
Specimen Description:
06/02/24 14:13
Lactic Acid Urgent
0.9% Sodium Chloride 250 ml [Nss] 250 ml IV BOLUS
CefTRIAXone [Rocephin] 2,000 mg IV NOW STA
Vancomycin [Vancocin] 1,500 mg 0.9% Sodium Chloride [Nss] 20 ml 0.9% Sodium Chloride 250 ml [Nss] 250 ml IV NOW
06/02/24 14:21
INFECTIOUS DISEASE CONSULT Urgent
Consulting Provider: Tonia Pascual
Was physician already notified: Yes
06/02/24 14:34
Blood Culture Urgent
NATO Source: Blood/Venous
Specimen Description:
06/02/24 14:42
HYDROmorphone [Dilaudid] 1 mg IV NOW STA
06/02/24 14:57
Admit/Transfer Patient As Directed
Co-Sign Provider:
Level of Care: Inpatient admission
Assign to:: Telemetry
Physician / Group: Virginia Chamberlain
Diagnosis: Gout
Reason for Telemetry: Arrhythmia
Date to Stop Telemetry: 06/05/24
Time to Stop Telemetry: 11:00
Reason for Hospitalization: Gout
Expected length of stay greater than two midnights?: Yes
ELOS- Estimated Length of Stay in days: 3
I certify the patient meets the requirements for IP care: Yes
PRN Pain Medication Management As Directed
May give lesser potent ordered pain med per pt: Yes
preference::
Protocol:: Medication orders for pain may be administered in a
manner that supports deferring to patient preference
when the pt is:
- Requesting an ordered lesser potent pain medication.
Least to most potent pain medications are defined
as: acetaminophen < NSAID < tramadol < opioids
(morphine, oxycodone, hydromorphone).
- Requesting a lesser dose of the same medication IF
ORDERED.
- Requesting a less intrusive route of administration
if both routes are prescribed by the provider (PO <
IV).
06/02/24 15:00
Code Status As Directed
Resuscitation Status: Full Code
06/02/24 15:17
Consult Interventional Radiology [IRAD CONSULT] Routine
Consulting Provider: Alec Willoughby
Was physician already notified: Yes
Reason for Consult/Procedure: right wrist aspiration - septic joint
Acknowledgement that appropriate orders are entered: Yes
06/05/24 11:00
DC Protocol for Telemetry ONCE
Abnormal Lab Results
06/02/24
11:59
WBC 3.7 L 10^3/uL
(4.8-10.8)
RBC 3.85 L 10^6/uL
(4.70-6.10)
Hgb 11.7 L g/dL
(13.0-18.0)
Hct 36.1 L %
(39.0-52.0)
MCHC 32.4 L g/dL
(33.0-37.0)
MPV 11.6 H fL
(7.4-10.4)
Absolute Lymphs (auto) 0.8 L 10^3/uL
(1.2-3.4)
ESR 28 H mm/hour
(0-20)
BUN 53 H mg/dl
(9-20)
Creatinine 1.6 H mg/dL
(0.7-1.3)
Glucose 133 H mg/dl
(70-99)
C-Reactive Protein 32.10 H mg/L
(0.0-10.00)
Total Protein 5.9 L g/dl
(6.3-8.2)
06/02/24 11:59
06/02/24 11:59
Vital Signs
Initial and Last Documented VS:
Initial Vital Signs
Temp Pulse Resp BP Pulse Ox
36.6 C 92 20 113/62 100
06/02/24 10:57 06/02/24 10:57 06/02/24 10:57 06/02/24 10:57 06/02/24 10:57
Last Documented Vital Signs
Temp Pulse Resp BP Pulse Ox
36.6 C 79 12 103/72 98
06/02/24 10:57 06/02/24 14:00 06/02/24 14:00 06/02/24 14:00 06/02/24 14:00
<Devan Martin MD - Last Filed: 06/02/24 15:42>
Orders/Labs/Results
Orders:
Orders
06/02/24 11:40
CR Wrist - Right Min 3 Views Urgent
Comment:
Reason For Exam: right wrist pain
06/02/24 11:41
Body Fluid Cell Count Urgent
What is the Body Fluid: joint
Comment: with DIFF
Body Fluid Crystals Urgent
What is the Body Fluid: joint
Body Fluid Glucose Urgent
Fluid Source: Other
Other Source: wrist
Gram Stain Stat
NATO Source: Joint
Specimen Description:
06/02/24 11:48
HYDROmorphone [Dilaudid] 0.5 mg IV NOW STA
06/02/24 11:59
CRP [C-Reactive Protein] Urgent
Complete Blood Count/With Diff Urgent
Comprehensive Metabolic Panel Urgent
ESR [Erythrocyte Sed Rate] Urgent
Uric Acid Urgent
06/02/24 12:35
Fentanyl Citrate/Pf [Sublimaze] 100 mcg IV NOW STA
Midazolam HCl [Versed] 1 mg IV NOW STA
06/02/24 13:57
Fluid Culture with Gram Stain Urgent
NATO Source: Joint Fluid
Specimen Description:
Date Specimen was Collected: 06/02/24
Time Specimen was Collected: 13:55
06/02/24 14:04
Blood Culture Urgent
NATO Source: Blood/Venous
Specimen Description:
06/02/24 14:13
Lactic Acid Urgent
0.9% Sodium Chloride 250 ml [Nss] 250 ml IV BOLUS
CefTRIAXone [Rocephin] 2,000 mg IV NOW STA
Vancomycin [Vancocin] 1,500 mg 0.9% Sodium Chloride [Nss] 20 ml 0.9% Sodium Chloride 250 ml [Nss] 250 ml IV NOW
06/02/24 14:21
INFECTIOUS DISEASE CONSULT Urgent
Consulting Provider: Tonia Pascual
Was physician already notified: Yes
06/02/24 14:34
Blood Culture Urgent
NATO Source: Blood/Venous
Specimen Description:
06/02/24 14:42
HYDROmorphone [Dilaudid] 1 mg IV NOW STA
06/02/24 14:57
Admit/Transfer Patient As Directed
Co-Sign Provider:
Level of Care: Inpatient admission
Assign to:: Telemetry
Physician / Group: Virginia Chamberlain
Diagnosis: Gout
Reason for Telemetry: Arrhythmia
Date to Stop Telemetry: 06/05/24
Time to Stop Telemetry: 11:00
Reason for Hospitalization: Gout
Expected length of stay greater than two midnights?: Yes
ELOS- Estimated Length of Stay in days: 3
I certify the patient meets the requirements for IP care: Yes
PRN Pain Medication Management As Directed
May give lesser potent ordered pain med per pt: Yes
preference::
Protocol:: Medication orders for pain may be administered in a
manner that supports deferring to patient preference
when the pt is:
- Requesting an ordered lesser potent pain medication.
Least to most potent pain medications are defined
as: acetaminophen < NSAID < tramadol < opioids
(morphine, oxycodone, hydromorphone).
- Requesting a lesser dose of the same medication IF
ORDERED.
- Requesting a less intrusive route of administration
if both routes are prescribed by the provider (PO <
IV).
06/02/24 15:00
Code Status As Directed
Resuscitation Status: Full Code
06/02/24 15:17
Consult Interventional Radiology [IRAD CONSULT] Routine
Consulting Provider: Alec Willoughby
Was physician already notified: Yes
Reason for Consult/Procedure: right wrist aspiration - septic joint
Acknowledgement that appropriate orders are entered: Yes
06/05/24 11:00
DC Protocol for Telemetry ONCE
Abnormal Lab Results
06/02/24
11:59
WBC 3.7 L 10^3/uL
(4.8-10.8)
RBC 3.85 L 10^6/uL
(4.70-6.10)
Hgb 11.7 L g/dL
(13.0-18.0)
Hct 36.1 L %
(39.0-52.0)
MCHC 32.4 L g/dL
(33.0-37.0)
MPV 11.6 H fL
(7.4-10.4)
Absolute Lymphs (auto) 0.8 L 10^3/uL
(1.2-3.4)
ESR 28 H mm/hour
(0-20)
BUN 53 H mg/dl
(9-20)
Creatinine 1.6 H mg/dL
(0.7-1.3)
Glucose 133 H mg/dl
(70-99)
C-Reactive Protein 32.10 H mg/L
(0.0-10.00)
Total Protein 5.9 L g/dl
(6.3-8.2)
06/02/24 11:59
06/02/24 11:59
Vital Signs
Initial and Last Documented VS:
Initial Vital Signs
Temp Pulse Resp BP Pulse Ox
36.6 C 92 20 113/62 100
06/02/24 10:57 06/02/24 10:57 06/02/24 10:57 06/02/24 10:57 06/02/24 10:57
Last Documented Vital Signs
Temp Pulse Resp BP Pulse Ox
36.6 C 79 12 103/72 98
06/02/24 10:57 06/02/24 14:00 06/02/24 14:00 06/02/24 14:00 06/02/24 14:00
Procedures
<Devan Martin MD - Last Filed: 06/02/24 15:42>
Incision/Drainage/Joint Aspiration
Right Wrist:
Anethesia: 1% Lidocaine
Preparation: cleaned with Betadine
Type of procedure: aspiration
How much fluid was obtained?: scant amount
Fluid description: blood tinged
Treatment: antibiotics started and bandaid applied
<Shankar Lake MD, Resident - Last Filed: 06/02/24 14:25>
MDM/Problems Addressed
Differential Diagnosis Includes:
septic arthritis; gouty arthritis; rheumatoid arthritis; SLE; cellulitis
MDM/Problems Addressed:
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 Attempted aspiration but unable to yield enough fluid for diagnostic purposes. Discussed the
case with infectious disease; recommended admission considering his immunosuppression and recent supratherapeutic immunosuppression status.
<Shankar Lake MD, Resident - Last Filed: 06/02/24 14:25>
*Critical Care Note
Total Time (30-74mins, 75-104mins- exclusive of procedures): Not Applicable
ED Attending Note
<Shankar Lake MD, Resident - Last Filed: 06/02/24 14:25>
-
Portions of this chart may have been created with voice recognition software.� Occasional wrong word or��sound alike� substitutions may have occurred due to the inherent limitations of voice recognition software.
<Devan Martin MD - Last Filed: 06/02/24 15:42>
ED Attending Note
Patient seen and examined by attending physician: Yes
I performed a history and physical exam of patient and discussed management with resident, I reviewed resident's note and agree with documented findings and plan of care.: Yes
ED Attending Note:
I have seen and evaluated the patient with a [id number] encounter. I have spoken to the resident and involved in the medical history, the physical exam, medical decision making.
Evaluation and management service: agree unless noted differently below.
Results interpretation: agree unless noted differently below.
Focused HPI: 74-year-old male with past medical history as documented notable for ESRD status posttransplant presents to the emergency room referred by rheumatology for right wrist pain and redness. Patient was notably admitted 05/15/2024 until
05/23/2024 for infectious versus inflammatory arthritis of the right elbow. He had arthrocentesis and Gram stain and culture were negative. Nevertheless he was treated with a course of antibiotics and he was seen by infectious disease during his
admission. He finished his antibiotic course 2 days ago and he says that around that time he began having increasing pain and redness in the right wrist and it has progressed to the point that he cannot move his wrist without severe pain. He saw
the duralumin metalworker today and was referred to the ER for further assessment. Denies fevers or chills. Denies any trauma.
Physical exam: Awake alert oriented x 3. Vitals normal�notably afebrile. On exam of his right upper extremity he has joint effusion, tenderness, redness of the right elbow, no redness or tenderness of the right forearm; on exam of his right wrist
he has significant erythema across the entire dorsum of the wrist and extends to the dorsum of the hand stops at about the level of the knuckles; entire area is very warm, intensely tender to the touch. Any attempts at passive range of motion of
the wrist causes exquisite pain. He does have a good strong right radial pulse.
Medical Decision Makin-year-old male with recent admission for septic versus inflammatory arthritis who is on chronic immunosuppressive therapy for a kidney transplant presents to the ER for evaluation of redness, swelling, intense pain in the
right wrist. Vitals and exam as above. Labs were sent off including a CBC and a CMP, ESR and CRP that she has no leukocytosis but inflammatory markers are elevated. X-ray of the wrist shows arthritis and signs consistent with crystal deposition
disease in the wrist�suggestive at least of inflammatory arthritis/gout. We attempted arthrocentesis but unfortunately could only get a few drops of blood-tinged fluid from the joint. Lab was able to accept this for culture but could not run cell
counts or crystal analysis. Resident discussed this with infectious disease, will draw blood cultures, cover with empiric antibiotics, admit to the hospital service.
Discharge Plan
Departure
Patient Disposition: Admit
Date of Disposition: 06/02/24
Time of Disposition: 14:11
Presentation/result/management discussed w/ accepting MD/DO: Hospitalist
Patient with high blood pressure during this ER visit?: Yes
Discharge Problem:
Pain and swelling of right wrist
Interventions
Interventions:
*Risk Screen - Suicide Last Done: 06/02/24 11:45
*General Assessment Last Done: 06/02/24 11:45
*Neglect/Abuse Screening Last Done: 06/02/24 11:45
*ED COVID-19 Vaccine History Last Done: 06/02/24 10:57
ED-Musculoskeletal Assessment Last Done: 06/02/24 11:45
[2024-06-02] MEDS: DILAUDID 0.5 MG IV (11:59)
[2024-06-02 12:16] LABS: % Basophils 0.3 % (0-2); % Eosinophils 0.5 % (0-6); % Immature Granulocytes 0.3 % (0-0.5); % Lymphocytes 20.7 % (20.5-51.1); % Monocytes 8.6 % (1.7-9.3); % Neutrophils 69.6 % (42.2-75.2); Absolute Lymphocytes 0.8 10^3/uL (1.2-3.4); Absolute Monocytes 0.3 10^3/uL (0.1-0.6); Absolute Neutrophils 2.6 10^3/uL (1.4-6.5); Hematocrit 36.1 % (39.0-52.0); Hemoglobin 11.7 g/dL (13.0-18.0); Mean Corp Hgb Conc. 32.4 g/dL (33.0-37.0); Mean Corpuscular Hgb 30.4 pg (27.0-31.0); Mean Corpuscular Volume 93.8 fL (80.0-94.0); Mean Platelet Volume 11.6 fL (7.4-10.4); Nucleated Red Blood Cells % 0 % (-); Platelet Count 165 10^3/uL (130-400); Red Blood Cell Count 3.85 10^6/uL (4.70-6.10); Red Cell Dist. Width 13.4 % (11.5-14.5); White Blood Cell Count 3.7 10^3/uL (4.8-10.8)
[2024-06-02 12:45] LABS: ALT (SGPT) 21 U/L (0-50); AST (SGOT) 31 U/L (17-59); Albumin 3.7 g/dl (3.5-5.0); Alkaline Phosphatase 42 U/L (38-126); Blood Urea Nitrogen 53 mg/dl (9-20); Calcium 9.5 mg/dl (8.4-10.2); Carbon Dioxide 25 mmol/L (22-30); Chloride 99 mmol/L (98-107); Glucose 133 mg/dl (70-99); Potassium 4.3 mmol/L (3.5-5.1); Sodium 136 mmol/L (135-145); Total Bilirubin 0.6 mg/dl (0.2-1.3); Total Protein 5.9 g/dl (6.3-8.2); Uric Acid 5.4 mg/dl (3.5-8.5); eGFR 44.65
[2024-06-02] MEDS: VERSED 1 MG IV (13:26)
[2024-06-02] MEDS: SUBLIMAZE 100 MCG IV (13:28)
[2024-06-02 13:36] LABS: Erythrocyte Sed Rate 28 mm/hour (0-20)
--- NOTE | 2024-06-02 14:22 | HPS.HSE ---
Family Physician
-
Family Physician: Richard Paz
Chief Complaint
-
Right elbow pain
History of Present Illness
Patient is a 74-year old male with past medical history of chronic pancreatitis, renal transplant, PAF on Eliquis, CABG, gout, chronic back pain, presented for swelling and pain in right elbow. Patient presented for evaluations following 4 days of
significant pain to right wrist and hand. Patient recent hospitalization for right elbow edema and pain for septic vs. inflammatory arthritis. Patient states symptoms completely resolved following hospitalization and onset of current symptoms
developed 4 days ago and progressively got worse. Patient presents in significant discomfort to right wrist and hand.
Medical History
Past Medical History
Past Medical History: Reports Other
Additional Past Medical History:
chronic pancreatitis
renal transplant
PAF on Eliquis
HTn
CAD
CABG
polycythemia vera
gout
chronic back pain under care of [facility]
Past Surgical History: Reports Other
Additional Past Surgical History:
CABG 2006
Renal transplant 2004
Social History
Tobacco: Non-smoker
Alcohol: None
Drug: None
Personal:
Living: With Family
Employment: Retired
Family History
Family History: Not pertinent
Allergies / Home Medications
Allergies reflects when Allergies were last updated in [facility].
Home Medications with original date entered in [facility]
Allergy/Medication List:
Allergies
Allergy/AdvReac Type Severity Reaction Status Date / Time
No Known Allergies Allergy Verified 06/02/24 11:03
Home Medications Table - record
�Medication �Instructions �Recorded �Confirmed
fenofibrate nanocrystallized 48 mg 48 mg PO BID High cholesterol 03/12/08 06/02/24
tablet (Tricor)
mycophenolate mofetil 250 mg 500 mg PO BID Transplant 03/12/08 06/02/24
capsule (CellCept)
glimepiride 2 mg tablet 2 mg PO DAILY Diabetes 08/16/22 06/02/24
prednisone 5 mg tablet 5 mg PO DAILY Transplant #0 tabs 08/17/22 06/02/24
metoprolol succinate 25 mg 12.5 mg PO DAILY Blood Pressure 03/22/23 06/02/24
tablet,extended release 24 hr
multivitamin 1 tab PO DAILY Supplement 03/22/23 06/02/24
oxycodone 20 mg tablet 20 mg PO Q6H 05/15/24 06/02/24
rosuvastatin 20 mg tablet 20 mg PO QPM High Cholesterol 05/15/24 06/02/24
apixaban 5 mg tablet (Eliquis) 5 mg PO BID Blood Clot 05/16/24 06/02/24
Prevention/Tx
tacrolimus 0.5 mg capsule, 1.5 mg (3 x 0.5 mg) PO QPM 05/23/24 06/02/24
immediate-release Transplant, take in PM #0 caps
tacrolimus 1 mg capsule, 2 mg (2 x 1 mg) PO DAILY 05/23/24 06/02/24
immediate-release Transplant, take in AM #0 caps
sennosides 8.6 mg tablet (senna) 17.2 mg PO BIDPRN PRN CONSTIPATION 06/02/24 06/02/24
Review of Systems
-
History Source: Patient and Family
Constitutional: Reports No Symptoms
EENT: Reports No Symptoms
Respiratory: Reports No Symptoms
Cardiac: Reports No Symptoms
Abdomen/GI: Reports No Symptoms
: Reports No Symptoms
Musculoskeletal: Reports Joint Pain (right wrist and hand), Joint Swelling (right wrist and hand) and Edema (right wrist and hand)
Skin: Reports No Symptoms
Neurological: Reports No Symptoms
Endocrine: Reports No Symptoms
Hematologic/Lymphatic: Reports No Symptoms
Psych: Reports No Symptoms
Physical Exam
Vital Signs
Vital Signs
Temp Pulse Resp BP Pulse Ox
97.9 F 79 12 103/72 98
06/02/24 10:57 06/02/24 14:00 06/02/24 14:00 06/02/24 14:00 06/02/24 14:00
Physical Exam
General: Well Developed, Well Nourished, No Apparent Distress and Pain
HEENT: NormoCephalic, Moist mucous membranes, Atraumatic, Nose Appears Normal and Ears Appear Normal
Respiratory: Clear; No Wheezes, Rales, Rhonchi or Crackles
Cardiac: S1/S2 and Regular Rhythm; No Murmur, Rub or Gallop
Breast: Deferred by me
GI: Soft, Non Tender, Non Distended and Normal Bowel Sounds; No Organomegaly
Rectal: Deferred by Provider
Genito-urinary: Deferred by me
Musculoskeletal: No Clubbing, No Cyanosis, No Edema and Normal Gait & Station
Skin: Warm, Dry and IV/Catheter Site; No Rash
Neuro: Awake, Alert, AO x 3 and Nonfocal/grossly intact
Hematologic/Lymphatic: No Lymphadenopathy
Psych: Calm and Intact Judgment/Insight
Laboratory Results
-
06/02/24 11:59
06/02/24 11:59
Laboratory Results
Total Bilirubin 0.6 mg/dl (0.2-1.3) 06/02/24 11:59
AST 31 U/L (17-59) 06/02/24 11:59
ALT 21 U/L (0-50) 06/02/24 11:59
Alkaline Phosphatase 42 U/L (38-126) 06/02/24 11:59
Data Reviewed
-
Diagnostic Radiology: Report Reviewed by me
Lab Data: Labs Reviewed by me
Impression/Plan
-
IMPRESSION/PLAN:
#Gout vs. inflammatory vs. septic arthritis
- wrist x-ray: 1. 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 2. Mild osteoarthritis in the radiocarpal and scaphotrapezial joints. 3. 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
pyrophosphate deposition (CPPD) disease).
- Consult ID for recommendations
- Consult IR for arthrocentesis
- Dilaudid PRN for pain regimen
- Hold Eliquis for arthrocentesis
- ID recommendations
- IV Vanco, Ceftriaxone
- blood cultures
#DANYA/Polycystic Kidney Disease
#s/p kidney transplant 2004
#DANYA
- Cr 1.6
- continue tacrolimus, tricor, cellcept
#PAF
#CABG
- hold Eliquis for IR
- continue metoprolol succinate
#DM
- hold glipizide
- accuchecks AC & HS
- SSI
#chronic back pain
Full Code
DVT Px: Sq Hep
--- NOTE | 2024-06-02 14:56 | CON.ID ---
Consultation
-
Date/Time Consultation Requested: 06/02/24 14:21
Date/Time Consultation Performed: 06/02/24 14:57
Requesting Provider: Dr Lake
Performing Provider: Dr Pascual
Reason for Consultation: septic arthritis vs reactive arthritis
Chief Complaint / Past History
Chief Complaint
hand swelling
History of Present Illness
Mr Dee is a 74 year old male with history of renal transplant 2004 (tacrolimus, MMF and prednisone), chronic pancreatitis, alcohol use disorder, gout who first presented here 05/15 for right elbow pain and swelling x 1 week. Had a recent bout of
covid treated by PCP with paxlovid, then later with remarkable swelling of the right elbow. No fevers or chills at that time. Empirically started on vancomycin/ceftriaxone 05/15. Arthrocentesis could not be preformed until 05/17 at that time wbc
were 38K with 96% PMNs and no crystals body fluid culture was negative, lyme PCR negativeblood cultures x 2 were negative, patient was planned to complete two weeks of ciprofloxacin and doxycycline 05/15-05/28. He was seen in follow up by
rheumatology who noted new joint effusion of the right wrist, it was so painful that patient was pacing around the room unable to sit still for arthrocentesis, Rheumatology Dr Gomez called me and I recommended evaluation in the ER to see if
arthrocentesis might be possible with some anxiolytics and pain medications. Still no fevers or chills.
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
for assistance with management.
Past History
Additional Past Medical History:
Arrthythmia (paroxysmal afib), CAD, HTN, Hypercholesterolemia, HI, Other (thrombocytopenia, polycythemia vera) and Other (DVT)
Additional Past Surgical History:
(Cardiac (CABG 2006) and Other (renal transplant 2004))
Allergy History:
No Known Allergies Allergy (Verified 06/02/24 11:03)
Medications Reviewed: Yes
Social History
Tobacco: Non-Smoker
Alcohol: Former
Drug: None
Family History
Family History: Not Pertinent
Review of Systems
Review of Systems
General: Negative Fever or Chills
All systems: All other systems were reviewed and were negative
Vital Signs
Temp Pulse Resp BP Pulse Ox
97.9 F 79 12 103/72 98
06/02/24 10:57 06/02/24 14:00 06/02/24 14:00 06/02/24 14:00 06/02/24 14:00
Physical Exam
Physical Exam
Constitutional: Acutely Ill (diaphoretic, restless, agitated) and Chronically Ill
Cardiovascular: Regular Rate and S1/S2; Negative Murmur or Rub
Pulmonary: Clear and Symmetric; Negative Wheezes, Rales or Rhonchi
Gastrointestinal: Soft, Non Tender, Non Distended and Normal Bowel Sounds
Extremities: Other (right wrist mild swelling, mild erythema, tender, )
Skin: Warm and Dry; Negative Rash or Jaundice
Lab / Diagnostic Study Results
06/02/24 11:59
06/02/24 11:59
Abs Immat Gran (auto) 0.0 10^3/uL (0-0.05) 06/02/24 11:59
Absolute Neuts (auto) 2.6 10^3/uL (1.4-6.5) 06/02/24 11:59
Absolute Lymphs (auto) 0.8 10^3/uL (1.2-3.4) L 06/02/24 11:59
Absolute Monos (auto) 0.3 10^3/uL (0.1-0.6) 06/02/24 11:59
Absolute Basos (auto) 0.0 10^3/uL (0-0.2) 06/02/24 11:59
Immature Gran % 0.3 % (0-0.5) 06/02/24 11:59
Neutrophils % 69.6 % (42.2-75.2) 06/02/24 11:59
Lymphocytes % 20.7 % (20.5-51.1) 06/02/24 11:59
Monocytes % 8.6 % (1.7-9.3) 06/02/24 11:59
Eosinophils % 0.5 % (0-6) 06/02/24 11:59
Basophils % 0.3 % (0-2) 06/02/24 11:59
ESR 28 mm/hour (0-20) H 06/02/24 11:59
C-Reactive Protein 32.10 mg/L (0.0-10.00) H 06/02/24 11:59
Microbiology Results
Micro:
06/02/24 13:57 Body Fluid Culture - Pending
Joint Fluid Gram Stain - Final
Assessment / Plan
Migratory Arthrtisi Suspected Pseudogout vs HADD
RT 2004
Immunosuppression
- IR consulted for arthrocentesis, - cell count, crystals, culture - however no fluid seen on US - septic joint effectively ruled out
- lyme PCR recently negative as was serology; lyme arthritis typically presents late and unlikely to have a false negative on serology; no further lyme testing required at this time
- blood cultures x2 in progress
- no need for antibiotics - stopped
- patient appears to be in withdrawal; note that he takes oxycodone 20 mg 5x daily (states that he wakes up in the middle of the night and takes it) hasnt had any today - shivering, anxious, sweating, had 0.5 of dilaudid followed by 1.0 of dilaudid
several hours later - notified admitting team, PA and
- follow up with PCP, suggest follow up with pain management
Care Review
Plan reviewed with: Physician (Dr Lake - immunosuppression; Dr Chamberlain - suspected withdrawal)
--- NOTE | 2024-06-02 15:35 | W.PN.UPDATE ---
Update Note
Progress Note Update
This is an addendum to the H&P written by Bailee Gaston on 06/02/2024.� Patient seen and examined independently with SALES SERVICE MANAGER.
74-year-old male past medical history of polycystic kidney disease status post renal transplant on immunosuppressants, gout, paroxysmal atrial fibrillation on Eliquis, CAD status post CABG, hypertension, hypercholesteremia, septic versus
inflammatory right elbow arthritis, polycythemia vera, DVT, chronic pancreatitis, presenting with right wrist erythema, pain and tenderness and decreased range of motion for the past few days.
Recent admission from 05/15-05/23 for inflammatory arthritis of right elbow status post IR arthrocentesis with negative culture growth and negative for crystals.� Patient was treated with 2 weeks of ciprofloxacin/doxycycline with complete improvement
of his right elbow.
Labs unremarkable apart from leukopenia.� Creatinine 1.6 which appears to be DANYA which has not recovered from previous hospitalization during which time there was concern for tacrolimus toxicity.� Repeat tacrolimus level pending.� X-ray of right
wrist shows severe arthritis, crystal deposition in the wrist.
Patient likely has gout of right wrist, with need to rule out septic arthritis.� Arthrocentesis was attempted by ER but unsuccessful.� ID was consulted and recommended blood cultures, vancomycin/ceftriaxone.� IR consulted for arthrocentesis.�
Holding Eliquis for arthrocentesis.�
Continue to monitor DANYA and follow tacrolimus level.�
[2024-06-02] MEDS: DILAUDID 1 MG IV ×2 (15:53→17:43)
[2024-06-02] MEDS: ROCEPHIN 2000 MG IV (15:53)
[2024-06-02] MEDS: NSS 250 IV (15:54)
--- NOTE | 2024-06-02 16:59 | IR.POSTOP ---
[facility] Post Procedure Note
-
Description of Findings:
Ultrasound performed on the right wrist demonstrated no joint effusion. There was hypoechoic tissue immediately superficial to the radiocarpal joint that is suspicious for synovitis. Given absence of significant fluid, no arthrocentesis was
performed.
[2024-06-02 17:19] LABS: Glucose - Point of Care 153 mg/dl (70-99)
[2024-06-02] MEDS: NOVOLOG FLEXPEN-LOW RESISTANCE 1 UNITS SC (18:13)
[2024-06-02] MEDS: PROGRAF 1.5 MG PO (18:14)
[2024-06-02] MEDS: ROXICODONE 20 MG PO ×2 (18:14→23:19)
--- NOTE | 2024-06-02 18:19 | PTCARENOTE ---
Pt admitted from the ED into room 424, ambulated from stretcher to bed with standby assistance. Pt c/o severe pain in his R wrist, PRN dilaudid given - see OCT. Oriented pt to room and plan of care. Call baltazar within reach.
[2024-06-02] MEDS: CRESTOR PO (18:41)
[2024-06-02] MEDS: HEPARIN 5000 UNITS SC (20:33)
[2024-06-02] MEDS: CELLCEPT 500 MG PO (20:34)
[2024-06-02 21:22] LABS: Glucose - Point of Care 155 mg/dl (70-99)
[2024-06-02 22:20] LABS: Lactic Acid 0.6 mmol/L (0.7-2.0)
[2024-06-03 03:42] VITALS: BP 118/70
[2024-06-03 04:33] VITALS: BMI 21.0
[2024-06-03] MEDS: ROXICODONE 20 MG PO ×3 (05:46→17:50)
[2024-06-03 07:35] VITALS: BP 125/81
[2024-06-03 08:11] LABS: Glucose - Point of Care 83 mg/dl (70-99)
[2024-06-03] MEDS: DELTASONE 40 MG PO (08:19)
[2024-06-03] MEDS: PROGRAF 2 MG PO (08:19)
[2024-06-03] MEDS: CELLCEPT 500 MG PO ×2 (08:19→19:49)
[2024-06-03] MEDS: THERAGRAN 1 TABLET PO (08:19)
[2024-06-03] MEDS: TRICOR 48 MG PO (08:19)
[2024-06-03] MEDS: HEPARIN 5000 UNITS SC (08:19)
[2024-06-03] MEDS: TOPROL XL 12.5 MG PO (08:20)
[2024-06-03] MEDS: NOVOLOG FLEXPEN-LOW RESISTANCE SC (08:22)
[2024-06-03 08:27] LABS: Hematocrit 33.2 % (39.0-52.0); Mean Corp Hgb Conc. 33.1 g/dL (33.0-37.0); Mean Corpuscular Hgb 31.2 pg (27.0-31.0); Mean Corpuscular Volume 94.1 fL (80.0-94.0); Mean Platelet Volume 12.7 fL (7.4-10.4); Platelet Count 144 10^3/uL (130-400); Red Blood Cell Count 3.53 10^6/uL (4.70-6.10); Red Cell Dist. Width 13.3 % (11.5-14.5); White Blood Cell Count 4.8 10^3/uL (4.8-10.8)
[2024-06-03] MEDS: DILAUDID 1 MG IV ×2 (08:42→19:38)
[2024-06-03 09:12] LABS: Blood Urea Nitrogen 31 mg/dl (9-20); Carbon Dioxide 28 mmol/L (22-30); Chloride 101 mmol/L (98-107); Estimated Creatinine Clearance 50 ml/min; Glucose 85 mg/dl (70-99); Potassium 5.5 mmol/L (3.5-5.1); Sodium 137 mmol/L (135-145); eGFR > 60.00
[2024-06-03 11:00] VITALS: BP 119/72
[2024-06-03 12:03] LABS: Glucose - Point of Care 193 mg/dl (70-99)
[2024-06-03] MEDS: NOVOLOG FLEXPEN-LOW RESISTANCE 1 UNITS SC (12:41)
--- NOTE | 2024-06-03 13:17 | CM ---
Initial assessment completed with pt at bedside.
Pt is a 74yr old male admitted with possible Gout.
At baseline, pt lives with his in a plit level home that is 2ste to family room and 3 additional dex to rest of the house.
Pt is indep at baseline and driving.
Pt has no equip or hx of VN/SNF
Pt has other medical issues including kidney transplant and heart issues.
PCP; Richard Paz
Pharm; [address]
PLAN; dc to home with no anticipated needs identified.
--- NOTE | 2024-06-03 14:01 | W.PN.HOSP.TC ---
Today's Communication/Plan
-
maintain on empiric steroids
monitor T curve
Assessment / Plan
Assessment / Plan
1. Acute arthritis of right wrist
Recent presumed inflammatory arthritis of right elbow
-Patient have undergone treatment with antibiotic treatment for 2 weeks for right elbow arthritis
-Patient presented with right wrist pain/swelling
-Attempted arthrocentesis by interventional radiology although not enough fluid for drainage. Resume back on eliquis 5mg BID
-Patient was given empiric IV antibiotics in ER, discontinued for now
-Patient is a history of gout and currently on oral prednisone 40 mg daily. With history of renal transplant not appropriate for colchicine therapy.
-Continue home pain medication of oral oxycodone with IV Dilaudid for breakthrough
2. DANYA on CKD stage IIIa
History of polycystic kidney status post renal transplant
-Renal function has normalized to 1.2 today
-Patient on regimen of tacrolimus/CellCept, maintain on it
3. Paroxysmal afib
-Resume back on home dose of Eliquis
-Continue home dose of Toprol-XL
4. Chronic pain and narcotic dependence
-Patient PDMP reviewed, on oxycodone 20 mg x5 times a day
-resume back on oxy 20mg q6h for now
5. Hyperkalemia
-Switch to low potassium diet
-Dose of oral lokelma to be given
COVID-19 viral infection
Chronic back pain
History of chronic pancreatitis
DVT prophylaxis -Eliquis
Full code
Total time spent : 53 mins
Anticipated Discharge: 24 - 48 hours
Subjective/Interval History
-
Date of Service: June 03, 2024
Continues to complain right wrist pain
Afebrile overnight
Objective Data
-
Labs:
Laboratory Results
06/03/24
07:13
WBC 4.8
Hgb 11.0 L
Hct 33.2 L
Plt Count 144
Sodium 137
Potassium 5.5 H D
Chloride 101
Carbon Dioxide 28
BUN 31 H
Creatinine 1.2
Glucose 85
Calcium 9.0
Vital Signs:
Vital Signs
Temp Pulse Resp BP Pulse Ox
98.3 F 88 16 125/81 99
06/03/24 07:35 06/03/24 08:20 06/03/24 07:35 06/03/24 08:20 06/03/24 07:35
I&O
06/02/24 06/03/24 06/04/24
06:59 06:59 06:59
Intake Total 480 / 480
Balance 480 / 480
Review of Systems
-
Respiratory: Reports No Symptoms
Cardiac: Reports No Symptoms
Abdomen/GI: Reports No Symptoms
Physical Exam
-
General: No Apparent Distress and Comfortable
HEENT: Negative Oxygen
Respiratory: Clear to Auscultation
Cardiac: Regular Rhythm and S1/S2; Negative Murmur or Rub
GI: Soft, Nontender, Nondistended and Normal Bowel Sounds
Musculoskeletal: No Edema and Other (Right wrist swelling)
Neuro: Awake, Alert, Oriented, No Motor Deficits and Nonfocal/Grossly Intact
Psych: Calm
[2024-06-03] MEDS: LOKELMA 10 GRAM PO (14:43)
[2024-06-03 15:00] VITALS: BP 111/66
[2024-06-03 17:09] LABS: Glucose - Point of Care 387 mg/dl (70-99)
[2024-06-03] MEDS: NOVOLOG FLEXPEN-LOW RESISTANCE 5 UNITS SC (17:10)
[2024-06-03] MEDS: CRESTOR 20 MG PO (17:50)
[2024-06-03] MEDS: PROGRAF 1.5 MG PO (17:50)
[2024-06-03] MEDS: FLUSH (NSS) 1 FLUSH IV (19:39)
[2024-06-03] MEDS: ELIQUIS 5 MG PO (19:41)
[2024-06-03 19:44] VITALS: BP 96/57
[2024-06-03 21:34] LABS: Glucose - Point of Care 290 mg/dl (70-99)
[2024-06-03 23:00] VITALS: BP 98/57
[2024-06-04] VITALS (7 sets, daily range): BP systolic 87–109; BP diastolic 55–68
[2024-06-04] MEDS: ROXICODONE 20 MG PO ×5 (00:30→23:01)
[2024-06-04 05:55] LABS: Hematocrit 31.5 % (39.0-52.0); Hemoglobin 10.2 g/dL (13.0-18.0); Mean Corp Hgb Conc. 32.4 g/dL (33.0-37.0); Mean Corpuscular Hgb 30.8 pg (27.0-31.0); Mean Corpuscular Volume 95.2 fL (80.0-94.0); Mean Platelet Volume 12.4 fL (7.4-10.4); Platelet Count 125 10^3/uL (130-400); Red Blood Cell Count 3.31 10^6/uL (4.70-6.10); Red Cell Dist. Width 13.1 % (11.5-14.5); White Blood Cell Count 3.5 10^3/uL (4.8-10.8)
[2024-06-04 06:05] LABS: Blood Urea Nitrogen 38 mg/dl (9-20); Calcium 8.9 mg/dl (8.4-10.2); Carbon Dioxide 26 mmol/L (22-30); Chloride 100 mmol/L (98-107); Estimated Creatinine Clearance 46 ml/min; Glucose 229 mg/dl (70-99); Potassium 5.1 mmol/L (3.5-5.1); Sodium 136 mmol/L (135-145); eGFR 57.29
[2024-06-04 07:07] LABS: Glucose - Point of Care 184 mg/dl (70-99)
[2024-06-04] MEDS: NOVOLOG FLEXPEN-LOW RESISTANCE 1 UNITS SC ×2 (08:35→12:04)
[2024-06-04] MEDS: TOPROL XL 12.5 MG PO (08:35)
[2024-06-04] MEDS: ELIQUIS 5 MG PO ×2 (08:35→20:43)
[2024-06-04] MEDS: DELTASONE 40 MG PO (08:35)
[2024-06-04] MEDS: TRICOR 48 MG PO (08:35)
[2024-06-04] MEDS: PROGRAF 2 MG PO (08:35)
[2024-06-04] MEDS: THERAGRAN 1 TABLET PO (08:35)
[2024-06-04] MEDS: CELLCEPT 500 MG PO ×2 (08:36→20:43)
[2024-06-04 11:25] LABS: Glucose - Point of Care 199 mg/dl (70-99)
--- NOTE | 2024-06-04 14:11 | W.PN.HOSP.TC ---
Today's Communication/Plan
-
see note
possible d/c tomorrow
Assessment / Plan
Assessment / Plan
1. Acute arthritis of right wrist - presumed inflammatory arthropathy vs gout
Recent presumed inflammatory arthritis of right elbow
-Patient have undergone treatment with antibiotic treatment for 2 weeks for right elbow arthritis
-Patient presented with right wrist pain/swelling
-Attempted arthrocentesis by interventional radiology although not enough fluid for drainage. Resume back on eliquis 5mg BID
-Patient was given empiric IV antibiotics in ER, discontinued for now
-Patient is a history of gout and currently on oral prednisone 40 mg daily. With history of renal transplant not appropriate for colchicine therapy.
-Continue home pain medication of oral oxycodone with IV Dilaudid for breakthrough
-Patient have significant clinical improvement with higher dose of oral prednisone therapy, likely can be discharged tomorrow on tapering course of prednisone. Discussed need of follow-up with rheumatology in office.
2. DANYA on CKD stage IIIa
History of polycystic kidney status post renal transplant
-Renal function has normalized to 1.2 today
-Patient on regimen of tacrolimus/CellCept, maintain on it
3. Paroxysmal afib
-Resume back on home dose of Eliquis
-Continue home dose of Toprol-XL
4. Chronic pain and narcotic dependence
-Patient PDMP reviewed, on oxycodone 20 mg x5 times a day
-resume back on oxy 20mg q6h for now
5. Hyperkalemia
-Switch to low potassium diet
-Dose of oral lokelma to be given
COVID-19 viral infection
Chronic back pain
History of chronic pancreatitis
DVT prophylaxis -Eliquis
Full code
Anticipated Discharge: Within 24 hours
Subjective/Interval History
-
Date of Service: June 04, 2024
right wrist pain is better
no fever overnight
Objective Data
-
Labs:
Laboratory Results
06/04/24
05:30
WBC 3.5 L
Hgb 10.2 L
Hct 31.5 L
Plt Count 125 L
Sodium 136
Potassium 5.1
Chloride 100
Carbon Dioxide 26
BUN 38 H
Creatinine 1.3
Glucose 229 H
Calcium 8.9
Vital Signs:
Vital Signs
Temp Pulse Resp BP Pulse Ox
98.1 F 75 18 109/59 99
06/04/24 11:30 06/04/24 11:30 06/04/24 11:30 06/04/24 11:30 06/04/24 11:30
I&O
06/03/24 06/04/24 06/05/24
06:59 06:59 06:59
Intake Total 480 / 480 480 / 480 480 / 480
Balance 480 / 480 480 / 480 480 / 480
Review of Systems
-
Respiratory: Reports No Symptoms
Cardiac: Reports No Symptoms
Abdomen/GI: Reports No Symptoms
Physical Exam
-
General: No Apparent Distress and Comfortable
HEENT: Negative Oxygen
Respiratory: Clear to Auscultation
Cardiac: Regular Rhythm and S1/S2; Negative Murmur or Rub
GI: Soft, Nontender, Nondistended and Normal Bowel Sounds
Musculoskeletal: No Edema and Other (Right wrist swelling)
Neuro: Awake, Alert, Oriented, No Motor Deficits and Nonfocal/Grossly Intact
Psych: Calm
[2024-06-04 16:28] LABS: Glucose - Point of Care 363 mg/dl (70-99)
[2024-06-04] MEDS: NOVOLOG FLEXPEN-LOW RESISTANCE 5 UNITS SC (17:12)
[2024-06-04] MEDS: PROGRAF 1.5 MG PO (17:12)
[2024-06-04] MEDS: NOVOLOG FLEXPEN 3 UNITS SC (17:12)
[2024-06-04] MEDS: CRESTOR 20 MG PO (17:12)
[2024-06-04 21:25] LABS: Glucose - Point of Care 163 mg/dl (70-99)
[2024-06-05 02:43] VITALS: BP 107/64
[2024-06-05] MEDS: ROXICODONE 20 MG PO ×2 (06:26→11:55)
[2024-06-05 07:00] VITALS: BP 109/85
[2024-06-05 07:15] LABS: Glucose - Point of Care 152 mg/dl (70-99)
[2024-06-05 07:56] LABS: Hematocrit 35.4 % (39.0-52.0); Hemoglobin 11.3 g/dL (13.0-18.0); Mean Corp Hgb Conc. 31.9 g/dL (33.0-37.0); Mean Corpuscular Hgb 29.6 pg (27.0-31.0); Mean Corpuscular Volume 92.7 fL (80.0-94.0); Mean Platelet Volume 11.8 fL (7.4-10.4); Platelet Count 167 10^3/uL (130-400); Red Blood Cell Count 3.82 10^6/uL (4.70-6.10); Red Cell Dist. Width 13.1 % (11.5-14.5); White Blood Cell Count 3.4 10^3/uL (4.8-10.8)
[2024-06-05 08:20] LABS: Blood Urea Nitrogen 42 mg/dl (9-20); Calcium 9.7 mg/dl (8.4-10.2); Carbon Dioxide 29 mmol/L (22-30); Chloride 98 mmol/L (98-107); Estimated Creatinine Clearance 50 ml/min; Glucose 163 mg/dl (70-99); Sodium 138 mmol/L (135-145); eGFR > 60.00
[2024-06-05] MEDS: DELTASONE 40 MG PO (08:27)
[2024-06-05] MEDS: NOVOLOG FLEXPEN 3 UNITS SC ×2 (08:27→12:00)
[2024-06-05] MEDS: NOVOLOG FLEXPEN-LOW RESISTANCE 1 UNITS SC ×2 (08:27→12:00)
[2024-06-05] MEDS: TOPROL XL 12.5 MG PO (08:29)
[2024-06-05] MEDS: THERAGRAN 1 TABLET PO (08:29)
[2024-06-05] MEDS: TRICOR 48 MG PO (08:29)
[2024-06-05] MEDS: PROGRAF 2 MG PO (08:29)
[2024-06-05] MEDS: ELIQUIS 5 MG PO (08:29)
[2024-06-05] MEDS: CELLCEPT 500 MG PO (08:29)
--- NOTE | 2024-06-05 10:24 | CM ---
Reviewed the chart notes and spoke with the patient at the bedside. IMM reviewed. The patient anticipates being discharged to home with no needs. Patient's spouse will provide transportation. CM continues to be available to patient/family and is
monitoring medical plan for needs at discharge.
Plan: Discharge to home when medically stable.
[2024-06-05 11:00] VITALS: BP 112/68
--- NOTE | 2024-06-05 11:38 | W.PN.HOSP.TC ---
Today's Communication/Plan
-
Monitor vital signs
see plan
Right wrist swelling appears to be improving
Discharge with prednisone with taper
Patient aware that he needs to follow-up with rheumatology outpatient
Time of discharge 38 minutes
Assessment / Plan
Assessment / Plan
Acute arthritis of right wrist - presumed inflammatory arthropathy vs gout
Recent presumed inflammatory arthritis of right elbow
-Patient have undergone treatment with antibiotic treatment for 2 weeks for right elbow arthritis
-Patient presented with right wrist pain/swelling
-Attempted arthrocentesis by interventional radiology although not enough fluid for drainage. Resume back on eliquis 5mg BID
-Patient was given empiric IV antibiotics in ER, discontinued for now
-Patient is a history of gout and currently on oral prednisone 40 mg daily. With history of renal transplant not appropriate for colchicine therapy.
-Continue home pain medication of oral oxycodone with IV Dilaudid for breakthrough
-Patient have significant clinical improvement with higher dose of oral prednisone therapy, DC today with prednisone with taper.Discussed need of follow-up with rheumatology in office.
DANYA on CKD stage IIIa
History of polycystic kidney status post renal transplant
-Renal function has normalized to 1.2 today
-Patient on regimen of tacrolimus/CellCept, maintain on it
Paroxysmal afib
-Resume back on home dose of Eliquis
-Continue home dose of Toprol-XL
Chronic pain and narcotic dependence
-Patient PDMP reviewed, on oxycodone 20 mg x5 times a day
-resume back on oxy 20mg q6h for now
Hyperkalemia
-Switch to low potassium diet
improving
COVID-19 viral infection
Chronic back pain
History of chronic pancreatitis
DVT prophylaxis -Eliquis
Full code
General: No Apparent Distress and Comfortable
HEENT: Negative Oxygen
Respiratory: Clear to Auscultation
Cardiac: Regular Rhythm and S1/S2; Negative Murmur or Rub
GI: Soft, Nontender, Nondistended and Normal Bowel Sounds
Musculoskeletal: No Edema and Other (Right wrist swelling)
Neuro: Awake, Alert, Oriented, No Motor Deficits and Nonfocal/Grossly Intact
Psych: Calm
Anticipated Discharge: Today
Subjective/Interval History
-
Date of Service: June 05, 2024
denies pain
Objective Data
-
Labs:
Laboratory Results
06/05/24
07:16
WBC 3.4 L
Hgb 11.3 L
Hct 35.4 L
Plt Count 167 D
Sodium 138
Potassium 5.0
Chloride 98
Carbon Dioxide 29
BUN 42 H
Creatinine 1.2
Glucose 163 H
Calcium 9.7
Vital Signs:
Vital Signs
Temp Pulse Resp BP Pulse Ox
97.7 F 102 18 109/85 96
06/05/24 02:43 06/05/24 08:29 06/05/24 02:43 06/05/24 08:29 06/05/24 02:43
I&O
06/04/24 06/05/24 06/06/24
06:59 06:59 06:59
Intake Total 480 / 480 1740 / 1740
Balance 480 / 480 1740 / 1740
--- NOTE | 2024-06-05 11:45 | W.DCSUMMARY ---
Discharge Summary
Discharge Data
Date of Admission: 06/02/24
Date of Discharge: 06/05/24
-
Pending Results: No
Hospital Course
74-year-old male with past medical history of CKD, paroxysmal atrial fibrillation, chronic pain and narcotic dependence, chronic pancreatitis came to the hospital with acute arthritis of the right wrist which was initially thought was infectious
however patient did not had enough fluid for IR to drain. Infectious disease then discontinued patient's antibiotics. It was thought that patient symptoms could be likely secondary to inflammatory arthritis and possible gout. Patient markedly
improved on steroids. On discharge he was discharged on prednisone with taper with instructions to follow-up with rheumatology closely outpatient. He also had acute kidney injury on chronic kidney disease which over time continue to improve. He
was back to his baseline renal status prior to discharge. Since his symptoms continue to improve, he was then discharged home with instructions to follow-up with all his physicians outpatient.
Discharge Plan
-
Patient Disposition: Home (Routine Discharge)
Discharge Diagnosis/Procedures: Acute arthritis of right wrist presumed gout
Acute kidney injury on chronic kidney disease
Diet: As tolerated
Activity: As tolerated
Driving Restrictions: As prior to admission
Bathing Restrictions: None
Activity Restrictions/Additional Instructions:
Please follow-up with rheumatology outpatient
Referrals:
Larry Paz MD [Family Provider] - in less than 1 week
Prescriptions:
New
pantoprazole 40 mg Tablet,Delayed Release (Dr/Ec)
40 mg PO DAILY Qty: 30 0RF
prednisone 10 mg Tablet
See Rx Instructions .ROUTE .COMPLEX Qty: 30 0RF
Rx Instructions:
Take By Mouth:
40 mg daily x3 days, 30 mg daily x3 days,
20 mg daily x3 days, 10 mg daily x3 days.
Continued
mycophenolate mofetil [CellCept] 250 MG capsule
500 mg PO BID
fenofibrate nanocrystallized [Tricor] 48 MG tablet
48 mg PO BID
glimepiride 2 mg Tablet
2 mg PO DAILY
multivitamin Tablet
1 tab PO DAILY
metoprolol succinate 25 mg tablet extended release 24 hr
12.5 mg PO DAILY
rosuvastatin 20 mg Tablet
20 mg PO QPM
oxycodone 20 mg Tablet
20 mg PO Q6H
Eliquis 5 MG tablet
5 mg PO BID
tacrolimus 1 MG capsule
2 mg PO DAILY Qty: 0 0RF
tacrolimus 0.5 MG capsule
1.5 mg PO QPM Qty: 0 0RF
sennosides [senna] 8.6 mg Tablet
17.2 mg PO BIDPRN PRN (Reason: CONSTIPATION)
Held
prednisone 5 MG tablet
5 mg PO DAILY Qty: 0 0RF
Hold Instructions: Restart when done with taper steroid
Rx Instructions:
resume this dosing after completion of taper prescription
Discharge Orders:
Discharge Patient (As Directed); Ordered 06/05/24
Ordered By: Jose Steven
Discharge Date and Time
Discharge Date/Time: 06/05/24 13:57
Print Language: KITTITIAN
[2024-06-05] MEDS: PROTONIX 40 MG PO (11:55)
[2024-06-05 12:02] LABS: Glucose - Point of Care 172 mg/dl (70-99)
== END 2024-06-05 13:57 | disposition home or self-care (01) | DRG 553 ==
LOC: 4 WEST ACU 15:24
PROVIDERS: Nurse Practitioner Family; Student in an Organized Health Care Education/Training Program; ADMITTING PHYSICIAN Hospitalist; ATTENDING PHYSICIAN Internal Medicine; CONSULT PHYSICIAN Student in an Organized Health Care Education/Training Program; EMERGENCY PHYSICIAN Emergency Medicine; FAMILY PHYSICIAN Internal Medicine
DX: M18.11 Unilateral primary osteoarthritis of first carpometacarpal joint, right hand (principal); U07.1 COVID-19; T86.19 Other complication of kidney transplant; N17.9 Acute kidney failure, unspecified; F11.23 Opioid dependence with withdrawal; D84.821 Immunodeficiency due to drugs; K86.1 Other chronic pancreatitis; Q61.3 Polycystic kidney, unspecified; M10.9 Gout, unspecified; I48.0 Paroxysmal atrial fibrillation; Y83.0 Surgical operation with transplant of whole organ as the cause of abnormal reaction of the patient, or of later complication, without mention of misadventure at the time of the procedure; M19.031 Primary osteoarthritis, right wrist; D45 Polycythemia vera; M25.521 Pain in right elbow; I15.1 Hypertension secondary to other renal disorders; E87.5 Hyperkalemia; G89.29 Other chronic pain; F10.10 Alcohol abuse, uncomplicated; E11.22 Type 2 diabetes mellitus with diabetic chronic kidney disease; N18.31 Chronic kidney disease, stage 3a; D69.6 Thrombocytopenia, unspecified; E78.00 Pure hypercholesterolemia, unspecified; I25.10 Atherosclerotic heart disease of native coronary artery without angina pectoris; I25.2 Old myocardial infarction; Z79.01 Long term (current) use of anticoagulants; Z95.1 Presence of aortocoronary bypass graft; Z86.16 Personal history of COVID-19; Z79.621 Long term (current) use of calcineurin inhibitor; Z79.84 Long term (current) use of oral hypoglycemic drugs
CPT/HCPCS: 20605; 36415; 73110; 76882; 80048; 80053; 80197; 81003; 81015; 82570; 82962; 83605; 83735; 84156; 84550; 85025; 85027; 85652; 86140; 87015; 87040; 87070; 87205; 96374; 99152; 99285

== ENCOUNTER → 2024-07-06 07:16 | Outpatient (REF) | payer MEDICARE, OTHER, SELFPAY ==
[2024-07-06 08:04] LABS: % Basophils 0.3 % (0-2); % Eosinophils 1.6 % (0-6); % Immature Granulocytes 0.3 % (0-0.5); % Lymphocytes 21.6 % (20.5-51.1); % Monocytes 8.3 % (1.7-9.3); % Neutrophils 67.9 % (42.2-75.2); Absolute Eosinophils 0.1 10^3/uL (0-0.7); Absolute Lymphocytes 0.8 10^3/uL (1.2-3.4); Absolute Monocytes 0.3 10^3/uL (0.1-0.6); Absolute Neutrophils 2.6 10^3/uL (1.4-6.5); Hematocrit 38.6 % (39.0-52.0); Hemoglobin 11.7 g/dL (13.0-18.0); Mean Corp Hgb Conc. 30.3 g/dL (33.0-37.0); Mean Corpuscular Hgb 30.7 pg (27.0-31.0); Mean Corpuscular Volume 101.3 fL (80.0-94.0); Mean Platelet Volume 12.2 fL (7.4-10.4); Nucleated Red Blood Cells % 0 % (-); Platelet Count 113 10^3/uL (130-400); Red Blood Cell Count 3.81 10^6/uL (4.70-6.10); White Blood Cell Count 3.8 10^3/uL (4.8-10.8)
[2024-07-06 08:49] LABS: ALT (SGPT) 21 U/L (0-50); AST (SGOT) 31 U/L (17-59); Albumin 3.9 g/dl (3.5-5.0); Alkaline Phosphatase 31 U/L (38-126); Blood Urea Nitrogen 34 mg/dl (9-20); Calcium 9.4 mg/dl (8.4-10.2); Carbon Dioxide 22 mmol/L (22-30); Chloride 109 mmol/L (98-107); Glucose 92 mg/dl (70-99); HDL Cholesterol 67 mg/dl; LDL Cholesterol, Calculated 18 mg/dl; Potassium 5.2 mmol/L (3.5-5.1); Sodium 142 mmol/L (135-145); Total Bilirubin 0.5 mg/dl (0.2-1.3); Total Cholesterol 104 mg/dl (50-199); Total Protein 5.9 g/dl (6.3-8.2); Triglyceride 99 mg/dl (10-149); Very Low Density Lipoprotein 19 mg/dl (0-30); eGFR 52.41
[2024-07-06 08:55] LABS: PSA, Total - Screen 1.05 ng/ml (0.0-4.0)
[2024-07-06 10:35] LABS: Erythrocyte Sed Rate 12 mm/hour (0-20)
[2024-07-06 14:50] LABS: Glycohemoglobin (HgbA1c) 6.8 % (4.0-5.6)
[2024-07-07 14:37] LABS: Hepatitis B Core Ab, IgM Negative (Negative)
[2024-07-07 15:55] LABS: Hepatitis B Surface Antigen Negative (Negative)
[2024-07-07 16:12] LABS: Hepatitis C Antibody Negative (Negative)
[2024-07-07 17:54] LABS: Hepatitis B Surface Antibody Negative
[2024-07-07 19:55] LABS: Tacrolimus (Prograft - FK506) 3.8 ng/mL
[2024-07-08 02:10] LABS: ANA, IgG Reflex to HEp-2 None Detected (None Detected)
[2024-07-08 03:22] LABS: SSA 52 (Ro)(ENA) Ab, IgG 1 AU/mL (0-40); SSA 60 (Ro)(ENA) Ab, IgG 0 AU/mL (0-40); SSB (La)(ENA) Ab, IgG 0 AU/mL (0-40)
[2024-07-08 09:50] LABS: Quantiferon Mitogen minus NIL 9.92 IU/mL; Quantiferon NIL 0.08 IU/mL; Quantiferon TB Gold Plus Negative (Negative)
== END ==
LOC: REG 07:16
PROVIDERS: ATTENDING PHYSICIAN Specialist; FAMILY PHYSICIAN Internal Medicine; REFERRING PHYSICIAN Student in an Organized Health Care Education/Training Program
DX: Z94.0 Kidney transplant status (principal); I10 Essential (primary) hypertension; E78.5 Hyperlipidemia, unspecified; Z12.5 Encounter for screening for malignant neoplasm of prostate; E11.59 Type 2 diabetes mellitus with other circulatory complications; M25.531 Pain in right wrist; Z79.01 Long term (current) use of anticoagulants; Z94.9 Transplanted organ and tissue status, unspecified; I25.9 Chronic ischemic heart disease, unspecified
CPT/HCPCS: 36415; 80053; 80061; 80197; 83036; 85025; 85652; 86038; 86235; 86480; 86705; 86706; 86803; 87340; G0103

== ENCOUNTER → 2024-07-15 08:34 | Outpatient (REF) | payer MEDICARE, OTHER, SELFPAY | LOC: RAD 08:34 | PROVIDERS: ATTENDING PHYSICIAN Internal Medicine; FAMILY PHYSICIAN Specialist | DX: R10.31 Right lower quadrant pain (principal); Z94.0 Kidney transplant status | CPT/HCPCS: 74176 ==

== ENCOUNTER → 2024-08-07 08:28 | Outpatient (REF) | payer MEDICARE, OTHER, SELFPAY ==
[2024-08-07 09:27] LABS: % Basophils 0.3 % (0-2); % Eosinophils 3.1 % (0-6); % Immature Granulocytes 0.3 % (0-0.5); % Lymphocytes 37.3 % (20.5-51.1); Absolute Eosinophils 0.1 10^3/uL (0-0.7); Absolute Lymphocytes 1.5 10^3/uL (1.2-3.4); Absolute Monocytes 0.3 10^3/uL (0.1-0.6); Hematocrit 34.9 % (39.0-52.0); Mean Corp Hgb Conc. 31.5 g/dL (33.0-37.0); Mean Corpuscular Hgb 30.8 pg (27.0-31.0); Mean Corpuscular Volume 97.8 fL (80.0-94.0); Mean Platelet Volume 12.9 fL (7.4-10.4); Nucleated Red Blood Cells % 0 % (-); Platelet Count 92 10^3/uL (130-400); Red Blood Cell Count 3.57 10^6/uL (4.70-6.10); Red Cell Dist. Width 14.4 % (11.5-14.5); White Blood Cell Count 3.9 10^3/uL (4.8-10.8)
== END ==
LOC: REG 08:28
PROVIDERS: ATTENDING PHYSICIAN Internal Medicine
DX: D64.9 Anemia, unspecified (principal)
CPT/HCPCS: 36415; 85025

== ENCOUNTER → 2024-08-25 08:56 | Outpatient (REF) | payer MEDICARE, OTHER, SELFPAY ==
[2024-08-25 10:01] LABS: % Basophils 0.3 % (0-2); % Eosinophils 1.8 % (0-6); % Immature Granulocytes 0.3 % (0-0.5); % Monocytes 9.1 % (1.7-9.3); % Neutrophils 62.5 % (42.2-75.2); Absolute Eosinophils 0.1 10^3/uL (0-0.7); Absolute Monocytes 0.4 10^3/uL (0.1-0.6); Absolute Neutrophils 2.4 10^3/uL (1.4-6.5); Hematocrit 35.7 % (39.0-52.0); Hemoglobin 11.3 g/dL (13.0-18.0); Mean Corp Hgb Conc. 31.7 g/dL (33.0-37.0); Mean Corpuscular Hgb 31.4 pg (27.0-31.0); Mean Corpuscular Volume 99.2 fL (80.0-94.0); Mean Platelet Volume 12.7 fL (7.4-10.4); Nucleated Red Blood Cells % 0 % (-); Platelet Count 92 10^3/uL (130-400); Red Cell Dist. Width 14.2 % (11.5-14.5); White Blood Cell Count 3.8 10^3/uL (4.8-10.8)
== END ==
LOC: RCS 08:56
PROVIDERS: ATTENDING PHYSICIAN Internal Medicine; FAMILY PHYSICIAN Internal Medicine
DX: I48.0 Paroxysmal atrial fibrillation (principal); I25.10 Atherosclerotic heart disease of native coronary artery without angina pectoris; R60.0 Localized edema; D72.819 Decreased white blood cell count, unspecified; D69.6 Thrombocytopenia, unspecified
CPT/HCPCS: 36415; 85025; 93306

== ENCOUNTER 2025-01-17 08:34 | Emergency (ER) | payer MEDICARE, OTHER, SELFPAY ==
[2025-01-17 08:36] VITALS: BP 117/71
[2025-01-17 09:28] VITALS: BMI 22.8
[2025-01-17 09:40] LABS: % Basophils 0.2 % (0-2); % Immature Granulocytes 0.4 % (0-0.5); % Lymphocytes 31.7 % (20.5-51.1); % Monocytes 9.1 % (1.7-9.3); % Neutrophils 57.6 % (42.2-75.2); Absolute Eosinophils 0.1 10^3/uL (0-0.7); Absolute Lymphocytes 1.7 10^3/uL (1.2-3.4); Absolute Monocytes 0.5 10^3/uL (0.1-0.6); Hematocrit 41.4 % (39.0-52.0); Hemoglobin 13.5 g/dL (13.0-18.0); Mean Corp Hgb Conc. 32.6 g/dL (33.0-37.0); Mean Corpuscular Hgb 31.8 pg (27.0-31.0); Mean Corpuscular Volume 97.6 fL (80.0-94.0); Mean Platelet Volume 12.5 fL (7.4-10.4); Nucleated Red Blood Cells % 0 % (-); Platelet Count 127 10^3/uL (130-400); Red Blood Cell Count 4.24 10^6/uL (4.70-6.10); Red Cell Dist. Width 13.4 % (11.5-14.5); White Blood Cell Count 5.3 10^3/uL (4.8-10.8)
--- NOTE | 2025-01-17 09:54 | ED.GENMED ---
History of Present Illness
General
Chief Complaint: Heart Rate Problem
Source: patient
Exam Limitations: none
Time Seen by Provider: 01/17/25 09:02
Nursing documentation reviewed up to this point in time: agreed with
History of Present Illness
History of Present Illness:
74-year-old male with a past medical history of hypertension, hyperlipidemia, CAD status post CABG, atrial fibrillation on Eliquis, diabetes, polycystic kidney status post transplant who presents to the emergency department for evaluation of fatigue
and headache. Patient reports that he was outside doing yard work yesterday and felt fatigued at the end of the day. He woke up in the middle the night with with some palpitations and irregular heart rate consistent with his A-fib symptoms. This
morning he woke up and was feeling very fatigued and had a headache. He was continued to have some erratic heart rate. He took his normal dose of metoprolol which improved his palpitations but came to the emergency room because he was still not
feeling right. He denies any chest pain or shortness of breath. He denies any dizziness or syncope. He denies any nausea, vomiting, diarrhea recently and has not had any abdominal pain. Denies urinary symptoms. Denies recent illness or fever.
He denies any focal weakness or numbness in extremities, change in his vision or speech. He admits that he does not drink very much water yesterday.
Past History
Past History
ED Past Medical History: Arrthythmia (paroxysmal afib), CAD, HTN, Hypercholesterolemia, DC, Other (thrombocytopenia, polycythemia vera.), Other (DVT) and Other
ED Past Surgical History: Cardiac (CABG 2006) and Other (renal transplant 2004)
Patient has exhibited threatening behavior?: No
PSI?: No
Social History
Tobacco: Non-smoker
Alcohol: Chronic alcoholic (states he no longer drinks)
Personal:
Living: with family
Review of Systems
Review of Systems
All Other Systems: ROS reviewed and negative except as documented in HPI and ROS
Constitutional: Reports fatigue; Denies fever or chills
Respiratory: Denies cough or trouble breathing
Cardiac: Reports palpitations; Denies chest pain
ABD/GI: Denies abdominal pain, nausea, vomiting or diarrhea
: Denies dysuria or flank pain
Musculoskeletal: Denies neck pain or back pain
Neurological: Reports headache; Denies dizzy, weakness or numbness
Phy Exam
Physical Exam
Physical Exam:
General: Awake, alert, oriented x3; no acute distress
Head: Normocephalic, atraumatic
Eyes: Conjunctiva normal, EOMI, pupils equal round and reactive to light bilaterally
Throat: Airway intact, handling secretions
Neck: Trachea midline, no JVD
Lungs: Clear to auscultation bilaterally, no wheezing, rales, rhonchi
Heart: Regular rate and irregular rhythm, no murmurs, gallops, or rubs
Abd: Soft, non distended, nontender
Neuro: Cranial nerves g intact, speech fluid, motor and sensory intact
Extremities: No edema in extremities, no calf tenderness, equal pulses in all extremities
Scores
Heart Failure Risk
Heart Failure Risk Score: Not Applicable
Heart Score for Chest Pain Patients
STEMI patient?: Not applicable
Withdrawal Assessment of Alcohol
Withdrawal Assessment Completed?: Not applicable
Course
Orders/Labs/Results
Orders:
Orders
01/17/25 08:40
Electrocardiogram (*1) Urgent
Reason for Study: Palpitations
EKG- Treatment ONCE
01/17/25 09:27
Complete Blood Count/With Diff Urgent
Comprehensive Metabolic Panel Urgent
01/17/25 09:45
0.9% Sodium Chloride 500 ml [Nss] 500 ml IV BOLUS
Abnormal Lab Results
01/17/25
09:27
RBC 4.24 L 10^6/uL
(4.70-6.10)
MCV 97.6 H fL
(80.0-94.0)
MCH 31.8 H pg
(27.0-31.0)
MCHC 32.6 L g/dL
(33.0-37.0)
Plt Count 127 L 10^3/uL
(130-400)
MPV 12.5 H fL
(7.4-10.4)
BUN 35 H mg/dl
(9-20)
Creatinine 1.6 H mg/dL
(0.7-1.3)
Glucose 204 H mg/dl
(70-99)
Alkaline Phosphatase 27 L U/L
(38-126)
01/17/25 09:27
01/17/25 09:27
Vital Signs
Initial and Last Documented VS:
Initial Vital Signs
Temp Pulse Resp BP Pulse Ox
36.8 C 79 18 117/71 97
01/17/25 08:36 01/17/25 08:36 01/17/25 08:36 01/17/25 08:36 01/17/25 08:36
Last Documented Vital Signs
Temp Pulse Resp BP Pulse Ox
36.8 C 69 12 117/71 97
01/17/25 08:36 01/17/25 09:04 01/17/25 09:04 01/17/25 08:36 01/17/25 09:04
MDM/Problems Addressed
Differential Diagnosis Includes:
Dehydration, anemia, electrolyte derangement, symptomatic A-fib
MDM/Problems Addressed:
74-year-old male presents for evaluation of fatigue and headache as well as irregular heart rate�he says irregular heart rate is typical for his A-fib symptoms but fatigue and headache is new. He did do yard work yesterday and was not tracking very
much water. Vitals and exam as above�notably his heart rate is in the 60s and 70s. EKG shows atrial fibrillation with controlled ventricular rate. Will plan to place an IV check labs including CBC and CMP. Provide some IV fluids. Monitor
closely reassess after the above�suspect likely some mild dehydration.
Labs reviewed: CBC and CMP no clinically significant abnormalities. After fluids patient says he is feeling much better. He wants to go home. Headache improved. Heart rate remains 60s to 70s. I do suspect he likely had some mild dehydration I
think he is stable for discharge to follow-up with his primary doctor. Spoke about return precautions and all questions were answered.
Chronic conditions affecting care:
A-fib
*Pulse Oximetry
Patient hypoxic: no
*EKG
Interpreted by ED Provider?: Yes
Heart Rate: 93
Rate: normal
Rhythm: a-fib
[place]: normal axis
Interval: normal interval
QRS Pattern: normal QRS
Ischemia: no ischemia
*Critical Care Note
Total Time (30-74mins, 75-104mins- exclusive of procedures): Not Applicable
Data Reviewed
Review of Other/Old Records Reveals: Labs and Records
Source: patient and spouse
ED Attending Note
-
Portions of this chart may have been created with voice recognition software.� Occasional wrong word or��sound alike� substitutions may have occurred due to the inherent limitations of voice recognition software.
Discharge Plan
Departure
Patient Disposition: Home (Routine Discharge)
Date of Disposition: 01/17/25
Time of Disposition: 11:28
Patient with high blood pressure during this ER visit?: No
Discharge Problem:
Headache, Dehydration, Atrial fibrillation
Instructions: Atrial Fibrillation (DC), Hypovolemia in adults
Prescriptions:
No Action
mycophenolate mofetil [CellCept] 250 MG capsule
500 mg PO BID
fenofibrate nanocrystallized [Tricor] 48 MG tablet
48 mg PO BID
glimepiride 2 mg Tablet
2 mg PO DAILY
prednisone 5 MG tablet
5 mg PO DAILY Qty: 0 0RF
Rx Instructions:
resume this dosing after completion of taper prescription
multivitamin Tablet
1 tab PO DAILY
metoprolol succinate 25 mg tablet extended release 24 hr
12.5 mg PO DAILY
rosuvastatin 20 mg Tablet
20 mg PO QPM
oxycodone 20 mg Tablet
20 mg PO Q6H
Eliquis 5 MG tablet
5 mg PO BID
tacrolimus 1 MG capsule
2 mg PO DAILY Qty: 0 0RF
tacrolimus 0.5 MG capsule
1.5 mg PO QPM Qty: 0 0RF
sennosides [senna] 8.6 mg Tablet
17.2 mg PO BIDPRN PRN (Reason: CONSTIPATION)
pantoprazole 40 mg Tablet,Delayed Release (Dr/Ec)
40 mg PO DAILY Qty: 30 0RF
prednisone 10 mg Tablet
See Rx Instructions .ROUTE .COMPLEX Qty: 30 0RF
Rx Instructions:
Take By Mouth:
40 mg daily x3 days, 30 mg daily x3 days,
20 mg daily x3 days, 10 mg daily x3 days.
Referrals:
Larry Paz MD [Family Provider, Internal Medicine] - Follow up in 5-7 days
Activity Restrictions/Additional Instructions:
Thank you for visiting the Emergency Department at [facility].
1. Please schedule a follow up appointment as directed. Call first thing tomorrow morning to make an appointment.
2. If indicated, please take your medications as instructed and indicated on discharge paperwork.
3. If any of your symptoms do not improve, or persist, or become more severe within 6-12 hours, please return to the emergency department for further care.
4. Please return to the emergency department if you develop a headache, neck pain/stiffness, fever greater than 100.4F, chest pain, shortness of breath, persistent nausea, vomiting, slurred speech, difficulty walking, numbness/tingling, weakness,
signs of infection or any other symptoms that are worrisome to you.
Please call [phone] if you have any questions.
Interventions
Interventions:
*Risk Screen - Suicide Last Done: 01/17/25 08:36
*General Assessment Last Done: 01/17/25 08:36
*Neglect/Abuse Screening Last Done: 01/17/25 08:36
Discharge Date and Time
Print Language: BRAZILIAN
[2025-01-17 10:00] LABS: ALT (SGPT) 15 U/L (0-50); AST (SGOT) 24 U/L (17-59); Albumin 4.4 g/dl (3.5-5.0); Alkaline Phosphatase 27 U/L (38-126); Blood Urea Nitrogen 35 mg/dl (9-20); Calcium 9.5 mg/dl (8.4-10.2); Carbon Dioxide 22 mmol/L (22-30); Chloride 107 mmol/L (98-107); Estimated Creatinine Clearance 42 ml/min; Glucose 204 mg/dl (70-99); Potassium 4.7 mmol/L (3.5-5.1); Sodium 140 mmol/L (135-145); Total Bilirubin 0.5 mg/dl (0.2-1.3); Total Protein 6.4 g/dl (6.3-8.2); eGFR 44.65
[2025-01-17] MEDS: NSS 500 IV (10:01)
[2025-01-17 10:03] VITALS: BP 113/66
[2025-01-17 11:00] VITALS: BP 96/61
[2025-01-17 11:38] VITALS: BP 104/43
[2025-01-17 11:40] VITALS: BP 104/43
== END 2025-01-17 11:40 | disposition home or self-care (01) ==
LOC: EMR 08:34
PROVIDERS: EMERGENCY PHYSICIAN Emergency Medicine; FAMILY PHYSICIAN Internal Medicine
DX: R51.9 Headache, unspecified (principal); E86.0 Dehydration; I48.91 Unspecified atrial fibrillation; I10 Essential (primary) hypertension; E78.00 Pure hypercholesterolemia, unspecified; I25.10 Atherosclerotic heart disease of native coronary artery without angina pectoris; E11.9 Type 2 diabetes mellitus without complications; Q61.3 Polycystic kidney, unspecified; Z79.01 Long term (current) use of anticoagulants; Z86.718 Personal history of other venous thrombosis and embolism; Z94.0 Kidney transplant status; Z95.1 Presence of aortocoronary bypass graft
CPT/HCPCS: 99283; 96360; 80053; 85025; 93005

== ENCOUNTER 2025-05-05 10:26 | Emergency (ER) | payer MEDICARE, OTHER, SELFPAY ==
[2025-05-05 10:50] VITALS: BP 130/61
[2025-05-05 12:21] VITALS: BP 123/82
[2025-05-05 13:00] VITALS: BP 113/60
[2025-05-05] MEDS: DILAUDID 2 MG IM (14:01)
[2025-05-05 14:04] VITALS: BP 113/69
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
== END 2025-05-05 14:51 | disposition home or self-care (01) ==
LOC: EMR 10:26
PROVIDERS: EMERGENCY PHYSICIAN Student in an Organized Health Care Education/Training Program; FAMILY PHYSICIAN Internal Medicine
DX: S20.211A Contusion of right front wall of thorax, initial encounter (principal); W20.8XXA Other cause of strike by thrown, projected or falling object, initial encounter; E78.00 Pure hypercholesterolemia, unspecified; I25.10 Atherosclerotic heart disease of native coronary artery without angina pectoris; I10 Essential (primary) hypertension; Q61.3 Polycystic kidney, unspecified; D45 Polycythemia vera; I48.0 Paroxysmal atrial fibrillation; Z79.01 Long term (current) use of anticoagulants; Z86.718 Personal history of other venous thrombosis and embolism; Z94.0 Kidney transplant status; Z95.1 Presence of aortocoronary bypass graft
CPT/HCPCS: 96372; 99284; 71101

== ENCOUNTER → 2025-05-15 06:49 | Outpatient (REF) | payer MEDICARE, OTHER, SELFPAY ==
[2025-05-15 08:39] LABS: Hematocrit 39.3 % (39.0-52.0); Hemoglobin 12.4 g/dL (13.0-18.0); Mean Corp Hgb Conc. 31.6 g/dL (33.0-37.0); Mean Corpuscular Volume 98.3 fL (80.0-94.0); Nucleated Red Blood Cells % 0 % (-); Platelet Count 159 10^3/uL (130-400); Red Cell Dist. Width 12.4 % (11.5-14.5)
[2025-05-15 08:43] LABS: Urine Character Clear (Clear)
[2025-05-15 09:17] LABS: ALT (SGPT) 15 U/L (0-50); AST (SGOT) 25 U/L (17-59); Albumin 4.2 g/dl (3.5-5.0); Alkaline Phosphatase 51 U/L (38-126); Blood Urea Nitrogen 29 mg/dl (9-20); Calcium 9.4 mg/dl (8.4-10.2); Calcium 9.8 mg/dl (8.4-10.2); Carbon Dioxide 30 mmol/L (22-30); Chloride 107 mmol/L (98-107); Glucose 98 mg/dl (70-99); HDL Cholesterol 51 mg/dl; LDL Cholesterol, Calculated 22 mg/dl; Magnesium 1.8 mg/dl (1.6-2.3); Potassium 5.1 mmol/L (3.5-5.1); Sodium 141 mmol/L (135-145); Total Protein 6.3 g/dl (6.3-8.2); Very Low Density Lipoprotein 19 mg/dl (0-30); eGFR 41.26
[2025-05-15 09:21] LABS: Glycohemoglobin (HgbA1c) 6.8 % (4.0-5.6)
[2025-05-17 08:45] LABS: Tacrolimus (Prograft - FK506) 5.7 ng/mL
== END ==
LOC: REG 06:49
PROVIDERS: ATTENDING PHYSICIAN Specialist; FAMILY PHYSICIAN Internal Medicine
DX: E11.59 Type 2 diabetes mellitus with other circulatory complications (principal); E78.2 Mixed hyperlipidemia; I10 Essential (primary) hypertension; Z94.0 Kidney transplant status
CPT/HCPCS: 36415; 80053; 80061; 80197; 81003; 81015; 82248; 82570; 83036; 83735; 83970; 84100; 84156; 85025